=== PATIENT | female | born 1950 | race Caucasian/White ===

== ENCOUNTER → 2022-02-07 10:32 | Outpatient (BNVA) | payer MEDICARE, OTHER, SELFPAY | PROVIDERS: PCP Internal Medicine; Visit Provider Psychiatry & Neurology Neurology | DX: G47.33 Obstructive sleep apnea (adult) (pediatric) (principal); G24.3 Spasmodic torticollis; Z92.29 Personal history of other drug therapy | CPT/HCPCS: 64616; 99211; J0585 ==

== ENCOUNTER → 2022-05-16 10:05 | Outpatient (BNVA) | payer MEDICARE, OTHER, SELFPAY | PROVIDERS: PCP Internal Medicine; Visit Provider Psychiatry & Neurology Neurology | DX: G24.3 Spasmodic torticollis (principal); G47.33 Obstructive sleep apnea (adult) (pediatric); Z92.29 Personal history of other drug therapy | CPT/HCPCS: 64616; 99211; J0585 ==

== ENCOUNTER → 2022-08-19 09:27 | Outpatient (BNVA) | payer MEDICARE, OTHER, SELFPAY | PROVIDERS: PCP Internal Medicine; Visit Provider Psychiatry & Neurology Neurology | DX: G24.3 Spasmodic torticollis (principal); G47.33 Obstructive sleep apnea (adult) (pediatric); Z92.29 Personal history of other drug therapy | CPT/HCPCS: 64616; 99211; J0585 ==

== ENCOUNTER → 2022-11-22 07:46 | Outpatient (BNVA) | payer MEDICARE, OTHER, SELFPAY | PROVIDERS: PCP Internal Medicine; Visit Provider Psychiatry & Neurology Neurology | DX: G24.3 Spasmodic torticollis (principal); G47.33 Obstructive sleep apnea (adult) (pediatric); Z92.29 Personal history of other drug therapy | CPT/HCPCS: 64616; 99211; J0585 ==

== ENCOUNTER → 2023-02-26 08:04 | Outpatient (BNVA) | payer MEDICARE, OTHER, SELFPAY | PROVIDERS: PCP Internal Medicine; Visit Provider Psychiatry & Neurology Neurology | DX: G24.3 Spasmodic torticollis (principal); G47.33 Obstructive sleep apnea (adult) (pediatric); Z92.29 Personal history of other drug therapy | CPT/HCPCS: 64616; 99211; J0585 ==

== ENCOUNTER 2023-06-02 09:07 | Outpatient (AMB) | payer MEDICARE, OTHER, SELFPAY ==
[2023-06-02 09:09] VITALS: PULSE 68; O2SAT 90; BMI 23.4
--- NOTE | 2023-06-02 09:09 | A.OFFVIS_ITS ---
Intake Vital Signs 06/02/23 09:09 Height 5 ft 4 in Weight 136 lb 6 oz BMI 23.4 Pulse 68 Pulse Source Pulse Oximeter Pulse Oximetry (%) 90 L Oxygen Delivery Method Room Air Intake Visit Reasons: BOTOX(B&B) Intake Note: Patient presents for botox injection Allergies codeine Allergy (Intermediate, Verified 06/02/23 09:12) Vomiting Medication List - Last Reconciled 06/02/23 by Zakiya Lee MD atorvastatin 10 mg PO DAILY baclofen 2 qam and 1 qhs as directedPO; lisinopril-hydrochlorothiazide 20-25 mg 1 tab PO DAILY onabotulinumtoxinA (Botox) 100 units IM [id number] HPI HPI Comments History of Present Illness Details 72y/0 female comes for treatment of her cervical dystonia ? Side effects including spread of toxin effect, dysphagia, breathing difficulties , bronchitis etc was discussed in detail and the patient agreed to the procedure.An informed consent was obtained ??? Botulinum toxin type A 100units X 1 -was diluted with 2 cc of normal saline at a concentration of 25 units in 0.5cc saline. Lot number [id number] expiration 02/2025 ??? Muscles injected ??? christo Splenius - 25 units each Right levator- 25 units ???Right Trapezius 25 ??? Total used 100 units PFSH Medical History HTN (hypertension) Hyperlipidemia Surgical History Hx of tonsillectomy Hx of tubal ligation Family History Father Myocardial infarct Social History Alcohol intake: current Patient Tobacco Use Status: Current everyday Tobacco user Physical Exam Vital Signs: Last Vital Signs Pulse 68 06/02/23 09:09 Pulse Ox 90 L 06/02/23 09:09 Oxygen Delivery Method Room Air 06/02/23 09:09 BMI result Body Mass Index 23.4 Const Other: antecollis and right laterocollis General: cooperative and healthy appearing Orientation/consciousness: patient oriented x3 Neuro Other: mild head tremors , right laterocollis General: patient oriented x3, gait normal, tone normal and moves all extremities Cranial nerves: Yes CN's II-XII intact bilaterally Cognition (Neuro): normal cognition Gait exam (Neuro): Other gait observations present (antecollis) Office Procedures Botulinum toxin Injection 11592 - Dystonia Procedure code (CPT) selection complete Office Meds onabotulinumtoxinA Performing Provider: Zakiya Lee MD Administered by: Zakiya Lee MD on 06/02/23 09:33 Dose Route Admin Location Lot Number Expiration Date [employer] 100 unit IM [id number] 02/15/25 9008-0128-72 [employer]/BOTOX Comments: see hpi Assessment & Plan Assessment & Plan (1) Status post injection of onabotulinumtoxinA: Code(s): Z92.29 - Personal history of other drug therapy (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
== END 2023-06-02 09:29 | disposition home or self-care (01) ==
PROVIDERS: Visit Provider Psychiatry & Neurology Neurology
DX: G24.3 Spasmodic torticollis (principal)
CPT/HCPCS: 64616

== ENCOUNTER → 2023-06-02 09:07 | Outpatient (BNVA) | payer MEDICARE, OTHER, SELFPAY | PROVIDERS: Visit Provider Psychiatry & Neurology Neurology | DX: G24.3 Spasmodic torticollis (principal); G47.33 Obstructive sleep apnea (adult) (pediatric); Z92.29 Personal history of other drug therapy; Z99.89 Dependence on other enabling machines and devices | CPT/HCPCS: 64616; J0585 ==

== ENCOUNTER 2023-09-03 08:50 | Outpatient (AMB) | payer MEDICARE, OTHER, SELFPAY ==
[2023-09-03 08:58] VITALS: BP 132/62; PULSE 75; RESP 17; O2SAT 97; BMI 23.5
--- NOTE | 2023-09-03 08:58 | MHC.OFFVIS ---
Intake Vital Signs 09/03/23 08:58 Height 5 ft 4 in Weight 137 lb 2 oz BMI 23.5 BP 132/62 Blood Pressure Location Lt brachial Position Sitting Respiration 17 Pulse 75 Pulse Source Pulse Oximeter Pulse Oximetry (%) 97 Oxygen Delivery Method Room Air Intake Visit Reasons: BOTOX(B&B)-confirmed Intake Note: Pt presents to office for Botox injections. Allergies codeine Allergy (Intermediate, Verified 09/03/23 08:58) Vomiting Medication List - Last Reconciled 09/03/23 by Zakiya Lee MD atorvastatin 10 mg PO DAILY baclofen 2 qam and 1 qhs as directedPO; lisinopril-hydrochlorothiazide 20-25 mg 1 tab PO DAILY onabotulinumtoxinA (Botox) 100 units IM [id number] HPI HPI Comments History of Present Illness Details 72y/0 female comes for treatment of her cervical dystonia ? Side effects including spread of toxin effect, dysphagia, breathing difficulties , bronchitis etc was discussed in detail and the patient agreed to the procedure.An informed consent was obtained ??? Botulinum toxin type A 100units X 1 -was diluted with 2 cc of normal saline at a concentration of 25 units in 0.5cc saline. Lot number [id number] expiration 12/2025 ??? Muscles injected ??? christo Splenius - 25 units each Right levator- 25 units ???Right Trapezius 25 ??? Total used 100 units PFSH Medical History Hyperlipidemia HTN (hypertension) Surgical History Hx of tubal ligation Hx of tonsillectomy Family History Father Myocardial infarct Social History Alcohol intake: current Patient Tobacco Use Status: Current everyday Tobacco user Physical Exam Vital Signs: Last Vital Signs Pulse 75 09/03/23 08:58 Resp 17 09/03/23 08:58 BP 132/62 09/03/23 08:58 Pulse Ox 97 09/03/23 08:58 Oxygen Delivery Method Room Air 09/03/23 08:58 BMI result Body Mass Index 23.5 Const Other: antecollis and right laterocollis General: cooperative and healthy appearing Orientation/consciousness: patient oriented x3 Neuro Other: mild head tremors , right laterocollis General: patient oriented x3, gait normal, tone normal and moves all extremities Cranial nerves: Yes CN's II-XII intact bilaterally Cognition (Neuro): normal cognition Gait exam (Neuro): Other gait observations present (antecollis) Office Procedures Botulinum toxin Injection 19711 - Dystonia Procedure code (CPT) selection complete Office Meds onabotulinumtoxinA 100 unit solution for injection Performing Provider: Zakiya Lee MD Performing Location[place] [facility] [place] [facility] Administered by: Zakiya Lee MD on 09/03/23 09:38 Dose Route Admin Location Dispensed Lot Number Expiration Date [facility] User Experience Designer 100 unit IM 100 units [id number] 12/18/25 8421-6264-00 [employer]ER[employer]/BOTOX Comments: see hpi Assessment & Plan Assessment & Plan (1) Status post injection of onabotulinumtoxinA: Code(s): Z92.29 - Personal history of other drug therapy (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
== END 2023-09-03 09:32 | disposition home or self-care (01) ==
PROVIDERS: PCP Student in an Organized Health Care Education/Training Program; Visit Provider Psychiatry & Neurology Neurology
DX: G24.3 Spasmodic torticollis (principal)
CPT/HCPCS: 64616

== ENCOUNTER → 2023-09-03 08:50 | Outpatient (BNVA) | payer MEDICARE, OTHER, SELFPAY | PROVIDERS: PCP Student in an Organized Health Care Education/Training Program; Visit Provider Psychiatry & Neurology Neurology | DX: G24.3 Spasmodic torticollis (principal); G47.33 Obstructive sleep apnea (adult) (pediatric); Z92.29 Personal history of other drug therapy | CPT/HCPCS: 64616; 99211; J0585 ==

== ENCOUNTER 2023-12-09 08:48 | Outpatient (AMB) | payer MEDICARE, OTHER, SELFPAY ==
--- NOTE | 2023-12-09 08:52 | MHC.OFFVIS ---
Intake Vital Signs 12/09/23 08:53 Height 5 ft 4 in Weight 134 lb 8 oz BMI 23.1 BP 154/88 H Blood Pressure Location Lt brachial Position Sitting Respiration 17 Pulse 83 Pulse Source Pulse Oximeter Pulse Oximetry (%) 97 Oxygen Delivery Method Room Air Intake Visit Reasons: BOTOX(B&B) - Confirmed Intake Note: Pt presents to the office for Botox injections. Treasury Director Required: No Allergies alendronate sodium [From Fosamax] Allergy (Intermediate, Verified 12/09/23 08:57) Diarrhea codeine Allergy (Intermediate, Verified 12/09/23 08:57) Vomiting Medication List - Last Reconciled 12/09/23 by Zakiya Lee MD atorvastatin 10 mg PO DAILY baclofen 2 qam and 1 qhs as directedPO; calcium carbonate (Calcium 500) 500 mg PO DAILY lisinopril-hydrochlorothiazide 20-25 mg 1 tab PO DAILY onabotulinumtoxinA (Botox) 100 units IM [id number] HPI HPI Comments History of Present Illness Details 73y/0 female comes for treatment of her cervical dystonia ? Side effects including spread of toxin effect, dysphagia, breathing difficulties , bronchitis etc was discussed in detail and the patient agreed to the procedure.An informed consent was obtained ??? Botulinum toxin type A 100units X 1 -was diluted with 2 cc of normal saline at a concentration of 25 units in 0.5cc saline. Lot number [id number] expiration 02/2026 ??? Muscles injected ??? christo Splenius - 25 units each Right levator- 25 units ???Right Trapezius 25 ??? Total used 100 units PFSH Medical History Hyperlipidemia HTN (hypertension) Surgical History Hx of tubal ligation Hx of tonsillectomy Family History Father Myocardial infarct Social History Alcohol intake: current Patient Tobacco Use Status: Current everyday Tobacco user Physical Exam Vital Signs: Last Vital Signs Pulse 83 12/09/23 08:53 Resp 17 12/09/23 08:53 BP 154/88 H 12/09/23 08:53 Pulse Ox 97 12/09/23 08:53 Oxygen Delivery Method Room Air 12/09/23 08:53 BMI result Body Mass Index 23.1 Const Other: antecollis and right laterocollis General: cooperative and healthy appearing Orientation/consciousness: patient oriented x3 Neuro Other: mild head tremors , right laterocollis General: patient oriented x3, gait normal, tone normal and moves all extremities Cranial nerves: Yes CN's II-XII intact bilaterally Cognition (Neuro): normal cognition Gait exam (Neuro): Other gait observations present (antecollis) Office Procedures Botulinum toxin Injection 35788 - Dystonia Procedure code (CPT) selection complete Office Meds onabotulinumtoxinA 100 unit solution for injection Performing Provider: Zakiya Lee MD [place]forming [place] [facility] [place] [facility] Administered by: Zakiya Lee MD on 12/09/23 09:44 Dose Route Admin Location Dispensed Lot Number Expiration Date [facility] [employer] Buying 100 unit IM 100 units [id number] 04/17/26 8417-1473-05 [employer] 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
[2023-12-09 08:53] VITALS: BP 154/88; PULSE 83; RESP 17; O2SAT 97; BMI 23.1
== END 2023-12-09 09:15 | disposition home or self-care (01) ==
PROVIDERS: PCP Student in an Organized Health Care Education/Training Program; Visit Provider Psychiatry & Neurology Neurology
DX: G24.3 Spasmodic torticollis (principal)
CPT/HCPCS: 64616

== ENCOUNTER → 2023-12-09 08:48 | Outpatient (BNVA) | payer MEDICARE, OTHER, SELFPAY | PROVIDERS: PCP Student in an Organized Health Care Education/Training Program; Visit Provider Psychiatry & Neurology Neurology | DX: G24.3 Spasmodic torticollis (principal); G47.33 Obstructive sleep apnea (adult) (pediatric); Z92.29 Personal history of other drug therapy | CPT/HCPCS: 64616; 99211; J0585 ==

== ENCOUNTER 2024-03-10 08:56 | Outpatient (AMB) | payer MEDICARE, OTHER, SELFPAY ==
--- NOTE | 2024-03-10 09:03 | A.OFFVIS_ITS ---
Vital Signs 03/10/24 09:04 Height 5 ft 4 in Weight 134 lb BMI 23.0 BP 128/64 Blood Pressure Location Rt brachial Position Sitting Respiration 16 Pulse 76 Pulse Source Pulse Oximeter Pulse Oximetry (%) 97 Oxygen Delivery Method Room Air Intake Visit Reasons: Botox (B&B) appt-CONF Intake Note: Pt presents to office for Botox injections. Allergies alendronate sodium [From Fosamax] Allergy (Intermediate, Verified 03/10/24 09:03) Diarrhea codeine Allergy (Intermediate, Verified 03/10/24 09:03) Vomiting Medication List - Last Reconciled 03/10/24 by Zakiya Lee MD atorvastatin 10 mg PO DAILY baclofen 2 qam and 1 qhs as directedPO; calcium carbonate (Calcium 500) 500 mg PO DAILY lisinopril-hydrochlorothiazide 20-25 mg 1 tab PO DAILY onabotulinumtoxinA (Botox) 100 units IM [id number] HPI Comments Details: 73y/0 female comes for treatment of her cervical dystonia ? Side effects including spread of toxin effect, dysphagia, breathing difficulties , bronchitis etc was discussed in detail and the patient agreed to the procedure.An informed consent was obtained ??? Botulinum toxin type A 100units X 1 -was diluted with 2 cc of normal saline at a concentration of 25 units in 0.5cc saline. Lot number [id number] expiration 02/2026 ??? Muscles injected ??? christo Splenius - 25 units each Right levator- 25 units ???Right Trapezius 25 ??? Total used 100 units PFSH Medical History Hyperlipidemia HTN (hypertension) Surgical History Hx of tubal ligation Hx of tonsillectomy Family History Father Myocardial infarct Social History Alcohol intake: current Patient Tobacco Use Status: Current everyday Tobacco user Physical Exam Vital Signs: Last Vital Signs Pulse 76 03/10/24 09:04 Resp 16 03/10/24 09:04 BP 128/64 03/10/24 09:04 Pulse Ox 97 03/10/24 09:04 Oxygen Delivery Method Room Air 03/10/24 09:04 BMI result Body Mass Index 23.0 Const Other: antecollis and right laterocollis General: cooperative and healthy appearing Orientation/consciousness: patient oriented x3 Neuro Other: mild head tremors , right laterocollis General: patient oriented x3, gait normal, tone normal and moves all extremities Cranial nerves: Yes CN's II-XII intact bilaterally Cognition (Neuro): normal cognition Gait exam (Neuro): Other gait observations present (antecollis) Office Procedures Botulinum toxin Injection 53270 - Dystonia Procedure code (CPT) selection complete Office Meds onabotulinumtoxinA 100 unit solution for injection Performing Provider: Zakiya Lee MD Performing Location: [facility] [place] [facility] Administered by: Zakiya Lee MD on 03/10/24 09:30 Dose Route Admin Location Dispensed Lot Number Expiration Date [facility] Furniture Builder 100 unit IM 100 units [id number] 02/15/26 1909-4963-62 [employer]ER[employer]/BOTOX Comments: see HPI Assessment & Plan Assessment & Plan (1) Status post injection of onabotulinumtoxinA: Code(s): Z92.29 - Personal history of other drug therapy (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 Category: Medical (3) Obstructive sleep apnea: Code(s): G47.33 - Obstructive sleep apnea (adult) (pediatric) Category: Medical Plan Patient tolerated the procedure well she will call with any side effects continue CPAP compliance stressed Orders: Orders AMB Botulinum toxin Injection Today G24.3 - Spasmodic torticollis Medications: New onabotulinumtoxinA 100 units IM ONCE 1 ea 0RF spasmodic torticollis G24.3 - Spasmodic torticollis Coding Level of Care Code Est Pt Level 1 (73388) Diagnoses Status post injection of onabotulinumtoxinA Z92.29 Spasmodic torticollis G24.3 Obstructive sleep apnea G47.33 CPT Codes Botox Injection - Botox 4: 50952 - Dystonia ([id number])
[2024-03-10 09:04] VITALS: BP 128/64; PULSE 76; RESP 16; O2SAT 97; BMI 23.0
== END 2024-03-10 09:27 | disposition home or self-care (01) ==
PROVIDERS: PCP Student in an Organized Health Care Education/Training Program; Visit Provider Psychiatry & Neurology Neurology
DX: G24.3 Spasmodic torticollis (principal)
CPT/HCPCS: 64616

== ENCOUNTER → 2024-03-10 08:56 | Outpatient (BNVA) | payer MEDICARE, OTHER, SELFPAY | PROVIDERS: PCP Student in an Organized Health Care Education/Training Program; Visit Provider Psychiatry & Neurology Neurology | DX: G24.3 Spasmodic torticollis (principal); G47.33 Obstructive sleep apnea (adult) (pediatric); Z92.29 Personal history of other drug therapy | CPT/HCPCS: 64616; 99211; J0585 ==

== ENCOUNTER 2024-06-14 09:20 | Outpatient (AMB) | payer MEDICARE, OTHER, SELFPAY ==
--- NOTE | 2024-06-14 09:37 | MHC.OFFVIS ---
Vital Signs 06/14/24 09:40 Height 5 ft 4 in Weight 134 lb BMI 23.0 Intake Visit Reasons: Botox - Conf Intake Note: Patient presents for botox injection Allergies alendronate sodium [From Fosamax] Allergy (Intermediate, Verified 06/14/24 09:39) Diarrhea codeine Allergy (Intermediate, Verified 06/14/24 09:39) Vomiting Medication List - Last Reconciled 06/14/24 by Zakiya Lee MD atorvastatin 10 mg PO DAILY baclofen 2 qam and 1 qhs as directedPO; calcium carbonate (Calcium 500) 500 mg PO DAILY lisinopril-hydrochlorothiazide 20-25 mg 1 tab PO DAILY onabotulinumtoxinA (Botox) 100 units IM [id number] HPI Comments Details: 73y/0 female comes for treatment of her cervical dystonia ? Side effects including spread of toxin effect, dysphagia, breathing difficulties , bronchitis etc was discussed in detail and the patient agreed to the procedure.An informed consent was obtained ??? Botulinum toxin type A 100units X 1 -was diluted with 2 cc of normal saline at a concentration of 25 units in 0.5cc saline. Lot number [id number] expiration 04/2026 ??? Muscles injected ??? christo Splenius - 25 units each Right levator- 25 units ???Right Trapezius 25 ??? Total used 100 units PFSH Medical History Hyperlipidemia HTN (hypertension) Surgical History Hx of tubal ligation Hx of tonsillectomy Family History Father Myocardial infarct Social History Alcohol intake: current Patient Tobacco Use Status: Current everyday Tobacco user Physical Exam Vital Signs: BMI result Body Mass Index 23.0 Const Other: antecollis and right laterocollis General: cooperative and healthy appearing Orientation/consciousness: patient oriented x3 Neuro Other: mild head tremors , right laterocollis General: patient oriented x3, gait normal, tone normal and moves all extremities Cranial nerves: Yes CN's II-XII intact bilaterally Cognition (Neuro): normal cognition Gait exam (Neuro): Other gait observations present (antecollis) Office Procedures Botulinum toxin Injection 48519 - Dystonia Procedure code (CPT) selection complete Office Meds onabotulinumtoxinA 100 unit solution for injection Performing Provider: Zakiya Lee MD [place] [facility] [place] [facility] Administered by: Zakiya Lee MD on 06/14/24 15:41 Dose Route Admin Location Dispensed Lot Number Expiration Date [facility] Commercial Underwriter 100 unit IM 100 units [id number] 04/17/26 6632-3026-92 [employer]/BOTOX Assessment & Plan Assessment & Plan (1) Status post injection of onabotulinumtoxinA: Code(s): Z92.29 - Personal history of other drug therapy (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 Category: Medical (3) Obstructive sleep apnea: Code(s): G47.33 - Obstructive sleep apnea (adult) (pediatric) Category: Medical Plan Patient tolerated the procedure well she will call with any side effects continue CPAP compliance stressed Orders: Orders AMB Botulinum toxin Injection Today G24.3 - Spasmodic torticollis Medications: New onabotulinumtoxinA 100 units IM ONCE 1 ea 0RF torticollis G24.3 - Spasmodic torticollis Coding Level of Care Code Est Pt Level 1 (94343) Diagnoses Status post injection of onabotulinumtoxinA Z92.29 Spasmodic torticollis G24.3 Obstructive sleep apnea G47.33 CPT Codes Botox Injection - Botox 4: 32448 - Dystonia ([id number])
[2024-06-14 09:40] VITALS: BMI 23.0
== END 2024-06-14 09:55 | disposition home or self-care (01) ==
PROVIDERS: PCP Student in an Organized Health Care Education/Training Program; Visit Provider Psychiatry & Neurology Neurology
DX: G24.3 Spasmodic torticollis (principal)
CPT/HCPCS: 64616

== ENCOUNTER → 2024-06-14 09:20 | Outpatient (BNVA) | payer MEDICARE, OTHER, SELFPAY | PROVIDERS: PCP Student in an Organized Health Care Education/Training Program; Visit Provider Psychiatry & Neurology Neurology | DX: G24.3 Spasmodic torticollis (principal); G47.33 Obstructive sleep apnea (adult) (pediatric); Z92.29 Personal history of other drug therapy | CPT/HCPCS: 64616; 99211; J0585 ==

== ENCOUNTER 2024-09-14 09:20 | Outpatient (AMB) | payer MEDICARE, OTHER, SELFPAY ==
[2024-09-14 09:24] VITALS: BP 130/58; PULSE 76; O2SAT 97
--- NOTE | 2024-09-14 09:24 | A.OFFVIS_ITS ---
Vital Signs 09/14/24 09:24 Height 5 ft 4 in BP 130/58 L Blood Pressure Location Rt brachial Position Sitting Pulse 76 Pulse Source Pulse Oximeter Pulse Oximetry (%) 97 Oxygen Delivery Method Room Air Intake Visit Reasons: Botox (B&B) Intake Note: Patient presents for a follow up. ( Botox ) Retail Special Event Associate Required: No Accompanied by: Self / Same As Patient Allergies alendronate sodium [From Fosamax] Allergy (Intermediate, Verified 09/14/24 09:29) Diarrhea codeine Allergy (Intermediate, Verified 09/14/24 09:29) Vomiting Medication List - Last Reconciled 09/14/24 by Zakiya Lee MD alendronate (Fosamax) 70 mg PO QWEEK atorvastatin 10 mg PO DAILY baclofen 2 qam and 1 qhs as directedPO; calcium carbonate (Calcium 500) 500 mg PO DAILY lisinopril-hydrochlorothiazide 20-25 mg 1 tab PO DAILY onabotulinumtoxinA (Botox) 100 units IM [id number] HPI Comments Details: 73y/0 female comes for treatment of her cervical dystonia ? Side effects including spread of toxin effect, dysphagia, breathing difficulties , bronchitis etc was discussed in detail and the patient agreed to the procedure.An informed consent was obtained ??? Botulinum toxin type A 100units X 1 -was diluted with 2 cc of normal saline at a concentration of 25 units in 0.5cc saline. Lot number C [id number] expiration 09/2026 ??? Muscles injected ??? christo Splenius - 25 units each Right levator- 25 units ???Right Trapezius 25 ??? Total used 100 units PFSH Medical History Hyperlipidemia HTN (hypertension) Surgical History Hx of tubal ligation Hx of tonsillectomy Family History Father Myocardial infarct Social History Alcohol intake: current Patient Tobacco Use Status: Current everyday Tobacco user Physical Exam Vital Signs: Last Vital Signs Pulse 76 09/14/24 09:24 BP 130/58 L 09/14/24 09:24 Pulse Ox 97 09/14/24 09:24 Oxygen Delivery Method Room Air 09/14/24 09:24 Const Other: antecollis and right laterocollis General: cooperative and healthy appearing Orientation/consciousness: patient oriented x3 Neuro Other: mild head tremors , right laterocollis General: patient oriented x3, gait normal, tone normal and moves all extremities Cranial nerves: Yes CN's II-XII intact bilaterally Cognition (Neuro): normal cognition Gait exam (Neuro): Other gait observations present (antecollis) Office Procedures Botulinum toxin Injection 22070 - Dystonia Procedure code (CPT) selection complete Office Meds onabotulinumtoxinA 100 unit solution for injection Performing Provider: Zakiya Lee MD Performing Location: [facility] [place] [facility] Administered by: Zakiya Lee MD on 09/14/24 10:05 Dose Route Admin Location Dispensed Lot Number Expiration Date [place] [employer] 100 unit IM 100 units [id number] 09/17/26 0493-6119-37 [employer]ERGAN/BOTOX Comments: see hpi Assessment & Plan Assessment & Plan (1) Status post injection of onabotulinumtoxinA: Code(s): Z92.29 - Personal history of other drug therapy (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 Category: Medical (3) Obstructive sleep apnea: Code(s): G47.33 - Obstructive sleep apnea (adult) (pediatric) Category: Medical Plan Patient tolerated the procedure well she will call with any side effects continue CPAP compliance stressed Orders: Orders AMB Botulinum toxin Injection Today G24.3 - Spasmodic torticollis Medications: New onabotulinumtoxinA 100 units IM ONCE 1 ea 0RF torticollis G24.3 - Spasmodic torticollis Coding Level of Care Code Est Pt Level 1 (28984) Diagnoses Status post injection of onabotulinumtoxinA Z92.29 Spasmodic torticollis G24.3 Obstructive sleep apnea G47.33 CPT Codes Botox Injection - Botox 4: 04409 - Dystonia ([id number])
== END 2024-09-14 10:00 | disposition home or self-care (01) ==
LOC: HO.HSMS 09:21
PROVIDERS: PCP Student in an Organized Health Care Education/Training Program; Visit Provider Psychiatry & Neurology Neurology
DX: G24.3 Spasmodic torticollis (principal)
CPT/HCPCS: 64616

== ENCOUNTER → 2024-09-14 09:20 | Outpatient (BNVA) | payer MEDICARE, OTHER, SELFPAY | PROVIDERS: PCP Student in an Organized Health Care Education/Training Program; Visit Provider Psychiatry & Neurology Neurology | DX: G24.3 Spasmodic torticollis (principal); G47.33 Obstructive sleep apnea (adult) (pediatric); Z92.29 Personal history of other drug therapy | CPT/HCPCS: 64616; 99211; J0585 ==

== ENCOUNTER 2025-01-13 09:30 | Outpatient (AMB) | payer MEDICARE, OTHER, SELFPAY ==
[2025-01-13 09:35] VITALS: BP 122/68; PULSE 78; O2SAT 98
--- NOTE | 2025-01-13 09:35 | A.OFFVIS_ITS ---
Vital Signs 01/13/25 09:35 Height 5 ft 4 in BP 122/68 Blood Pressure Location Rt brachial Position Sitting Pulse 78 Pulse Source Pulse Oximeter Pulse Oximetry (%) 98 Oxygen Delivery Method Room Air Intake Visit Reasons: Botox Intake Note: patient presents for botox injection - practice supplied Allergies alendronate sodium [From Fosamax] Allergy (Intermediate, Verified 01/13/25 09:36) Diarrhea codeine Allergy (Intermediate, Verified 01/13/25 09:36) Vomiting Medication List - Last Reconciled 01/13/25 by Zakiya Lee MD alendronate (Fosamax) 70 mg PO QWEEK atorvastatin 10 mg PO DAILY baclofen 2 qam and 1 qhs as directedPO; calcium carbonate (Calcium 500) 500 mg PO DAILY lisinopril-hydrochlorothiazide 20-25 mg 1 tab PO DAILY onabotulinumtoxinA (Botox) 100 units IM [id number] HPI Comments Details: 74y/0 female comes for treatment of her cervical dystonia ? Side effects including spread of toxin effect, dysphagia, breathing difficulties , bronchitis etc was discussed in detail and the patient agreed to the procedure.An informed consent was obtained ??? Botulinum toxin type A 100units X 1 -was diluted with 2 cc of normal saline at a concentration of 25 units in 0.5cc saline. Lot number [id number] expiration 03/13 ??? Muscles injected ??? christo Splenius - 25 units each Right levator- 25 units ???Right Trapezius 25 ??? Total used 100 units PFSH Medical History Hyperlipidemia HTN (hypertension) Surgical History Hx of tubal ligation Hx of tonsillectomy Family History Father Myocardial infarct Social History Alcohol intake: current Patient Tobacco Use Status: Current everyday Tobacco user Physical Exam Vital Signs: Last Vital Signs Pulse 78 01/13/25 09:35 BP 122/68 01/13/25 09:35 Pulse Ox 98 01/13/25 09:35 Oxygen Delivery Method Room Air 01/13/25 09:35 Const Other: antecollis and right laterocollis General: cooperative and healthy appearing Orientation/consciousness: patient oriented x3 Neuro Other: mild head tremors , right laterocollis General: patient oriented x3, gait normal, tone normal and moves all extremities Cranial nerves: Yes CN's II-XII intact bilaterally Cognition (Neuro): normal cognition Gait exam (Neuro): Other gait observations present (antecollis) Office Procedures Botulinum toxin Injection 91356 - Dystonia Procedure code (CPT) selection complete Office Meds onabotulinumtoxinA 100 unit solution for injection Performing Provider: Zakiya Lee MD Performing Location: [facility] Administered by: Zakiya Lee MD on 01/13/25 13:12 Dose Route Admin Location Dispensed Lot Number Expiration Date [facility] [employer] 100 unit IM 100 units [id number] [employer]ER[employer]/BOTOX Comments: see hpi Assessment & Plan Assessment & Plan (1) Status post injection of onabotulinumtoxinA: Code(s): Z92.29 - Personal history of other drug therapy (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 Category: Medical (3) Obstructive sleep apnea: Code(s): G47.33 - Obstructive sleep apnea (adult) (pediatric) Category: Medical Plan Patient tolerated the procedure well she will call with any side effects continue CPAP compliance stressed Orders: Orders AMB Botulinum toxin Injection Today G24.3 - Spasmodic torticollis Medications: New onabotulinumtoxinA 100 units IM ONCE 1 ea 0RF torticollis G24.3 - Spasmodic torticollis Refilled baclofen 2 qam and 1 qhs as directedPO; 270 tabs 3RF Coding Level of Care Code Est Pt Level 1 (89147) Diagnoses Status post injection of onabotulinumtoxinA Z92.29 Spasmodic torticollis G24.3 Obstructive sleep apnea G47.33 CPT Codes Botox Injection - Botox 4: 15105 - Dystonia ([id number])
--- OUTSIDE RECORDS SUMMARY | 2025-01-13 10:44 | XMS_ITS | Data Portability ---
Author Organization [facility], Main Office Address [address] [facility] [address] [place] [address] Care Team Providers Care Rfid Developer Name Role Phone AUSTIN ARAIZA Referring Provider SEJAL BACH Referring Provider [phone] KEITH JACK Clinical Care Coordinator GELY ALVARADO Primary Care Provider Assessment No assessment recorded. Plan of Treatment Reminders Order Date Submit Date Provider Last Modified By Organization Details Last Modified Time Details Appointments None recorded. Lab CBC w/ auto diff 2023 024 OFE [facility], [address] [place], [address], 4 06:10:31 TSH, ultra-sensi tive, serum 2023 024 [facility], [address] [place], [address], 4 06:10:33 ALT (alanine aminotransf erase), serum or plasma 2023 024 OFE [facility] (Centralized Electronic Ordering - All Locations), Patient Can Go To The Location Of Their Choice, [address] 4 06:10:34 lipid panel, serum 2023 024 OFE [facility] (Centralized Electronic Ordering - All Locations), Patient Can Go To The Location Of Their Choice, [address] 4 06:10:32 lipid panel, serum 07/12/ 2023 07/13/2 023 OFE [facility], [address], [address], [place], [address], 3 16:48:45 BMP, serum or plasma 2022 023 OFE [facility], [address], [address], [place], [address], 3 16:48:44 CBC w/ auto diff 2022 023 OFE [facility], [address], [address], [place], [address], 3 16:31:38 TSH, serum or plasma 2022 023 OFE [facility], [address], [address], [place], [address], 3 16:48:46 Referral endocrinolo gy referral 2023 024 jeannie Vaughn MD, [address] , [facility], [place], [address], 4 11:04:27 physical therapist referral - At risk for falling 2021 022 [email or web address] 4 Not available 2 11:04:57 gynecologis t referral 2021 022 [email or web address] 3 Not available 3 10:58:34 Procedures None recorded. Surgeries None recorded. Imaging LDCT, chest, for lung cancer screening 2023 024 [facility], [address], [place], [address], 5 11:40:05 MAMMO, screening, bilateral 2023 024 [facility], [address], [address], [place], [address], 4 16:56:31 bone density 2022 023 OFE Not available 15:27:56 LDCT, chest, for lung cancer screening - The patient does not have lung cancer or signs of lung cancer at this time.Mikey estes has not had a chest CT in the last 12 months. *SHARED DECISION MAKING*I have discussed the benefits and risks of lung cancer screening in compliance with [facility] shared decision making guidelines including early detection, radiation exposure, false negative rates, false positive rates, over-diagno sis, incidental findings, impact of comorbiditi es and the ability or willingness to undergo diagnosis and treatment if something concerning is found.I have reviewed with the patient the importance of abstinence if a former smoker, and importance of smoking cessation if a current smoker. I have furnished the patient with information and resources available to quit smoking if appropriate . [email or web address] [address] [facility], [place], [address], 3 13:11:00 bone density 2021 022 [email or web address] 3 [facility], [address], [address], [place], [address], 2 14:21:41 Medication Orders Fosamax 70 mg tablet 2023 024 OFE [facility], [facility], [place], [address], 4 09:18:15 Patient TargetsNo targets recorded. Patient Instructions Encounter Date Encounter Id Patient Instructions Last Modified By Organization Details Last Modified Time 05/15/2022 [id number] Lung Cancer Screening [email or web address] Not available 05/15/2022 11:10:47 medicare preventive services guide (female 74yrs and under) [email or web address] Not available 05/15/2022 11:01:08 preventing falls: care instructions [email or web address] Not available 05/15/2022 11:01:08 05/29/2023 [id number] advance care planning: care instructions Not available 05/29/2023 10:49:38 advance directives: care instructions Not available 05/29/2023 10:49:37 complete PFT* [email or web address] Not available 11:20:02 well visit, over 65: care instructions Not available 05/29/2023 10:49:37 preventing falls: care instructions Not available 05/29/2023 10:49:37 11/18/2023 [id number] osteoporosis: care instructions Not available 11/18/2023 10:55:00 09/16/2024 [id number] advance care planning: care instructions Not available 09/16/2024 14:42:28 osteoporosis: care instructions Not available 09/16/2024 14:08:37 chronic obstructive pulmonary disease (COPD): care instructions Not available 09/16/2024 14:08:38 learning about copd and how to prevent lung infections Not available 09/16/2024 14:08:37 sleep apnea: care instructions Not available 09/16/2024 14:08:38 high blood pressure: care instructions Not available 09/16/2024 14:08:37 learning about high blood pressure Not available 09/16/2024 14:08:37 tinnitus: care instructions Not available 09/16/2024 14:08:38 Reason for Referral Physical Therapist Referral for Adult health examination At risk for falling Referring Physician: Farhana Blanco [facility], Encounter Date: 05/15/2022 Computer Language Coder Referral for Sc reening for malignant neoplasm of cervix Referring Physician: Farhana Blanco [facility], Encounter Date: 05/15/2022 Endocrinology Referral for O steoporosis Referring Physician: Gely Alvarado [facility], Encounter Date: 11/18/2023 Results Created Date Observation Date Name Description Value Unit Range Abnormal Flag Note LastModifiedBy Organization Detail LastModifiedTime 05/30/20 23 05/30/2023 COMPL ETE CBC WITH DIFF WBC 6.9 K/mm3 (4.0-1 1.0) Not Available [facility] (Centralized Electronic Ordering - All Locations) Patient Can Go To The Location Of Their Choice, 05/30/2023 16:31:37 05/30/2005/30/2023 COMPL ETE CBC WITH DIFF RBC 4.58 M/mm3 (4.20- 5.40) Not Available [facility] (Centralized Electronic Ordering - All Locations) Patient Can Go To The Location Of Their Choice, 05/30/2023 16:31:37 05/30/2005/30/2023 COMPL ETE CBC WITH DIFF HGB 14.2 gm/dL (11.7- 15.5) Not Available [facility] (Centralized Electronic Ordering - All Locations) Patient Can Go To The Location Of Their Choice, 05/30/2023 16:31:37 05/30/2005/30/2023 COMPL ETE CBC WITH DIFF HCT 44.4 % (35.7- 45.8) Not Available [facility] (Centralized Electronic Ordering - All Locations) Patient Can Go To The Location Of Their Choice, 05/30/2023 16:31:37 05/30/2005/30/2023 COMPL ETE CBC WITH DIFF MCV 96.9 fL (80.0- 100.0) Not Available [facility] (Centralized Electronic Ordering - All Locations) Patient Can Go To The Location Of Their Choice, 05/30/2023 16:31:37 05/30/2005/30/2023 COMPL ETE CBC WITH DIFF MCH 31.0 pg (27.0- 34.0) Not Available [facility] (Centralized Electronic Ordering - All Locations) Patient Can Go To The Location Of Their Choice, 05/30/2023 16:31:37 05/30/2005/30/2023 COMPL ETE CBC WITH DIFF MCHC 32.0 g/dL (33.0- 37.0) low Not Available [facility] (Centralized Electronic Ordering - All Locations) Patient Can Go To The Location Of Their Choice, 05/30/2023 16:31:37 05/30/2005/30/2023 COMPL ETE CBC WITH DIFF plt 353 K/mm3 (150-4 60) Not Available [facility] (Centralized Electronic Ordering - All Locations) Patient Can Go To The Location Of Their Choice, 05/30/2023 16:31:37 05/30/20 23 05/30/2023 COMPL ETE CBC WITH DIFF RDW-SD 44.3 fL (<47.0 ) Not Available [facility] (Centralized Electronic Ordering - All Locations) Patient Can Go To The Location Of Their Choice, 05/30/2023 16:31:37 05/30/2005/30/2023 COMPL ETE CBC WITH DIFF MPV 8.9 fL (9.4-1 2.4) low Not Available [facility] (Centralized Electronic Ordering - All Locations) Patient Can Go To The Location Of Their Choice, 05/30/2023 16:31:37 05/30/2005/30/2023 COMPL ETE CBC WITH DIFF automated NRBC 0.0 #/100 _WBC' s Not Available [facility] (Centralized Electronic Ordering - All Locations) Patient Can Go To The Location Of Their Choice, 05/30/2023 16:31:37 05/30/2005/30/2023 COMPL ETE CBC WITH DIFF abs. NRBC 0.0 K/mm3 Not Available [facility] (Centralized Electronic Ordering - All Locations) Patient Can Go To The Location Of Their Choice, 05/30/2023 16:31:37 05/30/2005/30/2023 COMPL ETE CBC WITH DIFF neut # 4.0 K/mm3 (1.3-7 .0) Not Available [facility] (Centralized Electronic Ordering - All Locations) Patient Can Go To The Location Of Their Choice, 05/30/2023 16:31:37 05/30/2005/30/2023 COMPL ETE CBC WITH DIFF lymph # 2.1 K/mm3 (0.8-3 .1) Not Available [facility] (Centralized Electronic Ordering - All Locations) Patient Can Go To The Location Of Their Choice, 05/30/2023 16:31:37 05/30/2005/30/2023 COMPL ETE CBC WITH DIFF mono# 0.6 K/mm3 (0.4-0 .9) Not Available [facility] (Centralized Electronic Ordering - All Locations) Patient Can Go To The Location Of Their Choice, 05/30/2023 16:31:37 05/30/20 23 05/30/2023 COMPL ETE CBC WITH DIFF eo # 0.1 K/mm3 (0.0-0 .4) Not Available [facility] ([facility]ized Electronic Ordering - All Locations) Patient Can Go To The Location Of Their Choice, 05/30/2023 16:31:37 05/30/2005/30/2023 COMPL ETE CBC WITH DIFF baso # 0.1 K/mm3 (0.0-0 .1) Not Available [facility] (Centralized [facility] Ordering - All Locations) Patient Can Go To The Location Of Their Choice, 05/30/2023 16:31:37 05/30/2005/30/2023 COMPL ETE CBC WITH DIFF abs. imm gran 0.0 K/mm3 Not Available [facility] ([facility] Order[facility] - All Locations) Patient Can Go To The Location Of Their Choice, 05/30/2023 16:31:37 05/30/2005/30/2023 COMPL ETE CBC WITH DIFF neut 58.3 % (44-76 ) Not Available [facility] (Centralized Electronic Ordering - All Locations) Patient Can Go To The Location Of Their Choice, 05/30/2023 16:31:37 05/30/2005/30/2023 COMPL ETE CBC WITH DIFF lymph 30.4 % (15-43 ) Not Available [facility] ([facility] Ordering - All Locations) Patient Can Go To The Location Of Their Choice, 05/30/2023 16:31:37 05/30/2005/30/2023 COMPL ETE CBC WITH DIFF monocyte 8.3 % (4.5-1 0.5) Not Available [facility] ([facility] Ordering - All Locations) Patient Can Go To The Location Of Their Choice, 05/30/2023 16:31:37 05/30/2005/30/2023 COMPL ETE CBC WITH DIFF eo 1.6 % (0-6) Not Available [facility] ([facility] Ordering - All Locations) Patient Can Go To The Location Of Their Choice, 05/30/2023 16:31:37 05/30/2005/30/2023 COMPL ETE CBC WITH DIFF baso 1.0 % (0-2) Not Available [facility] ([facility] Ordering - All Locations) Patient Can Go To The Location Of Their Choice, 05/30/2023 16:31:37 05/30/2005/30/2023 COMPL ETE CBC WITH DIFF imm gran 0.4 % Not Available [facility] ([facility]ized [facility] Ordering - All Locations) Patient Can Go To The Location Of Their Choice, 05/30/2023 16:31:37 05/30/2005/30/2023 BASIC METAB OLIC PANEL glucose 111 mg/dL (70-99 ) high Not Available [facility] ([facility]ized [facility] Ordering - All Locations) Patient Can Go To The Location Of Their Choice, 05/30/2023 16:48:44 05/30/2005/30/2023 BASIC METAB OLIC PANEL BUN 14 mg/dL (8-23) Not Available [facility] ([facility]ized [facility] Ordering - All Locations) Patient Can Go To The Location Of Their Choice, 05/30/2023 16:48:44 05/30/2005/30/2023 BASIC METAB OLIC PANEL creatinine 0.8 mg/dL (0.5-1 .0) Not Available [facility] (Centralized Electronic Ordering - All Locations) Patient Can Go To The Location Of Their Choice, 05/30/2023 16:48:44 05/30/2005/30/2023 BASIC METAB OLIC PANEL sodium 140 mmol/ L (133-1 45) Not Available [facility] ([facility]ized [facility] Ordering - All Locations) Patient Can Go To The Location Of Their Choice, 05/30/2023 16:48:44 05/30/2005/30/2023 BASIC METAB OLIC PANEL potassium 3.9 mmol/ L (3.6-5 .2) Not Available [facility] ([facility]ized Electronic Ordering - All Locations) Patient Can Go To The Location Of Their Choice, 05/30/2023 16:48:44 05/30/2005/30/2023 BASIC METAB OLIC PANEL chloride 100 mmol/ L (98-10 7) Not Available [facility] ([facility] Ordering - All Locations) Patient Can Go To The Location Of Their Choice, 05/30/2023 16:48:44 05/30/2005/30/2023 BASIC METAB OLIC PANEL bicarbonate 29 mmol/ L (22-29 ) Not Available [facility] ([facility] Ordering - All Locations) Patient Can Go To The Location Of Their Choice, 05/30/2023 16:48:44 05/30/2005/30/2023 BASIC METAB OLIC PANEL anion gap 11 (4-17) Not Available [facility] ([facility] Ordering - All Locations) Patient Can Go To The Location Of Their Choice, 05/30/2023 16:48:44 05/30/2005/30/2023 BASIC METAB OLIC PANEL calcium 9.2 mg/dL (8.6-1 0.5) Not Available [facility] ([facility]ized [facility] Ordering - All Locations) Patient Can Go To The Location Of Their Choice, 05/30/2023 16:48:44 05/30/2005/30/2023 BASIC METAB OLIC PANEL estimated GFR creatinine 78 mL/mi n/1.7 3_M2 Creat inine based estim ated glome rular filtr ation (eGFR ) in adult s is calcu lated using the Natio nal Kidne y Found ation recom genoveva d 2020 CKD-E PI equat ion. Estim ates GFR from serum creat inine , age and sex. Not Available [facility] (Centralized Electronic Ordering - All Locations) Patient Can Go To The Location Of Their Choice, 05/30/2023 16:48:44 05/30/2005/30/2023 LIPID PANEL cholesterol, total 185 mg/dL (<200) Not Available [facility] ([facility] Order[facility] - All Locations) Patient Can Go To The Location Of Their Choice, 05/30/2023 16:48:45 05/30/2005/30/2023 LIPID PANEL triglyceride 120 mg/dL (<150) Not Available [facility] ([facility] - [facility] Locations) Patient Can Go To The Location Of Their Choice, 05/30/2023 16:48:45 05/30/2005/30/2023 LIPID PANEL HDL chol 64 mg/dL (>39) Not Available [facility] ([facility] Ordering - All Locations) Patient Can Go To The Location Of Their Choice, 05/30/2023 16:48:45 05/30/2005/30/2023 LIPID PANEL LDL cholesterol, calculated 97 mg/dL (0-130 ) Not Available [facility] ([facility] Ordering - All Locations) Patient Can Go To The Location Of Their Choice, 05/30/2023 16:48:45 05/30/20 23 05/30/2023 LIPID PANEL non HDL cholesterol (calc) 121 mg/dL (<160) Not Available [facility] ([facility] Ordering - All Locations) Patient Can Go To The Location Of Their Choice, 05/30/2023 16:48:45 05/30/2005/30/2023 TSH WITH REFLE X TO FT4 TSH 1.13 uIU/m L (0.4-4 .2) Not Available [facility] ([facility] Ordering - All Locations) Patient Can Go To The Location Of Their Choice, 05/30/2023 16:48:46 08/24/2008/24/2024 CMP, serum or plasm a sodium 141 Not Available [address], [address], 08/24/2024 20:56:20 08/24/2008/24/2024 CMP, serum or plasm a potassium 3.8 Not Available [address], [address], 08/24/2024 20:56:20 08/24/20 24 08/24/2024 CMP, serum or plasm a glucose 123 Not Available [address], [address], 08/24/2024 20:56:20 08/24/20 24 08/24/2024 CMP, serum or plasm a BUN 10 Not Available [address], [address], 08/24/2024 20:56:20 08/24/20 24 08/24/2024 CMP, serum or plasm a creatinine 0.70 Not Available [address], [address], 08/24/2024 20:56:20 09/17/20 24 09/17/2024 CBC WITH DIFFE RENTI AL/PL ATELE T WBC 8.2 x10e3 /uL 3.4-10 .8 normal Not Available [facility] ([facility]) [address] [facility], [place], [address], 09/18/2024 06:10:31 09/17/20 24 09/17/2024 CBC WITH DIFFE RENTI AL/PL ATELE T RBC 4.30 x10e6 /uL 3.77-5 .28 normal Not Available [facility] ([facility]) [address] [place], [address], 09/18/2024 06:10:31 09/17/20 24 09/17/2024 CBC WITH DIFFE RENTI AL/PL ATELE T hemoglobin 13.5 g/dL 11.1-1 5.9 normal Not Available [facility] ([facility]) [address] [place], [address], 09/18/2024 06:10:31 09/17/20 24 09/17/2024 CBC WITH DIFFE RENTI AL/PL ATELE T hematocrit 41.7 % 34.0-4 6.6 normal Not Available [facility] ([facility]) [address] [place], [address], 09/18/2024 06:10:31 09/17/20 24 09/17/2024 CBC WITH DIFFE RENTI AL/PL ATELE T MCV 97 fL 79-97 normal Not Available [facility] ([facility]) [address] [place], [address], 09/18/2024 06:10:31 09/17/20 24 09/17/2024 CBC WITH DIFFE RENTI AL/PL ATELE T MCH 31.4 pg 26.6-3 3.0 normal Not Available [facility] ([facility]) [address] [place], [address], 09/18/2024 06:10:31 09/17/20 24 09/17/2024 CBC WITH DIFFE RENTI AL/PL ATELE T MCHC 32.4 g/dL 31.5-3 5.7 normal Not Available [facility] ([facility]) [address] [facility], [place], [address], 09/18/2024 06:10:31 09/17/20 24 09/17/2024 CBC WITH DIFFE RENTI AL/PL ATELE T RDW 12.1 % 11.7-1 5.4 Not Available [facility] ([facility]) [address] [facility], [place], [address], 09/18/2024 06:10:31 09/17/20 24 09/17/2024 CBC WITH DIFFE RENTI AL/PL ATELE T platelets 349 x10e3 /uL 150-45 0 normal Not Available [facility] ([facility]) [address] [facility], [place], [address], 09/18/2024 06:10:31 09/17/20 24 09/17/2024 CBC WITH DIFFE RENTI AL/PL ATELE T neutrophils 59 % not estab. normal Not Available [facility] ([facility]) [address] [facility], [place], [address], 09/18/2024 06:10:31 09/17/20 24 09/17/2024 CBC WITH DIFFE RENTI AL/PL ATELE T lymphs 29 % not estab. normal Not Available [facility] ([facility]) [address] [facility], [place], [address], 09/18/2024 06:10:31 09/17/20 24 09/17/2024 CBC WITH DIFFE RENTI AL/PL ATELE T monocytes 9 % not estab. normal Not Available [facility] ([facility]) [address] [facility], [place], [address], 09/18/2024 06:10:31 09/17/20 24 09/17/2024 CBC WITH DIFFE RENTI AL/PL ATELE T eos 2 % not estab. normal Not Available [facility] ([facility]) [address] [facility], [place], [address], 09/18/2024 06:10:31 09/17/20 24 09/17/2024 CBC WITH DIFFE RENTI AL/PL ATELE T basos 1 % not estab. normal Not Available [facility] ([facility]) [address] [facility], [place], [address], 09/18/2024 06:10:31 09/17/2009/17/2024 CBC WITH DIFFE RENTI AL/PL ATELE T immature cells YEAST TENDER Not Available [facility] ([facility]) [address] [facility], [place], [address], 09/18/2024 06:10:31 09/17/20 24 09/17/2024 CBC WITH DIFFE RENTI AL/PL ATELE T neutrophils (absolute) 4.9 x10e3 /uL 1.4-7. 0 normal Not Available [facility] ([facility]) [address] [place], [address], 09/18/2024 06:10:31 09/17/20 24 09/17/2024 CBC WITH DIFFE RENTI AL/PL ATELE T lymphs (absolute) 2.4 x10e3 /uL 0.7-3. 1 normal Not Available [facility] ([facility]) [address] [place], [address], 09/18/2024 06:10:31 09/17/20 24 09/17/2024 CBC WITH DIFFE RENTI AL/PL ATELE T monocytes(ab solute) 0.7 x10e3 /uL 0.1-0. 9 normal Not Available [facility] ([facility]) [address] [place], [address], 09/18/2024 06:10:31 09/17/20 24 09/17/2024 CBC WITH DIFFE RENTI AL/PL ATELE T eos (absolute) 0.2 x10e3 /uL 0.0-0. 4 normal Not Available [facility] ([facility]) [address] [facility], [place], [address], 09/18/2024 06:10:31 09/17/20 24 09/17/2024 CBC WITH DIFFE RENTI AL/PL ATELE T baso (absolute) 0.1 x10e3 /uL 0.0-0. 2 normal Not Available [facility] ([facility]) [address] [facility], [place], [address], 09/18/2024 06:10:31 09/17/20 24 09/17/2024 CBC WITH DIFFE RENTI AL/PL ATELE T immature granulocytes 0 % not estab. Not Available [facility] ([facility]) [address] [facility], [place], [address], 09/18/2024 06:10:31 09/17/20 24 09/17/2024 CBC WITH DIFFE RENTI AL/PL ATELE T immature grans (abs) 0.0 x10e3 /uL 0.0-0. 1 Not Available [facility] ([facility]) [address] [facility], [place], [address], 09/18/2024 06:10:31 09/17/20 24 09/17/2024 CBC WITH DIFFE RENTI AL/PL ATELE T NRBC YEAST TENDER Not Available [facility] ([facility]) [address] [facility], [place], [address], 09/18/2024 06:10:31 09/17/20 24 09/17/2024 CBC WITH DIFFE RENTI AL/PL ATELE T hematology comments: YEAST TENDER Not Available [facility] ([facility]) [address] [facility], [place], [address], 09/18/2024 06:10:31 09/17/20 24 09/18/2024 LIPID PANEL cholesterol, total 180 mg/dL 100-19 9 normal Not Available [facility] ([facility]) [address] [facility], [place], [address], 09/18/2024 06:10:32 09/17/20 24 09/18/2024 LIPID PANEL triglyceride s 100 mg/dL 0-149 normal Not Available [facility] ([facility]) [address] [facility], [place], [address], 09/18/2024 06:10:32 09/17/20 24 09/18/2024 LIPID PANEL HDL cholesterol 61 mg/dL >39 normal Not Available [facility] ([facility]) [address] [facility], [place], [address], 09/18/2024 06:10:32 09/17/20 24 09/18/2024 LIPID PANEL VLDL cholesterol roddy 18 mg/dL 5-40 Not Available [facility] ([facility]) [address] [facility], [place], [address], 09/18/2024 06:10:32 09/17/20 24 09/18/2024 LIPID PANEL LDL chol calc ([facility]) 101 mg/dL 0-99 above high normal Not Available [facility] ([facility]) [address] [facility], [place], [address], 09/18/2024 06:10:32 09/17/20 24 09/18/2024 LIPID PANEL LDL calc comment: YEAST TENDER Not Available [facility] ([facility]) [address] [facility], [place], [address], 09/18/2024 06:10:32 09/17/20 24 09/18/2024 TSH RFX ON ABNOR MAL TO FREE T4 TSH 1.300 uIU/m L 0.450- 4.500 normal Not Available [facility] ([facility]) [address] [place], [address], 09/18/2024 06:10:33 09/17/20 24 09/18/2024 ALT (SGPT ) ALT (SGPT) 20 IU/L 0-32 normal Not Available [facility] ([facility]) [address] [facility], [place], [address], 09/18/2024 06:10:34 08/21/20 22 08/21/2022 MAMMO , scree power, digit al, bilat eral PROCED URE: MM Digita l Mammo Screen ing INDICA TION: Screen ing. No known palpab le abnorm alitie s. Benign left breast biopsy in 2004. There is a family histor y of breast cancer in the mikey estes's sister at age 52. COMPAR PAU: Prior mammog renae, most recent ly 021. TECHNI QUE: Full-f ield digita l CC and MLO 3D tomosy nthesi s images of both breast s were acquir ed. Comput er-aid ed detect ion (CAD) was utiliz ed in the interp retati on of this study. DENSIT Y: The breast tissue is hetero geneou sly dense, which may obscur e masses . FINDIN GS: Marker clip is seen in the upper outer left breast . There is a 7 mm well-c ircums cribed ovoid mass in the left breast at about the 2:00-3 :00 axis, 3 cm from the nipple . Target ed ultras ound is recomm ended for furthe r assess ment. No suspic ious findin gs are seen in the right breast . IMPRES VASILE: Additi onal imagin g recomm ended. We will recall the mikey estes. RECOMM ENDATI ON: Left breast ultras ound BI-RAD S: 0 (Incom plete - Need Additi onal Imagin g Evalua tion. Lay letter mailed to mikey estes WSN: [id number] Orderi ng Physic elliot: Selvin amos MD, Shiloh Marcos Dictat ed By: Zaria Aaron MD Dictat ed Date/T shelby: 9:50 am Review ed By: Zaria Aaron MD Signed By: Zaria Aaron MD Signed Date/T shelby: 9:50 am Transc ribed By: LEEROY Transc riptio n Date/T shelby: 9:45 am Birads : Patien t Class: Outpat ient [id number] [facility] ([facility]) [address], [place], [address], 08/21/2022 10:07:04 08/29/2008/29/2022 US, breas t, limit ed PROCED URE: US Breast Left Limite d INDICA TION: Left breast mass COMPAR PAU: Screen ing mammog gila 020 TECHNI QUE: Target ed high-r esolut ion ultras ound of the 3:00 left breast 3 cm from the nipple was perfor med. FINDIN GS: There is oval circum scribe d hypoec hoic probab ly cystic lesion measur ing 4 x 6 mm. In the left breast at 3:00 positi on, 2 cm from the nipple , likely correl ating to the mammog raphic abnorm ality No abnorm al vascul arity on color Dopple r. The mammog raphic findin g demons trates a well-c ircums cribed partia lly lucent mass. This probab ly repres ents an oil cyst or a compli cated cyst, howeve r as a precau tion, 6 months follow -up with mammog gila and ultras ound is recomm ended. IMPRES VASILE: Probab ly benign probab ly oil cyst or a compli cated cyst in the left breast . 6 months follow -up with mammog gila and ultras ound is recomm ended to confir m benign ity. RECOMM ENDATI ON: Follow -up diagno stic 3D left breast tomosy nthesi s and ultras ound in 6 months BI-RAD S: 3 (Proba lorena Benign ) I have person ally review ed the images and I agree with this report . WSN: [id number] Orderi ng Physic elliot: Selvin amos MD, Shiloh Marcos Dictat ed By: Karla delgado MD, Tyrel Isaacs Dictat ed Date/T shelby: 2:18 pm Review ed By: Isabel Christian MD Signed By: Isabel Christian MD Signed Date/T shelby: 2:23 pm Transc ribed By: LEEROY Transc ribed Date/T shelby: 1:52 pm Patien t Class: Outpat ient lgladingdiloren z [facility] (Outpt Imaging) [address], [place], [address], 08/29/2022 14:41:59 11/20/19 23 11/20/2022 LDCT, chest , for lung cance r scree power CHEST CT LOW DOSE SCREEN ING INDICA TION: Screen ing for lung cancer . Histor y of antonietta iverson Visit type: Annual Screen ing COMPAR PAU: 2020 TECHNI QUE: Low-do se helica l CT of the chest withou t IV contra st (Adult Lung Cancer Screen ing) protoc ol was perfor med. Sagitt al and wang l reform ats were obtain ed. Weight -based protoc ol using automa tic tube modula tion was used to optimi ze exposu re parame ters. RADIAT ION DOSE PARAME TERS: CTDIvo l Body: 1.98 mGy, DLP Body: 69 mGy*cm . FINDIN GS: LUNG NODULE S: RIGHT LUN mm nodule upper lobe image 25 series 3 unchan ged. No new lung nodule . LEFT LUN mm nodule [employer] iorly in the upper lobe image 17 series 3 unchan ged. Calcif ied granul keila. 4 mm nodule lingul ar tip. Unchan ged. No new lung nodule . OTHER FINDIN GS: Trache a and Mainst em Bronch i: Normal . Lungs and Pleura : The lungs are clear. No pneumo thorax or pleura l effusi on. Medias tinum and Lymph nodes: No large lymph nodes. Normal cardia c size. No perica rdial effusi on. Wang ry artery calcif icatio n: Mild Chest wall and Soft tissue s: Normal . Bones: No focal abnorm ality. Visual ized Upper Abdome n: No worris ome incide ntal abnorm ality. IMPRES VASILE: PULMON CITLALI NODULE S: 1. There are a few small stable lung nodule s with the larger measur ing 4 mm. 2. There is no new lung nodule . LUNG-R ADS CATEGO RY 2. Contin ue low-do se screen ing CT 12 months OTHER FINDIN GS: 1. No worris ome incide ntal abnorm ality. WSN: [id number] Orderi ng Physic elliot: Gita pineda YEAST TENDER, Farhana Ruffin Dictat ed By: Patrice Valle MD Dictat ed Date/T shelby: 9:44 am Review ed By: Patrice Valle MD Signed By: Patrice Valle MD Signed Date/T shelby: 9:44 am Transc ribed By: LEEROY Transc ribed Date/T shelby: 9:30 am Patien t Class[facility] ([facility]) [address] [facility], [place], [address], 11/27/2022 13:11:00 03/28/20 23 03/28/2023 US, caroiln t, limit ed PROCED URE: MM Digita l Mammo Unilat Left, US Breast Left Limite d INDICA TION: Six-mo nth follow -up for probab ly benign cortic ated cyst seen in the left breast on prior study. COMPAR PAU: 022 and ultras ound left breast dated 2021 TECHNI QUE: Digita l diagno stic mammog gila consis ting of full field digita l mammog raphic views of the left breast in CC and MLO projec tions were obtain ed. In additi on, target ed high-r esolut ion ultras ound of left breast 3:00, 2 cm from the nipple was obtain ed. FINDIN GS: There is margin al interv al increa se in size of an oval well-c ircums cribed mass in the latera l mid to anteri or left breast , approx imatel y 2 cm from the nipple , now measur ing up to 7 mm, previo usly measur ing up to 6 mm. Sonogr aphic evalua tion of the left breast 3:00, 2 cm from the nipple demons trates a minima lly compli cated cyst measur ing 7 x 4 x 5 mm, versus previo usly measur ing 6 x 4 x 4 mm. This is probab ly benign . As a precau tion, an additi onal 6 month follow -up with left breast tomogr aphic images and target ed ultras ound recomm ended when the mikey t return s for her annual screen ing mammog gila. IMPRES VASILE: Probab ly benign compli cated cyst in the left breast at 3:00, 2 cm from the nipple , corres pondin g to the mammog raphic findin g of an oval mass RECOMM ENDATI ON: Follow -up diagno stic 3D left breast tomosy nthesi s and ultras ound in 6 months BI-RAD S: 3 (Proba lorena Benign ) Lay letter mailed to mikey estes WSN: [id number] Orderi ng Physic elliot: Shiloh Genao Dictat ed By: Sarah Ledezma MD Dictat ed Date/T shelby: 11:05 a Review ed By: Sarah Ledezma MD Signed By: Sarah Ledezma MD Signed Date/T shelby: 11:05 am Transc ribed By: LEEROY Transc ribed Date/T shelby: 11:03 am Mikey estes Class: Outpat ient [facility]adingdil[facility] (Outpt Imaging) [address] [place], [address], 03/28/2023 11:15:01 03/28/20 23 03/28/2023 mm digit al mammo unila t left PROCED URE: MM Digita l Mammo Unilat Left, US Breast Left Limite d INDICA TION: Six-mo nth follow -up for probab ly benign cortic ated cyst seen in the left breast on prior study. COMPAR PAU: 022 and ultras ound left breast dated 2021 TECHNI QUE: Digita l diagno stic mammog gila consis ting of full field digita l mammog raphic views of the left breast in CC and MLO projec tions were obtain ed. In additi on, target ed high-r esolut ion ultras ound of left breast 3:00, 2 cm from the nipple was obtain ed. FINDIN GS: There is margin al interv al increa se in size of an oval well-c ircums cribed mass in the latera l mid to anteri or left breast , approx imatel y 2 cm from the nipple , now measur ing up to 7 mm, previo usly measur ing up to 6 mm. Sonogr aphic evalua tion of the left breast 3:00, 2 cm from the nipple demons trates a minima lly compli cated cyst measur ing 7 x 4 x 5 mm, versus previo usly measur ing 6 x 4 x 4 mm. This is probab ly benign . As a precau tion, an additi onal 6 month follow -up with left breast tomogr aphic images and target ed ultras ound recomm ended when the mikey t return s for her annual screen ing mammog gila. IMPRES VASILE: Probab ly benign compli cated cyst in the left breast at 3:00, 2 cm from the nipple , corres pondin g to the mammog raphic findin g of an oval mass RECOMM ENDATI ON: Follow -up diagno stic 3D left breast tomosy nthesi s and ultras ound in 6 months BI-RAD S: 3 (Proba lorena Benign ) Lay letter mailed to mikey estes WSN: [id number] Orderi ng Physic elliot: Shiloh Genao Dictat ed By: Sarah Ledezma MD Dictat ed Date/T shelby: 11:05 am Review ed By: Sarah Ledezma MD Signed By: Sarah Ledezma MD Signed Date/T shelby: 11:05 am Transc ribed By: LEEROY Transc riptio n Date/T shelby: 11:03 am Birads : Mikey estes Class: Outpat ient lgladingdilorfarhat gu [facility] (Outpt Imaging) [address] , [place], [address], 03/28/2023 11:15:01 10/15/20 10/15/2023 US, breas t, limit ed PROCED URE: MM Digita l Mammo Bilate ral, US Breast Left Limite d INDICA TION: Six-mo nth follow -up diagno stic left mammog gila and ultras ound for a probab le compli cated cyst and screen ing of the right breast . No known palpab le abnorm alitie s. Mammog dashawn: COMPAR PAU: Multip le priors , most recent ly 023 on the left and 022 on the right. TECHNI QUE: Full-f ield digita l CC and MLO 3D tomosy nthesi s images of both breast s were acquir ed. Comput er-aid ed detect ion (CAD) was utiliz ed in the interp retati on of this study. DENSIT Y: The breast tissue is hetero geneou sly dense, which may obscur e masses . FINDIN GS: No suspic ious masses , suspic ious microc alcifi cation s, or areas of jamison ectura l distor tion are seen in either breast to sugges t malign kadi. No apprec iable change in the ovoid well-c ircums cribed mass near the 3:00 positi on of the left breast on the mammog gila. Biopsy marker is presen t more [employer] iorly in the upper outer left breast . ULTRAS OUND: Target ed ultras ound to the 3:00 positi on of the breast , 2 cm from nipple is perfor med and compar ed with previo us examin ations and 2021. This again demons trates an ovoid well-c ircums cribed wider than taller minima lly lobula bassam hypoec hoic mass with very low level echoes within it, no internal grinder al vascul arity and which enhanc es sound. Its measur ements are simila r, 0.7 x 0.5 x 0.5 cm. This is felt compat ible with a mildly compli cated cyst. IMPRES VASILE: No mammog raphic or ultras ound eviden ce for malign kadi. Stable benign breast lesion . Recomm end annual screen ing mammog dashawn. BI-RAD S: 2 (Benig n) Lay letter mailed to mikey GREGORION: [id number] Orderi ng Physic elliot: Vick Case ie Dictat ed By: Faby Hi MD Dictat ed Date/T shelby: 9:11 am Review ed By: Faby Hi MD Signed By: Faby Hi MD Signed Date/T shelby: 9:11 am Transc ribed By: LEEROY Transc ribed Date/T shelby: 8:52 am Patifarhat estes Class: Outpat ient [facility] (Outpt Imaging) [address] , [place], [address], 10/15/2023 09:30:24 10/15/2010/15/2023 mm digit al mammo bilat eral PROCED URE: MM Digita l Mammo Bilate ral, US Breast Left Limite d INDICA TION: Six-mo nth follow -up diagno stic left mammog gila and ultras ound for a probab le compli cated cyst and screen ing of the right breast . No known palpab le abnorm alitie s. Mammog dashawn: COMPAR PAU: Multip le priors , most recent ly 023 on the left and 022 on the right. TECHNI QUE: Full-f ield digita l CC and MLO 3D tomosy nthesi s images of both breast s were acquir ed. Comput er-aid ed detect ion (CAD) was utiliz ed in the interp retati on of this study. DENSIT Y: The breast tissue is hetero geneou sly dense, which may obscur e masses . FINDIN GS: No suspic ious masses , suspic ious microc alcifi cation s, or areas of jamison ectura l distor tion are seen in either breast to sugges t malign kadi. No apprec iable change in the ovoid well-c ircums cribed mass near the 3:00 positi on of the left breast on the mammog gila. Biopsy marker is presen t more [employer] iorly in the upper outer left breast . ULTRAS OUND: Target ed ultras ound to the 3:00 positi on of the breast , 2 cm from nipple is perfor med and compar ed with previo us examin ations 023 and 2021. This again demons trates an ovoid well-c ircums cribed wider than taller minima lly lobula bassam hypoec hoic mass with very low level echoes within it, no internal grinder al vascul arity and which enhanc es sound. Its measur ements are simila r, 0.7 x 0.5 x 0.5 cm. This is felt compat ible with a mildly compli cated cyst. IMPRES VASILE: No mammog raphic or ultras ound eviden ce for malign kadi. Stable benign breast lesion . Recomm end annual screen ing mammog dashawn. BI-RAD S: 2 (Abraham peralta) Lay letter mailed to mikey estes WSN: [id number] Orderi ng Physic elliot: Vick Case Dictat ed By: Jerilyn peralta MD, Faby correia H Dictat ed Date/T shelby: 9:11 am Review ed By: Jerilyn peralta MD, Faby correia H Signed By: Faby Hi MD H Signed Date/T shelby: 9:11 am Transc ribed By: LEEROY Transc riptio n Date/T shelby: 8:52 am Birads : Mikey estes Class: Outpat ient [facility] (Outpt Imaging) [address], [place], [address], 10/15/2023 09:29:42 10/15/2010/15/2023 MAMMO , scree power, digit al, bilat eral No observ ation record ed. [email or web address] [facility] [address], [place], [address], 10/15/2023 09:30:38 10/15/2010/15/2023 DEXA, axial skele ton Name:Priti estes ID: [id number] Age:72 years Sex:Fe male Ethnic ity:Wh ite Date of : 1949 Reason : Postme nopaus al Referr ing Provid er:Bon castro Study: Dexa Bone Densit y (Axial ) Bone Densit y: Region BMD T-Scor e Z-Scor e Classi ficati on AP Spine 0.847 -1.8 0.3 Osteop enia TOTAL HIP 0.650 -2.4 -0.8 Osteop enia FEM NECK 0.553 -2.7 -0.8 Osteop orosis 10-yea r Fractu re Risk: Fractu re Risk Not Report ed: FRAX not report ed becaus e: Some T-scor e for Spine Total or Hip Total or Femora l Neck at or below -2.5 Impres vasile: The patien t has osteop orosis as determ ined by WHO criter ia. WSN: [id number] Orderi ng Physic elliot: Vick Case Dictat ed By: Akin Hurley rd, Jr, MD Dictat ed Date/T shelby: 3:22 pm Review ed By: Akin Hurley rd, Jr, MD Signed By: Akin Hurley rd, Jr, MD Signed Date/T shelby: 3:22 pm Transc ribed By: LEEROY Transc ribed Date/T shelby: 3:21 pm Patien t Class: Outpat ient [facility] (Outpt Imaging) [address] [place], [address], 10/15/2023 20:24:25 10/15/20 23 10/15/2023 bone densi ty No observ ation record ed. [facility] [address], [place], [address], 10/15/2023 16:49:10 11/26/19 24 11/26/2023 CT chest ldct lung progr am CT Chest LDCT Lung Progra m Reason : Other: ; LDCT LUNG CANCER SCREEN ING PROGRA M, J CARLOS T SMOKER , 44 PACK YEAR HX; Clinic al Questi on(s): Other: ; Specia l Instru ctions : BOOK AT [address] [facility], [place], [place] BOOK AFTER [address] IN THE LAST 12 MONTHS NO LUNG CA OR SIGNS AND SYMPTO MS OF LUNG CA Visit type: Annual Screen ing TECHNI QUE: Low-do se helica l CT of the chest withou t IV contra st (Adult Lung Cancer Screen ing) protoc ol was perfor med. Wang l reform ats were obtain ed. Weight -based protoc ol using automa tic tube modula tion was used to optimi ze exposu re parame ters. COMPAR PAU: 11/20/19 23 FINDIN GS: LUNG NODULE S (measu red on thin axial series 4): RIGHT lung: No new pulmon citlali nodule s. Multip le pulmon citlali nodule s, which are unchan ged, and includ e areas of nodula rity which are associ ated with bronch ial wall thicke power and are cluste red, for exampl e in the right middle lobe at series 4 image 201 and image 220. Unchan ged 2 mm nodule in the right upper lung series 4 image 169. LEFT lung: No new pulmon citlali nodule s. Unchan ged nodule s in the lingul a, measur ing up to 4 mm. There are calcif ied granul omas includ ing in the left upper lobe series 4 image 50 and superi or segmen t of the left lower lobe and image 91, and also at image 136 and 235. OTHER FINDIN GS: Associate Professor Of Violin view findin gs, lines and tubes: None. Trache a and airway s: Patent withou t eviden ce of trache al or endobr onchia l lesion . Lungs and pleura : Clear lungs. Minima l subple ural scarri ng at the apices and upper lungs, unchan ged. Mild linear atelec tasis in the left lung base. No effusi on or pneumo thorax . Medias tinum and pedro: No mass or hemato ma. No medias tinal or hilar lympha denopa thy. No esopha geal abnorm ality. Partia lly imaged thyroi d is unrema rkable . Heart: Heart is normal in size. No perica rdial effusi on. Mild wang ry artery calcif icatio n. Aorta: Mild vascul ar calcif icatio n but no aneury sm. Pulmon citlali arteri es: Normal calibe r. Chest wall soft tissue s: No axilla ry adenop athy. No acute abnorm ality. Diaphr agm: Intact . Upper abdome n: No signif icant abnorm ality. Bones: No acute abnorm ality. IMPRES VASILE: 1. LungRa d Catego ry: 2 Benign Appear ance or Behavi or. Nodule s with a very low likeli mosley of becomi ng a clinic ally active cancer due to size or lack of growth . Contin ue annual screen ing with LDCT in 12 months . 2. No signif icant additi onal findin gs requir ing furthe r evalua tion. Lung-R AD Catego ry Modifi er: None. Catego rizati on based on Lung-R ADS 2021 criter ia. https: //[email or web address] /Lung- RADS/L toña-RA - 2.pdf WSN: [id number] Orderi ng Physic elliot: Vick Case ie Dictat ed By: Michelle Sunshine MD Dictat ed Date/T shelby: 12:00 p Review ed By: Michelle Sunshine MD Signed By: Michelle Sunshine MD Signed Date/T shelby: 12:00 pm Transc ribed By: LEEROY Transc ribed Date/T shelby: 11:47 am Patien t Class: Outpat ient [facility] (Outpt Imaging) [address] [place], [address], 12/01/2023 10:54:53 11/26/19 24 11/26/2023 LDCT, chest , for lung cance r scree power No observ ation record ed. [facility] [address] [place] [address], [address], 11/30/2023 15:29:32 03/05/20 24 06/12/2023 compl ete PFT* No observ ation record ed. [facility] [address] [place], [address], 03/05/2024 15:42:58 10/26/20 24 10/26/2024 MAMMO , jiee power, bilat eral No observ ation record ed. [email or web address] [facility] [address], [place], [address], 10/27/2024 09:03:04 10/26/20 24 10/26/2024 MAMMO , scree power, digit al, bilat eral PROCED URE: MM Digita l Mammo Screen ing INDICA TION: Screen ing for breast cancer . No known palpab le abnorm alitie s. COMPAR PAU: Multip le prior studie s dating back to 022. TECHNI QUE: Full-f ield digita l CC and MLO 3D tomosy nthesi s images of both breast s were acquir ed. Comput er-aid ed detect ion (CAD) was utiliz ed in the interp retati on of this study. DENSIT Y: The breast tissue is hetero geneou sly dense, which may obscur e small masses . FINDIN GS: No suspic ious masses , suspic ious microc alcifi cation s, or areas of jamison ectura l distor tion are seen in either breast to sugges t malign kadi. Severa l small circum scribe d masses in the left breast , unchan ged. Biopsy clip in the left breast . IMPRES VASILE: No mammog raphic eviden ce of malign kadi. RECOMM ENDATI ON: Annual mammog raphic screen ing BI-RAD S: 2 (Benig n) Lay letter mailed to mikey t WSN: [id number] Orderi ng Physic elliot: Vick Case Dictat ed By: Alin Rider MD Dictjudith ed Date/T shelby: 4:51 pm Review ed By: Alin Rider MD Signed By: Alin Rider MD Signed Date/T shelby: 4:51 pm Transc ribed By: CSB Transc riptio n Date/T shelby: 4:48 pm Birads : Patien t Class: Outpat ient [email or web address] [facility] (Outpt Imaging) [address], [place], [address], 10/27/2024 09:02:05 12/01/19 25 12/01/2024 CT chest ldct lung progr am CT Chest LDCT Lung Progra m Reason : Other: ; LDCT LUNG CANCER SCREEN ING PROGRA M, CURREN T SMOKER , 45 PACK YEAR HX; Clinic al Questi on(s): Other: ; Specia l Instru ctions : BOOK AT [address] [facility], [facility], [place] BOOK AFTER [address] IN THE LAST 12 MONTHS NO LUNG CA OR SIGNS AND SYMPTO MS OF LUNG CA Visit type: Annual Screen ing TECHNI QUE: Low-do se helica l CT of the chest withou t IV contra st (Adult Lung Cancer Screen ing) protoc ol was perfor med. Wang l reform ats were obtain ed. Weight -based protoc ol using automa tic tube modula tion was used to optimi ze exposu re parame ters. CTDIvo l Body: 1.98 mGy, DLP Body: 69 mGy*cm . COMPAR PAU: 024 FINDIN GS: LUNG NODULE S (measu red on thin axial series 4): RIGHT lung: No signif icant change in mucous pluggi ng and nodula rity surrou nding the bronch ial gutierrez, simila r to prior, for exampl e in the right middle lobe image 203. LEFT lung: No signif icant change in consol idatio n and nodula rity surrou nding the bronch ial gutierrez, simila r to prior, for exampl e in the lingul a image 214. Scatte red calcif ied granul omas. OTHER FINDIN GS: Associate Professor Of Violin view findin gs, lines and tubes: None. Trache a and airway s: Patent withou t eviden ce of trache al or endobr onchia l lesion . Lungs and pleura : Mild bibasi lar atelec tasis. No effusi on or pneumo thorax . Medias tinum and pedro: No mass or hemato ma. No medias tinal or hilar lympha denopa thy. No esopha geal abnorm ality. Heart: Heart is normal in size. No perica rdial effusi on. Mild wang ry artery calcif icatio n. Aorta: Mild vascul ar calcif icatio n but no aneury sm. Pulmon citlali arteri es: Normal calibe r. Chest wall soft tissue s: No acute abnorm ality. Diaphr agm: Intact . Upper abdome n: No signif icant abnorm ality. Bones: No acute abnorm ality. Multil evel degene rative change s of the visual ized spine. IMPRES VASILE: 1. LungRa d Catego ry: 2 Benign Appear ance or Behavi or. Nodule s with a very low likeli mosley of becomi ng a clinic ally active cancer due to size or lack of growth . Contin ue annual screen ing with LDCT in 12 months . 2. No signif icant additi onal findin gs requir ing furthe r evalua tion. Lung-R AD Catego ry Modifi er: None. Catego rizati on based on Lung-R ADS 2021 criter ia. https: //[email or web address]. [email or web address] /Lung- RADS/L toña-RA DS-202 2.pdf WSN: [id number] Orderi ng Physic elliot: Vick Case ie Dictat ed By: Eleni Russell MD Dictat ed Date/T shelby: 4:53 pm Review ed By: Eleni Russell MD Signed By: Eleni Russell MD Signed Date/T shelby: 4:53 pm Transc ribed By: LEEROY Transc ribed Date/T shelby: 3:13 pm Patien t Class: Outpat ient [facility] (Outpt Imaging) [address] [facility], [place], [address], 12/02/2024 18:50:22 12/08/19 25 12/01/2024 LDCT, chest , for lung cance r scree power No observ ation record ed. [facility] [address] [facility], [place], [address], 12/08/2024 16:10:48 Result Notes None recorded. Problems Name Problem SNOMED Code Status Onset Date Resolution Date Notes Provider Name and Address Organization Details Recorded Time Breast lump 62324039 Completed 02/22/2016 Shiloh majano [facility] 6 10:23:48 Mammogra phy abnormal [id number] Completed 201302/22/2016 RECORDED 04/18/20 14 8:34AM BY CARRIE SANTOS, OFFICE VISIT Shiloh majano [facility] 6 10:23:48 Screenin g for malignan t neoplasm of breast Completed 200706/07/2014 RECORDED 08/24/20 08 1:56PM BY MADELEINE REEVES MA, ANNOTATI ON/ADDEN DUM SONI Novak [facility] 7 15:31:46 Tobacco dependen ce syndrome [id number] Completed 201006/07/2014 IMPRESSI ON: TRIEDN TO QUIT BUT ALOT OF NAUSEA ON CHANTIX. ; RECORDED 03/27/20 11 3:59PM BY MADELEINE REEVES MA, ANNOTATI ON/ADDEN DUM SONI Nov[facility] 7 15:31:54 Essentia l hyperten vasile [id number] Completed 201206/07/2014 RECORDED 12/15/19 13 1:52AM BY MADELEINE REEVES MA, ANNOTATI ON/ADDEN DUM Shiloh majano [facility] 6 10:23:48 Influenz a vaccine needed [id number] 06 Completed 200906/07/2014 RECORDED 03/26/20 10 11:11AM BY SONI MARMOLEJO, HISTORIC AL SUMMARY Shiloh majano [facility] 6 10:23:48 Influenz a vaccine needed [id number] 06 Completed 201302/22/2016 RECORDED 12/01/19 14 3:54PM BY CARRIE SANTOS, OFFICE VISIT Shiloh majano [facility] 6 10:23:48 Adult health examinat ion Completed 201302/22/2016 IMPRESSI ON: PAP, MAMMO AND COLONOSC OPY ARE UTD, PT KNOWS SHE NEEDS TO QUIT SMOKING. ; RECORDED 12/02/19 14 1:11PM BY SHILOH López MD, OFFICE VISIT Shiloh majano [facility] 6 10:23:48 General examinat ion of patient Completed 200706/07/2014 IMPRESSI ON: PAP DONE TODAY,PT WILL SET UP COLONSOC OOPY, HAS BEEN HESITANT TO DO; RECORDED 08/24/20 08 1:56PM BY MADELEINE REEVES MA, ANNOTATI ON/ADDEN DUM Shiloh majano [facility] 6 10:23:48 Well child [id number] Completed 201106/07/2014 RECORDED 10/15/20 12 3:35PM BY ERINN NOVAK ON/ADDEN DUM Shiloh majano [facility] 6 10:23:48 Blood in urine [id number] Completed 201302/22/2016 RECORDED 04/18/20 14 8:34AM BY CARRIE SANTOS, OFFICE VISIT Shiloh majano [facility] 6 10:23:48 Blood in urine [id number] Completed 200706/07/2014 IMPRESSI ON: LONG HX WORKUP, LAST SAW DR RAMIREZ 2003, HAD WANTED A RENAL ULTRASOU ND AND POSSIBLE VISIT WITH NEPHROLO GIST, WILL CHECK URINE AND US AND GO FROM THERE; RECORDED 08/24/20 08 1:56PM BY MADELEINE REEVES MA, ANNOTATI ON/ADDEN DUM Shiloh majano [facility] 6 10:23:48 Pure hypercho lesterol emia [id number] Completed 201309/30/2016 IMPRESSI ON: ON MEDS, CHECK FASTING AND PT TO CHECK LIVER TESTS Q 4 MONTHS WITH A STANDING ORDER; RECORDED 04/18/20 14 9:18AM BY SHILOH López MD, OFFICE VISIT Shiloh majano [facility] 6 15:38:38 [facility] hyperten vasile 30979066 Active 2013 IMPRESSI ON: WELL CONTROLL ED CONTINUE MEDS, CHECK K DUE TO HCTZ; RECORDED 04/18/20 14 9:17AM BY SHILOH López MD, OFFICE VISIT SONI Pickett [facility] 4 13:54:45 Malaise and fatigue [id number] Completed 200706/07/2014 RECORDED 08/24/20 08 1:56PM BY MADELEINE REEVES MA, ANNOTATI ON/ADDEN DUM Shiloh majano [facility] 6 10:23:48 Screenin g for malignan t neoplasm of breast Completed 201303/24/2017 RECORDED 04/18/20 14 8:34AM BY CARRIE SANTOS, OFFICE VISIT SONI Novak [facility] 7 15:31:46 Administ ration of bacteria l and viral vaccine Completed 200706/07/2014 RECORDED 02/17/20 08 3:31PM BY SHILOH López MD, OFFICE VISIT Shiloh majano [facility] 6 10:23:48 Adult health examinat ion Completed 201106/07/2014 IMPRESSI ON: PAP TODAY, SET UP MAMMO, INCREASE EXERCISE , COLONSOC PY UTD 2008, REPEAT IN 10 YEARS.; RECORDED 10/15/20 12 3:35PM BY ERINN NOVAK ON/ADDEN DUM Shilohpriti orellana null, [facility] 6 10:23:48 Screenin g for malignan t neoplasm of colon Completed 200806/07/2014 RECORDED 09/18/20 09 8:11AM BY MADELEINE REEVES MA, CHIOMAATI ON/ADDEN DUM Shiloh GladingKaroline orellana null, [facility] 6 10:23:48 Tinnitus 33317436 Active 2013 IMPRESSI ON: NEW PROBLEM TO EXAMINER , PT TO SET UP APPT, UNDERSTA NDS IT IS IMPORTAN T; RECORDED 04/18/20 14 8:34AM BY CARRIE SANTOS, OFFICE VISIT Sybil Howe null, [facility] 0 16:02:27 Tobacco dependen ce syndrome [id number] Completed 201303/24/2017 IMPRESSI ON: URGED PT TO QUIT; RECORDED 04/18/20 14 8:45AM BY ERINN NOVAK ON/ADDEN DUM Carrie Santos MA null, [facility] 7 15:31:54 Abnormal weight loss 496930028 Completed 201206/07/2014 RECORDED 02/09/20 13 3:40PM BY ERINN FRANCO ON/ADDEN DUM Shiloh orellana null, [facility] 6 10:23:48 Screenin g for malignan t neoplasm of breast Completed 200706/27/2014 RECORDED 08/24/20 08 1:56PM BY MADELEINE REEVES MA, CHIOMAATI ON/ADDEN DUM Carrie Santos MA null, [facility] 7 15:31:46 Tobacco dependen ce syndrome [id number] Completed 201006/27/2014 IMPRESSI ON: TRIEDN TO QUIT BUT ALOT OF NAUSEA ON CHANTIX. ; RECORDED 03/27/20 11 3:59PM BY MADELEINEMANSOOR REEVES MA, ANNOTATI ON/ADDEN DUM Carrie Santos MA null, [facility] 7 15:31:54 Paola loyd vasile 57189161 Completed 201206/27/2014 RECORDED 12/15/19 13 1:52AM BY MADELEINE REEVES MA, ANNOTATI ON/ADDEN DUM Shiloh Shanks reyna null, [facility] 6 10:23:48 Influenz a vaccine needed [id number] 06 Completed 200906/27/2014 RECORDED 03/26/20 10 11:11AM BY SONI MARMOLEJO, HISTORIC AL SUMMARY Shiloh Dimitris reyna gretel [facility] 6 10:23:48 Tobacco user [id number] Completed 201302/22/2016 IMPRESSI ON: STILL ON NICOTINE BUT WILL WEAN DOWN.; RECORDED 04/18/20 14 9:18AM BY SHILOH López MD, OFFICE VISIT Shiloh majano [facility] 6 10:23:48 History of clinical finding in subject [id number] Completed 201302/22/2016 IMPRESSI ON: STILL ON NICOTINE BUT WILL WEAN DOWN.; RECORDED 04/18/20 14 9:18AM BY SHILOH López MD, OFFICE VISIT Shiloh majano [facility] 6 10:23:48 Adult health examinat ion Completed 201306/27/2014 IMPRESSI ON: PAP, MAMMO AND COLONOSC OPY ARE UTD, PT KNOWS SHE NEEDS TO QUIT SMOKING. ; RECORDED 04/18/20 14 8:33AM BY ERINN NOVAK ON/ADDEN DUM Shiloh majano [facility] 6 10:23:48 General examinat ion of patient Completed 200706/27/2014 IMPRESSI ON: PAP DONE TODAY,PT WILL SET UP COLONSOC OOPY, HAS BEEN HESITANT TO DO; RECORDED 08/24/20 08 1:56PM BY MADELEINE REEVES MA, ANNOTATI ON/ADDEN DUM Shiloh Glading-Dalila gambinoo gretel, [facility] 6 10:23:48 Well child [id number] Completed 201106/27/2014 RECORDED 10/15/20 12 3:35PM BY CARRIE SANTOS, CHIOMAATI ON/ADDEN DUM Shiloh GladingKaroline galvanenzo gretel, [facility] 6 10:23:48 Malaise and fatigue 136735303 Completed 200706/27/2014 RECORDED 08/24/20 08 1:56PM BY MADELEINE REEVES MA, ANNOTATI ON/ADDEN DUM Shiloh Glading-Dalila gambinoo gretel, [facility] 6 10:23:48 Administ ration of bacteria l and viral vaccine Completed 200706/27/2014 RECORDED 02/17/20 08 3:31PM BY SHILOH López MD, OFFICE VISIT Shiloh majano [facility] 6 10:23:48 Screenin g for malignan t neoplasm of colon Completed 200806/27/2014 RECORDED 09/18/20 09 8:11AM BY MADELEINE REEVES MA, ANNOTATI ON/ADDEN DUM Shiloh GladingKaroline galvanenzo gretel [facility] 6 10:23:48 Abnormal weight loss 529001693 Completed 201206/27/2014 RECORDED 02/09/20 13 3:40PM BY CHIOMA FRANCOATI ON/ADDEN DUM Shiloh TajdingKaroline gambinoo gretel [facility] 6 10:23:48 Disorder of breast 35585616 Completed 02/22/2016 Shiloh majano [facility] 6 10:23:48 Skin irritati on 832550094 Completed 02/22/2016 Shiloh Shanks reyna gretel [facility] 6 10:23:48 Abdomina l pain 47601374 Completed 02/22/2016 Shiloh gambinoo gretel [facility] 6 10:23:48 Lesion of liver 322775260 Completed 03/25/2018 Shiloh Shanks reyna gretel [facility] 8 15:58:08 Hypercho lesterol emia 64119474 Active 2015 Sybil majano [facility] 0 16:02:27 Smoker 29176913 Active 2016 Sybil majano [facility] 0 16:02:27 Sleep apnea 15871700 Active 2017 Sybil majano [facility] 0 16:02:27 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 sees neurolog y at [facility] Dr Bach, gets botox GELY ALVARADO MD [address] [address], [place], [address] , [facility] 3 10:45:42 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 Please review these documents and add these problems to the patient's chart manually as needed. Problem Notes None recorded. Procedures Surgical History Date Name Laterality Status Provider Name and Address Organization Details Recorded Time 10/26/20 24 Most Recent Mammogram completed Tawanna Capellan [facility] 10/27/2024 09:02:01 09/16/20 24 Advanced Care Planning completed GELY ALVARADO MD [address] [address], [place], [address], [facility] 09/16/2024 14:30:08 10/15/20 23 Most Recent Bone Density completed Little Alvarez [facility] 09/16/2024 13:50:40 05/29/20 23 Advanced Care Planning completed GELY ALVARADO MD [address] [address], [place], [address], [facility] 05/28/2023 13:55:45 05/15/20 22 Advanced Care Planning completed Gracia Salgado [facility] 05/15/2022 14:27:13 08/13/20 20 Mammogram both breasts completed Esha Stoddard [facility] 08/14/2020 08:41:53 05/03/20 20 Six-Item Cognitive Test completed Carrie Santos MA [facility] 05/03/2020 10:29:09 08/17/20 19 Date of Last Colonoscopy completed Eshamary Stoddard [facility] 08/14/2020 08:42:24 08/17/20 19 Endoscopic us exam esoph completed Eshamary Stoddard [facility] 08/18/2019 11:17:20 08/17/20 19 Colonoscopy completed Eshamary Stoddard [facility] 08/18/2019 11:18:26 03/29/20 19 Mini-Cog Test completed Carrie Santos MA [facility] 03/29/2019 10:02:31 03/25/20 18 Mini-Cog Test completed Carrie Santos MA [facility] 03/25/2018 15:44:49 11/17/19 14 Date of Last Pap Smear completed Carrie Santos MA [facility] 03/25/2018 15:44:45 12/18/19 05 Breast Biopsy completed Danyelle Monae MA [facility] 05/15/2022 10:13:51 12/04/18 79 Tubal Ligation completed Carrie Santos MA [facility] 03/25/2018 15:50:05 11/17/18 58 Tonsillectomy completed Carrie Santos MA [facility] 02/22/2016 10:07:59 Imaging Results Imaging Date Name Status LastModified by Organiz ation Details LastModified Time 08/21/2022 MAMMO, screening, digital, bilateral completed [address] (Outpt Imaging) [address] [place], [address], 08/21/2022 10:07:04 08/29/2022 US, breast, limited completed [facility] (Outpt Imaging) [address] [place], [address], 08/29/2022 14:41:59 11/20/2022 LDCT, chest, for lung cancer screening completed [facility] (Outpt Imaging) [address] [place], [address], 11/27/2022 13:11:00 03/28/2023 US, breast, limited completed [facility] (Outpt Imaging) [address] [place], [address], 03/28/2023 11:15:01 03/28/2023 mm digital mammo unilat left completed [facility] (Outpt Imaging) [address] [place], [address], 03/28/2023 11:15:01 10/15/2023 US, breast, limited completed [address] (Outpt Imaging) [address] [place], [address], 10/15/2023 09:30:24 10/15/2023 mm digital mammo bilateral completed [address] (Outpt Imaging) [address] [place], [address], 10/15/2023 09:29:42 10/15/2023 MAMMO, screening, digital, bilateral completed [address] [place], [address], 10/15/2023 09:30:38 10/15/2023 DEXA, axial skeleton completed [facility] (Outpt Imaging) [address] [place], [address], 10/15/2023 20:24:25 10/15/2023 bone density completed [address] [place], [address], 10/15/2023 16:49:10 11/26/2023 CT chest ldct lung program completed [facility] (Outpt Imaging) [address] [place], [address], 12/01/2023 10:54:53 11/26/2023 LDCT, chest, for lung cancer screening completed [address] [place], [address], 11/30/2023 15:29:32 06/12/2023 complete PFT* completed [facility] [address] [place], [address], 03/05/2024 15:42:58 10/26/2024 MAMMO, screening, bilateral completed [email or web address] [facility] [address], [place], [address], 10/27/2024 09:03:04 10/26/2024 MAMMO, screening, digital, bilateral completed [email or web address] [place] [address] (Outpt Imaging) [address] [place], [address], 10/27/2024 09:02:05 12/01/2024 CT chest ldct lung program completed [facility] (Outpt Imaging) [address] [place], [address], 12/02/2024 18:50:22 12/01/2024 LDCT, chest, for lung cancer screening completed [facility] [address] [place], [address], 12/08/2024 16:10:48 Procedure Notes None recorded. Medical Equipment None Reported. Allergies Allergen ID Allergen Name Allergen Category Reaction Reaction Severity Criticality Documentation Date Start Date Code Code System Note Provider Name and Address Organization Details Recorded Time 8638 codeine medicatio n vomiting severe Not available 05/31/20142013 2670 RxNorm [facility] [place] - [facility] 4 13:54:43 Medications Name Sig Start Date Stop Date Status Note LastModified by Organization Details LastModified Time lisinopri l/hydroch lorothiaz garcia 20-25 mg tabs active Not Available Not Available Not Available atorvasta tin calcium 10 mg tabs active Not Available Not Available Not Available Proctosol HC 2.5 % rectal cream with applicato r Insert 1 applicat orful twice a day by rectal route for 15 days. active Not Available Not Available No t Available ketoconaz ole 2 % shampoo 05/15 completed Not Available Not Available Not Available atorvasta tin 10 mg tablet TAKE 1 TABLET DAILY DIRECTED 2024 active Not Available Not Available Not Avai lable alendrona te 70 mg tablet Take 1 tablet every week by oral route for 90 days. active Not Available Not Available No t Available clobetaso l 0.05 % topical cream 09/28 completed Not Available Not Available Not Available baclofen 20 mg tablet Take 1 tablet every day by oral route. 05/03 completed Not Available Not Available Not Available ciproflox acin 0.3 % eye drops 09/28 completed Not Available Not Available Not Available baclofen 10 mg tablet Take 3 tablets every day by oral route. active Not Available Not Available No t Available lisinopri l 20 mg-hydroc hlorothia zide 25 mg tablet TAKE 1 TABLET DAILY DIRECTED 2023 active Not Available Not Available Not Avai lable fluocinon garcia 0.05 % topical solution active Not Available Not Available Not Available Co Q-10 10 mg capsule Take 1 capsule every day by oral route. 09/30 completed Not Available Not Available Not Available calcium carbonate 09/16 completed with D3 25mcg takes 1 capsule daily Not Available Not Available Not Available fluocinol one 0.5 prn 09/16 completed Not Available Not Available Not Available calcium DAILY 09/30 completed RECORDED 12/01/19 14 3:40PM BY CARRIE SANTOS, OFFICE VISIT; Not Available Not Available Not Available Fish Oil DAILY 09/30 completed RECORDED 12/01/19 14 3:40PM BY CARRIE SANTOS, OFFICE VISIT; Not Available Not Available Not Available calcium citrate 630mg with vitamin D 10mcg daily 03/05 completed Not Available Not Available Not Available multivita min DAILY 09/30 completed RECORDED 12/01/19 14 3:40PM BY CARRIE SANTOS, OFFICE VISIT; Not Available Not Available Not Available varenicli ne tartrate 1 mg tablet BID 03/27 completed RECORDED 03/27/20 11 3:51PM BY MADELEINE REEVES MA, OFFICE VISIT; Not Available Not Available Not Available Zostavax (PF) 19,400 unit/0.65 mL subcutane ous suspensio n WOODY X 1 active Not Available Not Available Not Available Chantix Starting Month Osman 0.5 mg (11)-1 mg (42) tablets in dose pack BID 07/25 completed RECORDED 12/28/19 11 3:26PM BY SHILOH López MD, MEDICATI ON AUTO-MAGGIE CTIVATIO N; Not Available Not Available Not Available Probiotic 09/30 completed Not Available Not Available Not Available Clenpiq 10 mg-3.5 gram-12 gram/160 mL oral solution 09/29 completed Not Available Not Available Not Available Fluzone High-Dose Quad 2020-21 (PF) 240 mcg/0.7 mL IM syringe 10/27 completed Not Available Not Available Not Available Centrum Adult 50 Plus 1 capsule daily active Not Available Not Available No t Available Vitals Date Recorded Body height Body mass index (BMI) Body weight Heart rate Oxygen saturation Oxygen saturation in Arterial blood by Pulse oximetry Body temperature Systolic blood pressure Diastolic blood pressure Provider Name and Address Organization Details Last Updated DateTime 161.29 cm 23.7 kg/m2 85983.5 6 g 97 /min 99 % 99 % 98.42 [degF] 123 mm[Hg] 68 mm[Hg] Danyelle Monae MA [facility] 2 10:21:36 Date Recorded Heart rate Systolic blood pressure Diastolic blood pressure Provider Name and Address Organization Details Last Updated DateTime 05/15/2022 75 /min 110 mm[Hg] 57 mm[Hg] Not Available [facility] 05/15/2022 16:01:02 Date Recorded Heart rate Systolic blood pressure Diastolic blood pressure Provider Name and Address Organization Details Last Updated DateTime 05/16/2022 83 /min 105 mm[Hg] 53 mm[Hg] Not Available [facility] 05/16/2022 13:18:03 Date Recorded Heart rate Systolic blood pressure Diastolic blood pressure Provider Name and Address Organization Details Last Updated DateTime 05/17/2022 74 /min 118 mm[Hg] 63 mm[Hg] Not Available [facility] 05/17/2022 14:48:02 Date Recorded Heart rate Systolic blood pressure Diastolic blood pressure Provider Name and Address Organization Details Last Updated DateTime 05/18/2022 68 /min 122 mm[Hg] 63 mm[Hg] Not Available [facility] 05/18/2022 11:37:05 Date Recorded Heart rate Systolic blood pressure Diastolic blood pressure Provider Name and Address Organization Details Last Updated DateTime 05/19/2022 78 /min 109 mm[Hg] 56 mm[Hg] Not Available [facility] 13:42:03 Date Recorded Heart rate Systolic blood pressure Diastolic blood pressure Provider Name and Address Organization Details Last Updated DateTime 05/20/2022 72 /min 127 mm[Hg] 69 mm[Hg] Not Available [facility] 05/20/2022 20:32:02 Date Recorded Heart rate Systolic blood pressure Diastolic blood pressure Provider Name and Address Organization Details Last Updated DateTime 05/21/2022 68 /min 122 mm[Hg] 65 mm[Hg] Not Available [facility] 05/21/2022 13:23:05 Date Recorded Heart rate Systolic blood pressure Diastolic blood pressure Provider Name and Address Organization Details Last Updated DateTime 05/22/2022 74 /min 128 mm[Hg] 65 mm[Hg] Not Available [facility] 05/22/2022 15:52:05 Date Recorded Heart rate Systolic blood pressure Diastolic blood pressure Provider Name and Address Organization Details Last Updated DateTime 05/23/2022 85 /min 122 mm[Hg] 65 mm[Hg] Not Available [facility] 05/23/2022 16:46:05 Date Recorded Heart rate Systolic blood pressure Diastolic blood pressure Provider Name and Address Organization Details Last Updated DateTime 05/25/2022 76 /min 122 mm[Hg] 62 mm[Hg] Not Available [facility] 05/25/2022 13:27:08 Date Recorded Heart rate Systolic blood pressure Diastolic blood pressure Provider Name and Address Organization Details Last Updated DateTime 05/26/2022 69 /min 122 mm[Hg] 61 mm[Hg] Not Available [facility] 05/26/2022 12:14:07 Date Recorded Heart rate Systolic blood pressure Diastolic blood pressure Provider Name and Address Organization Details Last Updated DateTime 05/27/2022 77 /min 122 mm[Hg] 61 mm[Hg] Not Available [facility] 05/27/2022 15:49:05 Date Recorded Heart rate Systolic blood pressure Diastolic blood pressure Provider Name and Address Organization Details Last Updated DateTime 05/28/2022 76 /min 122 mm[Hg] 61 mm[Hg] Not Available [facility] 05/28/2022 12:11:03 Date Recorded Heart rate Systolic blood pressure Diastolic blood pressure Provider Name and Address Organization Details Last Updated DateTime 05/29/2022 83 /min 115 mm[Hg] 61 mm[Hg] Not Available [facility] 12:18:02 Date Recorded Heart rate Systolic blood pressure Diastolic blood pressure Provider Name and Address Organization Details Last Updated DateTime 05/30/2022 65 /min 129 mm[Hg] 63 mm[Hg] Not Available [facility] 05/30/2022 16:07:02 Date Recorded Heart rate Systolic blood pressure Diastolic blood pressure Provider Name and Address Organization Details Last Updated DateTime 05/31/2022 73 /min 104 mm[Hg] 53 mm[Hg] Not Available [facility] 13:46:07 Date Recorded Heart rate Systolic blood pressure Diastolic blood pressure Provider Name and Address Organization Details Last Updated DateTime 06/01/2022 68 /min 114 mm[Hg] 53 mm[Hg] Not Available [facility]/01/[facility]22 15:14:03 Date Recorded Heart rate Systolic blood pressure Diastolic blood pressure Provider Name and Address Organization Details Last Updated DateTime 06/02/2022 71 /min 117 mm[Hg] 55 mm[Hg] Not Available [facility] 06/02/2022 16:25:05 Date Recorded Heart rate Systolic blood pressure Diastolic blood pressure Provider Name and Address Organization Details Last Updated DateTime 06/03/2022 62 /min 107 mm[Hg] 55 mm[Hg] Not Available [facility] 14:21:06 Date Recorded Heart rate Systolic blood pressure Diastolic blood pressure Provider Name and Address Organization Details Last Updated DateTime 06/04/2022 82 /min 109 mm[Hg] 55 mm[Hg] Not Available [facility]/04/[facility]22 13:32:05 Date Recorded Heart rate Systolic blood pressure Diastolic blood pressure Provider Name and Address Organization Details Last Updated DateTime 06/05/2022 77 /min 111 mm[Hg] 55 mm[Hg] Not Available [facility] 06/05/2022 14:51:02 Date Recorded Heart rate Systolic blood pressure Diastolic blood pressure Provider Name and Address Organization Details Last Updated DateTime 06/06/2022 74 /min 117 mm[Hg] 56 mm[Hg] Not Available [facility] 15:40:04 Date Recorded Heart rate Systolic blood pressure Diastolic blood pressure Provider Name and Address Organization Details Last Updated DateTime 06/07/2022 85 /min 115 mm[Hg] 56 mm[Hg] Not Available [facility] 14:03:02 Date Recorded Heart rate Systolic blood pressure Diastolic blood pressure Provider Name and Address Organization Details Last Updated DateTime 06/08/2022 62 /min 130 mm[Hg] 54 mm[Hg] Not Available [facility] 06/08/2022 11:51:04 Date Recorded Heart rate Systolic blood pressure Diastolic blood pressure Provider Name and Address Organization Details Last Updated DateTime 06/09/2022 60 /min 123 mm[Hg] 55 mm[Hg] Not Available [facility] 06/09/2022 11:43:04 Date Recorded Heart rate Systolic blood pressure Diastolic blood pressure Provider Name and Address Organization Details Last Updated DateTime 06/11/2022 71 /min 121 mm[Hg] 57 mm[Hg] Not Available [facility] 06/11/2022 16:56:04 Date Recorded Heart rate Systolic blood pressure Diastolic blood pressure Provider Name and Address Organization Details Last Updated DateTime 06/12/2022 75 /min 119 mm[Hg] 57 mm[Hg] Not Available [facility] 06/12/2022 13:56:03 Date Recorded Heart rate Systolic blood pressure Diastolic blood pressure Provider Name and Address Organization Details Last Updated DateTime 06/13/2022 79 /min 98 mm[Hg] 47 mm[Hg] Not Available [facility] 06/13/2022 14:06:02 Date Recorded Heart rate Systolic blood pressure Diastolic blood pressure Provider Name and Address Organization Details Last Updated DateTime 06/14/2022 63 /min 112 mm[Hg] 51 mm[Hg] Not Available [facility] 06/14/2022 14:34:05 Date Recorded Heart rate Systolic blood pressure Diastolic blood pressure Provider Name and Address Organization Details Last Updated DateTime 06/16/2022 77 /min 96 mm[Hg] 61 mm[Hg] Not Available [facility] 06/16/2022 16:02:04 Date Recorded Heart rate Systolic blood pressure Diastolic blood pressure Provider Name and Address Organization Details Last Updated DateTime 06/18/2022 78 /min 119 mm[Hg] 61 mm[Hg] Not Available [facility] 06/18/2022 14:21:04 Date Recorded Heart rate Systolic blood pressure Diastolic blood pressure Provider Name and Address Organization Details Last Updated DateTime 06/19/2022 71 /min 115 mm[Hg] 61 mm[Hg] Not Available [facility] 06/19/2022 12:56:02 Date Recorded Heart rate Systolic blood pressure Diastolic blood pressure Provider Name and Address Organization Details Last Updated DateTime 06/20/2022 67 /min 110 mm[Hg] 48 mm[Hg] Not Available [facility] 06/[facility]/2022 14:18:02 Date Recorded Heart rate Systolic blood pressure Diastolic blood pressure Provider Name and Address Organization Details Last Updated DateTime 06/22/2022 72 /min 110 mm[Hg] 52 mm[Hg] Not Available [facility] 06/22/2022 11:00:04 Date Recorded Heart rate Systolic blood pressure Diastolic blood pressure Provider Name and Address Organization Details Last Updated DateTime 06/23/2022 71 /min 114 mm[Hg] 58 mm[Hg] Not Available [facility] 06/23/2022 14:40:03 Date Recorded Heart rate Systolic blood pressure Diastolic blood pressure Provider Name and Address Organization Details Last Updated DateTime 06/24/2022 85 /min 107 mm[Hg] 48 mm[Hg] Not Available [facility] 06/24/2022 13:43:03 Date Recorded Heart rate Systolic blood pressure Diastolic blood pressure Provider Name and Address Organization Details Last Updated DateTime 06/25/2022 77 /min 117 mm[Hg] 53 mm[Hg] Not Available [facility] 06/25/2022 13:35:09 Date Recorded Body height Body mass index (BMI) Body weight Oxygen saturation Oxygen saturation in Arterial blood by Pulse oximetry Heart rate Body temperature Systolic blood pressure Diastolic blood pressure Provider Name and Address Organization Details Last Updated DateTime 3 161.29 cm 23.7 kg/m2 65124.5 6 g 98 % 98 % 83 /min 98.1 [degF] 126 mm[Hg] 79 mm[Hg] Carrie Santos MA [facility] 3 10:26:24 Date Recorded Body height Body mass index (BMI) Body weight Heart rate Oxygen saturation Oxygen saturation in Arterial blood by Pulse oximetry Body temperature Systolic blood pressure Diastolic blood pressure Provider Name and Address Organization Details Last Updated DateTime 4 161.29 cm 23.7 kg/m2 26579.5 6 g 87 /min 97 % 97 % 98.4 [degF] 137 mm[Hg] 78 mm[Hg] Lsely Christian MA [facility] 4 10:42:38 Date Recorded Systolic blood pressure Diastolic blood pressure Provider Name and Address Organization Details Last Updated DateTime 11/18/2023 118 mm[Hg] 70 mm[Hg] GELY ALVARADO MD [address], [address], [facility] 11/18/2023 11:00:21 Date Recorded Body height Body mass index (BMI) Body weight Heart rate Oxygen saturation Oxygen saturation in Arterial blood by Pulse oximetry Body temperature Systolic blood pressure Diastolic blood pressure Provider Name and Address Organization Details Last Updated DateTime 4 161.29 cm 23.9 kg/m2 92676.1 5 g 77 /min 100 % 100 % 98.2 [degF] 138 mm[Hg] 75 mm[Hg] Lesly Christian MA [facility] 4 11:27:13 Date Recorded Systolic blood pressure Diastolic blood pressure Provider Name and Address Organization Details Last Updated DateTime 03/05/2024 130 mm[Hg] 70 mm[Hg] GELY ALVARADO MD [address] [place] [address], [address], [facility] 03/05/2024 11:41:54 Date Recorded Body height Body mass index (BMI) Body weight Heart rate Oxygen saturation Oxygen saturation in Arterial blood by Pulse oximetry Body temperature Systolic blood pressure Diastolic blood pressure Provider Name and Address Organization Details Last Updated DateTime 4 161.29 cm 23.5 kg/m2 70903.9 7 g 77 /min 98 % 98 % 98.3 [degF] 137 mm[Hg] 71 mm[Hg] Little Jaquez [facility] 4 13:49:09 Date Recorded Systolic blood pressure Diastolic blood pressure Provider Name and Address Organization Details Last Updated DateTime 09/16/2024 132 mm[Hg] 78 mm[Hg] GELY ALVARADO MD [address] [place] [address], [address], [facility] 09/16/2024 14:14:17 Social History Question Answer Notes LastModified by Organizat ion Details LastModified Time Tobacco Smoking Status Current Every Day Smoker Carrie Santos MA [facility] 09/30/2016 15:14:33 What Is Your Level Of Alcohol Consumption? Occasional [email or web address] Information not available 12/07/2014 Is Blood Transfusion Acceptable In An Emergency? Yes [email or web address] Information not available 02/22/2016 What Is Your Level Of Caffeine Consumption? Moderate Information not available 09/16/2024 How Much Tobacco Do You Chew? None [email or web address] Information not available 05/02/2021 Are You Currently Employed? No Information not available 05/02/2021 What Type Of Diet Are You Following? REGULAR [email or web address] Information not available 12/07/2014 Which Illicit Or Recreational Drugs Have You Used? None [email or web address] Information not available 02/22/2016 Do You Or Have You Ever Used E-cigarettes Or Vape? Never Used Electronic Cigarettes [email or web address] Information not available 11/18/2023 What Is Your Occupation? Retired [email or web address] Information not available 11/14/2021 Live Alone Or With Others? With Others Clint [email or web address] Information not available 11/18/2023 Do You Take Precautions To Prevent Distracted Driving? Yes [email or web address] Information not available 02/22/2016 How Often Do You Need To Have Someone Help You When You Read Instructions, Pamphlets, Or Other Written Material From Your Doctor Or Pharmacy? Never [email or web address] Information not available 02/22/2016 Have You Served In The ? No [email or web address] Information not available 03/24/2017 Have You Or Anyone In Your Household Had Any Of The Following Symptoms In The Last 14 Days: Sore Throat, Cough, Chills, Body Aches For Unknown Reasons, Shortness Of Breath For Unknown Reasons, Loss Of Smell, Loss Of Taste, Fever At Or Greater Than 100 Degrees Fahrenheit? No [email or web address] Information not available 10/27/2020 Are You Or Anyone In Your Household A Health Care Provider Or Emergency Responder? No [email or web address] Information not available 10/27/2020 To The Best Of Your Knowledge Have You Been In Close Proximity To Any Individual Who Tested Positive For COVID-19? No [email or web address] Information not available 10/27/2020 *AWV ONLY* Are You Presently Prescribed Opioid Medication By PCP Or Specialist? If YES -Provider Assess The Benefit For Other, Non-opioid Pain Therapies Instead, Even If The Patient Does Not Have OUD But Is Possibly At Risk. No [email or web address] Information not available 05/02/2021 Have You Recently Traveled To A [facility]- High Risk Area Or Gathering In The Last 10 Days? No Information not available 05/02/2021 What Was The Date Of Your Most Recent Tobacco Screening? 09/16/2024 Information not available 09/16/2024 How Many Children Do You Have? 3 [email or web address] Information not available 12/07/2014 What Is Your Current Pack Years? 20-29packyears [email or web address] Information not available 11/18/2023 Do You Use Your Seat Belt Or Car Seat Routinely? Yes Information not available 11/14/2021 Seat Belts Used Routinely Yes [email or web address] Information not available 11/18/2023 Are You Sexually Active? No [email or web address] Information not available 05/02/2021 Smoke Alarm In Home Yes [email or web address] Information not available 11/18/2023 Do You Have Smoke And Carbon Monoxide Detectors In Your Home? Yes Information not available 11/14/2021 At What Age Did You Start Smoking Tobacco? 18 [email or web address] Information not available 05/02/2021 Are You Passively Exposed To Smoke? No [email or web address] Information not available 02/22/2016 Do You Or Have You Ever Used Smokeless Tobacco? Never Used Smokeless Tobacco [email or web address] Information not available 05/03/2020 How Much Tobacco Do You Smoke? 0.5 PPD [email or web address] Information not available 09/30/2016 General Stress Level Low [email or web address] Information not available 11/18/2023 Do You Use Any Illicit Or Recreational Drugs? No [email or web address] Information not available 11/18/2023 Do You Use Sunscreen Routinely? Yes [email or web address] Information not available 12/07/2014 How Many Years Have You Smoked Tobacco? 50 [email or web address] Information not available 05/02/2021 Do You Or Have You Ever Used Any Other Forms Of Tobacco Or Nicotine? No [email or web address] Information not available 11/18/2023 Sex: Unknown Functional Status Question Answer Note LastModified by Organization D etails LastModified Time Are you able to walk? [email or web address] Information not available 11/18/2023 Are you able to care for yourself? Yes [email or web address] Information not available 12/07/2014 What is your exercise level? None [email or web address] Information not available 12/07/2014 Mental Status None recorded. Family History Relationship Description Onset Age of this Age Resolved Age Notes LastModified by Organization Details LastModified Time Paternal Grandmother Carcinoma in situ of breast [email or web address] Not available 2023 11:20:04 Mother Hypertensive disorder [email or web address] Not available 02/21 10:12:41 Mother Hypercholest erolemia [email or web address] Not available 02/21 10:12:41 Father Coronary arterioscler osis [email or web address] Not available 2023 11:20:04 Sister Carcinoma in situ of breast [email or web address] Not available 2023 11:20:04 Notes:No FH of colon cancer Medical History Condition Response Gout N Other Y Kidney Stones N Blood Diseases N Hyperthyroidism N Breast Cancer N Hypothyroidism N Lung Disease N Depression N COPD N Defects or Inherited Disease N Anesthesia Complications N Headaches/Migraines N Anxiety Disorder N Varicose Veins N Obesity N Vision or Eye Problems N Arthritis N Head Injury/Concussion N Infertility N Polyps N Congenital Anomalies N Acid Reflux (GERD) N Cancer N Stroke N ADHD N Endometriosis N High Cholesterol Y Liver Disease N Fibromyalgia N Kidney Disease N Heart Problems N Ear or Hearing Problems N Hospitalizations N Thyroid Problems N GI Problems Y Acne N Eating Disorder N Skin Problems N Anemia N Constipation N Bladder Problems N Mental Illness N Diabetes N Ovarian Cancer N Blood Transfusions N Seizures/Epilepsy N Tuberculosis N AIDS/HIV N Congestive Heart Failure (CHF) N Eczema N Abuse/Domestic Violence N Diverticulitis N Asthma N Allergies N Reflux/GERD N Hepatitis N Pulmonary Embolism N Hypertension Y Chicken Pox Y Autism Spectrum Disorder (ASD) N Osteoporosis N Gynecological History Statement/Question Response Date of Last Pap Smear 11/17/2013 Date of Last Colonoscopy 08/17/2019 Most Recent Mammogram 10/26/2024 Most Recent Bone Density 10/15/2023 Obstetrics History GPAL:G 0 P 0 0 0 0 Immunizations Vaccine Type Date Status Note Provider Nam e and Address Organization Details Recorded Time Td (adult), 5 Lf tetanus toxoid, preservative free, adsorbed 4 completed Sybil Howe null, [facility] 05/03/2020 16:02:24 zoster live 4 completed Sybil Howe null, [facility] 05/03/2020 16:02:24 Influenza, split virus, trivalent, preservative 4 completed Sybil Howe null, [facility] 05/03/2020 16:02:24 Influenza, high-dose, trivalent, PF 5 completed Sybil Howe null, [facility] 05/03/2020 16:02:24 Influenza, split virus, quadrivalent, preservative 6 completed Sybil Howe null, [facility] 05/03/2020 16:02:24 Influenza, split virus, quadrivalent, preservative 7 completed Sybil Howe null, [facility] 05/03/2020 16:02:24 Tdap 4 completed Sybil Howe null, [facility] 05/03/2020 16:02:24 Influenza, split virus, quadrivalent, preservative 8 completed Sybil Howe null, [facility] 05/03/2020 16:02:24 Influenza, high-dose, quadrivalent, PF 0 completed Carrie Santos MA null, [facility] 10/27/2020 12:53:33 COVID-19, mRNA, LNP-S, PF, 30 mcg/0.3 mL dose 1 completed Carrie Santos MA null, [facility] 07/19/2021 11:17:14 COVID-19, mRNA, LNP-S, PF, 30 mcg/0.3 mL dose 1 completed Carrie Santos MA null, [facility] 07/19/2021 11:16:49 Influenza, split virus, quadrivalent, preservative 1 completed Danyelle Monae MA null, [facility] 11/14/2021 10:40:21 zoster recombinant 2 completed Farhana Blanco null, [facility] 05/15/2022 10:42:54 zoster recombinant 2 completed GELY ALVARADO MD [address] [facility] [address], [place], [address], [facility] 05/29/2023 19:04:44 Tdap 4 completed Sybil Howe null, [facility] 10/07/2024 10:44:29 Pneumococcal conjugate PCV20, polysaccharide [id number] conjugate, adjuvant, PF 4 completed Sybil Howe null, [facility] 10/07/2024 10:45:05 pneumococcal polysaccharide PPV23 6 completed Not Available Count includes the [facility] 12/04/2019 02:21:26 Pneumococcal conjugate PCV 13 8 completed Not Available Count includes the [facility] 12/04/2019 02:21:38 Influenza, high-dose, trivalent, PF 9 completed Not Available Count includes the [facility] 12/04/2019 02:22:09 Td (adult), 2 Lf tetanus toxoid, preservative free, adsorbed 7 completed Sybli Howe null, [facility] 05/03/2020 16:02:24 Tdap 8 completed Sybil Howe null, [facility] 05/03/2020 16:02:24 Influenza, split virus, trivalent, preservative 9 completed Sybil Howe null, [facility] 05/03/2020 16:02:24 Novel [id number], all formulations 0 completed Sybil Howe null, [facility] 05/03/2020 16:02:23 Influenza, split virus, trivalent, preservative 0 completed Sybil Howe null, [facility] 05/03/2020 16:02:24 Influenza, split virus, trivalent, preservative 1 completed Sybil Howe null, [facility] 05/03/2020 16:02:23 Influenza, split virus, trivalent, preservative 2 completed Sybilguy Howe null, [facility] 05/03/2020 16:02:24 Influenza, split virus, trivalent, preservative 3 completed Sybil majano, [facility] 05/03/2020 16:02:24 Past Encounters Encounter ID Performer Location Encounter Start Date Encounter Closed Date Diagnosis/Indication Diagnosis SNOMED-CT Code Diagnosis ICD10 Code Diagnosis Note [id number] [facility] [address] [facility] [place] [address] 07/24/2006 00:00:00 [id number] [employer] [facility] [address] [facility] [place] [address] 03/20/2006 00:00:00 [id number] [employer] [address] [facility] [place] [address] 02/06/2006 00:00:00 [id number] [employer] [facility] [address] [facility] [place] [address] 12/27/2005 00:00:00 [id number] [employer] [facility] [address] [facility] [place] [address] 02/11/2007 00:00:00 [id number] [employer] [facility] [address] [facility] [place] [address] 02/17/2008 00:00:00 [id number] [employer] [address] [facility] [place] [address] 08/24/2008 00:00:00 [id number] [employer] [address] [facility] [place] [address] 03/15/2009 00:00:00 [id number] [employer] [address] [facility] [place] [address] 09/18/2009 00:00:00 [id number] [employer] erce [address] [place] [address] 03/26/2010 00:00:00 [id number] auto[employer] erce [address] [place] [address] 06/27/2010 00:00:00 [id number] [employer] erce [address] [facility] [place] [address] 12/31/2010 00:00:00 [id number] [employer] [address] [place] [address] 03/27/2011 00:00:00 [id number] [employer] erce [address] [facility] [place] [address] 09/27/2011 00:00:00 [id number] [employer] [address] [facility] [place] [address] 04/15/2012 00:00:00 [id number] [employer] erce [address] [facility] [place] [address] 10/15/2012 00:00:00 [id number] [facility] erce [address] [facility] [place] [address] 02/08/2013 00:00:00 [id number] [employer] [address] [facility] [place] [address] 12/01/2013 00:00:00 [id number] auto[employer] erce [address] [facility] [place] [address] 04/18/2014 00:00:00 [id number] Galileo Castillo Main Office [address] [facility] [address] [place] [address] 12/07/2014 15:20:59 12/07/2014 16:23:51 Adult health examination [id number] pap done today,. is getting repeat mammogram views soon. Sampling o f vagina for Papanicolaou smear 816176724 no symptoms Essential hypertension 73209019 well controlled continue meds Pure hypercholesterolemia 963872733 continue meds Skin irritation 913767979 perianal after diarrheal illness, use med below Ex-smoker 9902133 I discussed with pt her option of seeing a pulmonolog ist and asking about a low dose CT scan of chest for screening for lung malignancy in light of her long smoking hx, she will think about this and she will also discuss this option with her who was a smoker too [id number] Main Office [address] [address] [place] [address] 05/18/2015 10:36:16 05/18/2015 11:29:33 Essential hypertension 37249450 well controlled continue meds Abdominal pain 99042341 RUQ pain with nausea, loose stools, on and off for a month, will get labs below, check Us, ? gallstones , see pt back in a few weeks but come up with next step over phone after labs and US done. [id number] Lorin Fragoso Main Office [address] [address] [place] [address] 06/07/2015 16:16:04 06/07/2015 16:46:16 Abdominal pain 35705313 better, US shows ? of hemangioma of liver, will ask Dr Araiza if imaging needs ot followup on this. [id number] Shiloh Dimitris orellana Main Office [address] [address] [place] [address] 10/05/2015 15:58:46 10/05/2015 16:35:55 Essential hypertension 76770813 I10 well controlled continue meds, a bit high here but very well controlled at home. Pure hypercholesterolemia 757716518 E78.0 continue meds, check fasting [id number] Shiloh orellana Main Office [address] [address] [place] [address] 02/22/2016 09:47:19 02/22/2016 10:50:27 Adult health examination 855905075 Z00.00 all screening is utd, refuses PCV 23 Pure hypercholesterolemia 636700757 E78.0 continue meds, check labs Essential hypertension 71367552 I10 well controlled continue meds Lesion of liver 24703033 0 K76.9 needs repeat US 06/01 to determine stability, ? hemangioma Ex-smoker 7412532 Z87.89 1 pt not interested in lung cancer screening, she understand s it is recommende d. 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 F17.290 pt refused lung cancer screenign program, aware if is there is she changes her mind MRI scan abnormal 856068 003 R93.8 needs repeat MRI/ MRCP of abdomen in a year to followup very small pancreatic lesions, is followed by DR Araiza he will order scan [id number] Shiloh galvanenzo Main Office [address] [facility] [address] [place] [address] 03/24/2017 15:29:56 03/24/2017 16:36:42 Adult health examination 391265644 Z00.00 all screening is utd, due for prevnar next visit Hypercholesterolemia 136 33163 E78.2 check fasting and liver tests, continue med Essential hypertension 13986893 I10 well controlled continue meds Cigarette smoker 7855844 7 F17.210 not interested in lung cancer screening program though she qualifies and she knows she should get Pain in right knee 81761 97054 90342 M25.561 had MRI, saw ortho, needs time, had MCL sprain from twisting injury [id number] Shiloh HortaDalila canmer Main Office [address] [facility] [address] [place] [address] 09/24/2017 15:49:35 09/24/2017 16:29:41 Essential hypertension 03215843 I10 well controlled continue meds Tobacco de pendence syndrome 42696667 F17.290 long talk, suggested chantix, not ready but urged her to do soon Hypercholesterolemia 136 30725 E78.2 check fasting and liver tests, continue med Screening for malignant neoplasm of lung 632728148 Z12.2 sign pt up for this so she can get called, pt is reluctant but I want her to be aware of how the service works MRI scan abnormal 252340 003 R93.8 needs repeat MRI/ MRCP of abdomen to followup very small pancreatic lesions, is followed by DR Araiza he will order scan, pt got a call from his office to se tu scan,s he will call them arrange scanad n followup visit [id number] [facility] Main Office [address] [facility] [address] [place] [address] 03/25/2018 15:32:44 03/25/2018 16:20:58 Adult health examination 934318724 Z00.00 all screening is utd, due for prevnar next visit Hypercholesterolemia 136 68732 E78.2 check fasting continue med Essential hypertension 61187047 I10 well controlled continue meds Smoker 77479636 F17.200 encouraged her to stop Tremor 21069223 R25.1 head and tremor with finger to nose testing, refer to neurology and check thyroid labs Administra tion of pneumococcal vaccine 43295385 Z23 [id number] [facility] Main Office [address] [facility] [address] [place] [address] 09/28/2018 15:54:21 09/28/2018 16:30:59 Essential hypertension 91142350 I10 well controlled continue meds 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 this is thought causing pts head tremor as per neurology, continue meds, considerin g botox Sleep apnea 17586567 G47 .30 well treated on cpap [id number] [facility] Main Office [address] [facility] [address] [place] [address] 03/29/2019 09:55:23 03/29/2019 10:44:35 Adult health examination 937858478 Z00.00 all shots utd, mammogram is due will arrange is more active due to alf , stopped smoking a month ago Screening for malignant neoplasm of breast 438221885 Z12.39 pt to arrange Sleep apnea 37913195 G47 .30 well treated on cpap Hypercholesterolemia 136 86275 E78.2 check fasting continue med Essential hypertension 71642459 I10 well controlled continue meds Ex-cigarette smoker 2810 12961 Z87.891 just quit smoking 1 month ago, definately smoked more than 30 pack year Screening for malignant neoplasm of lung 244217131 Z87.891 Eligible patients must have >=30 pack years Lesion of skin of face 3412383262 06 L98.9 dermatolog y in [place] just examined, will remove this, itches and pt scrathces it, it is irritated MRI scan abnormal 232546 003 R93.89 in 2016 MRI of abdomen with areas of pancreas that needed f/u pt has been contacted by GI and they are arranging a repeat MRI of abdomen for f/u I urged pt to go through with this despite possiblili ty of a large copay [id number] Farhana Daniela Main Office [address] [facility] [address] [place] [address] 06/23/2019 13:53:33 06/23/2019 14:56:04 Diarrhea 00089101 R19.7 ORIANA diet, hydrate with pedialyte or gatorade, sparing use of otc anti diarrheals until stool studies are back. Colon needed Unintentio nal weight loss 151921533 R63.4 labs today, likely from not eating enough. Dr Segal may want to do EGD also if labs ok. 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 no symptoms now, not on tx, dx by colonoscop y Isolated c ervical dystonia 934990519 G24.8 this is thought causing pts head tremor as per neurology, continue meds, botox helps followed by neurology Smoker 93816751 F17.200 encouraged her to stop again Screening for malignant neoplasm of lung 542319836 Z87.891 pt has smokes more than 30 pack year Eligible patients must have >=30 pack years [id number] Shiloh HortaDalila canmer Main Office [address] [facility] [address] [place] [address] 05/03/2020 09:48:07 05/03/2020 10:48:53 Adult health examination 567841323 Z00.00 all shots utd, mammogram is due in May, she will arrange is more active due to alf , still smoking Essential hypertension 21524379 I10 well controlled continue meds check lytes Smoker 41839741 F17.200 encouraged her to stop again, she had success with patches Hypercholesterolemia 136 19726 E78.2 continue med Multiple n odules of lung 280140834 R91.8 needs LDCT of chest annually, which is 11/05 [id number] [facility] Main Office [address] [facility] [address] [place] [address] 10/27/2020 12:40:51 10/27/2020 13:21:41 Essential hypertension 96634418 I10 well controlled continue meds check lytes since on hctz Hypercholesterolemia 136 06515 E78.2 continue med good level Sleep apnea 22808978 G47 .30 well treated on cpap, not getting sleepy in afternoon Smoker 01200033 F17.200 encouraged her to stop again, she had success with patches encouraged her to stop now [id number] [facility] Main Office [address] [facility] [address] [place] [address] 05/02/2021 08:40:36 05/02/2021 09:37:39 Adult health examination 696001668 Z00.00 pt to get shingles vaccine, mammogram is due in jul, she will arrange is more active due to alf , still smoking Essential hypertension [id number] I10 well controlled continue meds check lytes since on hctz Hypercholesterolemia 136 66896 E78.2 continue med check fasting Lymphocyti c-plasmacyt ic colitis 37106196 K52.832 no symptoms now, not on tx, dx by colonoscop y prn pepto bismol Smoker 07125275 F17.200 encouraged her to stop again, she had success with patches encouraged her to stop now Chronic ob structive pulmonary disease 80684270 J44.9 denies dyspnea, lungs with some reduction in air mvt, discussed with pt to let me know about symptoms and we will start inhaler [id number] Shiloh Dimitris orellana Main Office [address] [facility] [address] C[place]riti [place], SON[place] [address] 11/14/2021 10:21:25 11/14/2021 10:59:08 Essential hypertension [id number] I10 well controlled continue meds check lytes since on hctz and will sign up for [employer] monitoring , she is interested Chronic ob structive pulmonary disease 26188006 J44.9 denies dyspnea, lungs with some reduction in air mvt, discussed with pt to let me know about symptoms and we will start inhaler still smoking Hypercholesterolemia 136 70871 E78.2 continue med last fasting well controlled Tobacco de pendence syndrome 84633939 F17.290 pt restarted smoking 3 months ago, strongly encouraged her to quit again. is utd on LDCT [id number] Gracia Porraso Main Office [address] [facility] [address] [facility] ERPriti [place], [place] [address] 05/15/2022 10:00:03 05/15/2022 11:04:57 Adult health examination 511411361 Z00.00 Pt is in good general health. Social and family history reviewed. Immunizati ons reviewed, advised annual flu shot. She is upt to date on dental and eye providers, mammogram up to date, colon up to date, Reviewed diet and exercise. Advance di rective discussed with patient [id number] Z71.89 pt has this, given molst form Essential hypertension 36181265 I10 BP is controlled on present regimen, continue all meds at current dosages. Continue with low salt diet, exercise Chronic ob structive pulmonary disease 41834164 J44.9 pt get LDCT yearly Varicella vaccination 68 803621 Z23 pt had first , will get second Screening for malignant neoplasm of breast 734207082 Z12.39 up to date Screening for malignant neoplasm of cervix 237955238 Z12.4 Menopause present 077371 006 Z78.0 Tobacco de pendence syndrome 87076960 F17.200 enc pt to stop, does do LDCT Screening for malignant neoplasm of lung 178465287 Z87.891 Eligible patients must have >=20 pack years [id number] GELY ALVARADO MD Main Office [address] [facility] [address] [facility] [place] [address] 05/29/2023 10:07:22 05/29/2023 10:52:35 Adult health examination 545464066 Z00.00 Health Maintenanc e FemaleA) Patient was counseled on healthy diet, exercise and nutrition. BMI of 23.7. B) ScreeningL ast Mammogram: start at age 50 stop at 76Date: 03/28/2023R esult: BIRADS-3Ne xt: needs a repeat on the right in 6 months, Last Pap smear: aged out Last Colonoscop y: start at age 45-75Date: 08/17/2019 Result: diverticul osis and internal hemorrhoid sNext: 10 years Last DEXA scan:Date: orderedRes ult: ??? Lung cancer screening: Date: 11/20/2022Re sult:Next: 10/2024 C) Vaccines:I nfluenza: 08/04/2022 TdAP: 11/17/2013 Zoster: 12/10/2013 , 05/13/2022 , 2PC V13: 03/25/2018 PPSV23: 09/30/2016 , needs a repeatCOVI , 02/18/2021 D) Routine blood work orderedE) Updated patient's history RTC in one year for annual exam or sooner if any acute complaints Advance di rective discussed with patient 061286121 Z71.89 - counselled on MOLTS and HCP forms Bone density finding 385 226839 M85.89 Sleep apnea 88660538 G47 .30 - using cpap Chronic ob structive pulmonary disease 33929778 J44.9 - was previously following with pulmonolog y- not currently on any inhalers- ordered PFT testing to confirm the diagnosis Essential hypertension 00396976 I10 - at goal- BP today 126/79- c/w lisinopril 20mg-HCTZ 25mg QD Pt counselled on:-Dietar y Approaches to Stop Hypertensi on (DASH) is an eating plan rich in fruits, vegetables , whole grains, fish, poultry, nuts, legumes, and low-fat dairy. These foods are high in meza nutrients such as potassium, magnesium, calcium, fiber, and protein.-A dvised continued adherence to medication s and low salt diet - extensive counsellin g done regarding dietary habits.-En couraged regular aerobic exercise 30 min for 4-5 x week.-BP monitoring at home advised to bring log at every visit-Side -effects of high BP can cause Stroke, Heart attack and even d/w pt-D/w pt when to call 911 or reach out to Health care provider:> Think you are having a reaction to a medicine you are taking.>Phillip ve headaches that keep coming back (recurring ).>Feel dizzy.>Hav e swelling in your ankles.>Phillip ve trouble with your vision. Hypercholesterolemia 136 67560 E78.2 - previous lipid panel 04/2021: cholestero l-170, triglyceri de 109, HDL-61, LDL-87- c/w atorvastat in 10mg- will check levels, ordered Pt counselled on:- Eat a heart-heal thy diet - Choose healthy fats. Avoid saturated fats that are found primarily in red meat, tidwell, sausage, and full-fat dairy products. Advised to choose lean proteins like chicken, turkey, and fish when possible. Switch to low-fat or fat-free dairy. And use monounsatu rated fats like olive and canola oil for cooking. - Cut out the trans fats. Trans fats are found in fried food and processed foods, like cookies, crackers, and other snacks. - Eat more omega-3s. Counseled on eating more fish, including salmon, mackerel, singer ,nuts and seeds, like walnuts and flax seeds. - Increase your fiber intake. By eating more oats, brain, fruits, beans, and vegetables , can lower your LDL cholestero l levels. - Eat more fruits and veggies. Smoker 09213184 F17.200 - getting annual low dose CT scans- currently does not want to quit- pt has a 25 pack year surgery Tinnitus 80333506 H93.11 - right sided- followed ENT in the past Fatigue 99950496 R53.83 Z00.00 [id number] GELY ALVARADO MD Main Office [address] [place] [address] 11/18/2023 10:29:14 11/18/2023 11:04:42 Osteoporosis 99731192 M81.0 - newly diagnosed, noted on dexa scan of 10/15/23> femoral neck T-score of 2.7> AP spine and total hip have osteopenia - had a long discussion with patient on different types of therapy and patient would like to start with fosamax> no hx of gum/jaw problems> follows with dentist on a regular basis- will refer to endocrinol ogy- pt advised to c/w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
== END 2025-01-13 09:51 | disposition home or self-care (01) ==
PROVIDERS: PCP Student in an Organized Health Care Education/Training Program; Visit Provider Psychiatry & Neurology Neurology
DX: G24.3 Spasmodic torticollis (principal)
CPT/HCPCS: 64616

== ENCOUNTER → 2025-01-13 09:30 | Outpatient (BNVA) | payer MEDICARE, OTHER, SELFPAY | PROVIDERS: PCP Student in an Organized Health Care Education/Training Program; Visit Provider Psychiatry & Neurology Neurology | DX: G24.3 Spasmodic torticollis (principal); G47.33 Obstructive sleep apnea (adult) (pediatric); Z92.29 Personal history of other drug therapy | CPT/HCPCS: 64616; 99211; J0585 ==

== ENCOUNTER 2025-04-26 09:28 | Outpatient (AMB) | payer MEDICARE, OTHER, SELFPAY ==
--- NOTE | 2025-04-26 09:32 | MHC.OFFVIS ---
Vital Signs 04/26/25 09:34 Height 5 ft 4 in Weight 139 lb BMI 23.9 Intake Visit Reasons: Botox Intake Note: Patient presents for botox injection. practice supplied Allergies alendronate sodium [From Fosamax] Allergy (Intermediate, Verified 04/26/25 09:35) Diarrhea codeine Allergy (Intermediate, Verified 04/26/25 09:35) Vomiting Medication List - Last Reconciled 04/26/25 by Zakiya Lee MD alendronate (Fosamax) 70 mg PO QWEEK atorvastatin 10 mg PO DAILY baclofen 2 qam and 1 qhs as directedPO; calcium carbonate (Calcium 500) 500 mg PO DAILY lisinopril-hydrochlorothiazide 20-25 mg 1 tab PO DAILY onabotulinumtoxinA (Botox) 100 units IM [id number] HPI Comments Details: 74y/0 female comes for treatment of her cervical dystonia ? Side effects including spread of toxin effect, dysphagia, breathing difficulties , bronchitis etc was discussed in detail and the patient agreed to the procedure.An informed consent was obtained ??? Botulinum toxin type A 100units X 1 -was diluted with 2 cc of normal saline at a concentration of 25 units in 0.5cc saline. Lot number [id number] expiration 09/12 ??? Muscles injected ??? christo Splenius - 25 units each Right levator- 25 units ???Right Trapezius 25 ??? Total used 100 units PFSH Medical History Hyperlipidemia HTN (hypertension) Surgical History Hx of tubal ligation Hx of tonsillectomy Family History Father Myocardial infarct Social History Alcohol intake: current Patient Tobacco Use Status: Current everyday Tobacco user Physical Exam Vital Signs: BMI result Body Mass Index 23.9 Const Other: antecollis and right laterocollis General: cooperative and healthy appearing Orientation/consciousness: patient oriented x3 Neuro Other: mild head tremors , right laterocollis General: patient oriented x3, gait normal, tone normal and moves all extremities Cranial nerves: Yes CN's II-XII intact bilaterally Cognition (Neuro): normal cognition Gait exam (Neuro): Other gait observations present (antecollis) Office Procedures Botulinum toxin Injection 76581 - Dystonia Procedure code (CPT) selection complete Office Meds onabotulinumtoxinA 100 unit solution for injection Performing Provider: Zakiya Lee MD [place] [facility] [place] [facility] Administered by: Zakiya Lee MD on 04/26/25 09:58 Dose Route Admin Location Dispensed Lot Number Expiration Date [facility] Supervisor [employer] [facility] 100 unit IM 100 units [id number] ALLERGAN/BOTOX Comments: see HPI Assessment & Plan Assessment & Plan (1) Status post injection of onabotulinumtoxinA: Code(s): Z92.29 - Personal history of other drug therapy (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 Category: Medical (3) Obstructive sleep apnea: Code(s): G47.33 - Obstructive sleep apnea (adult) (pediatric) Category: Medical Plan Patient tolerated the procedure well she will call with any side effects continue CPAP compliance stressed Orders: Orders AMB Botulinum toxin Injection Today G24.3 - Spasmodic torticollis Medications: New onabotulinumtoxinA 100 units IM ONCE 1 ea 0RF dystonia G24.3 - Spasmodic torticollis Coding Level of Care Code Est Pt Level 1 (74516) Diagnoses Status post injection of onabotulinumtoxinA Z92.29 Spasmodic torticollis G24.3 Obstructive sleep apnea G47.33 CPT Codes Botox Injection - Botox 4: 13681 - Dystonia ([id number])
[2025-04-26 09:34] VITALS: BMI 23.9
--- OUTSIDE RECORDS SUMMARY | 2025-04-26 10:24 | XMS_ITS | Data Portability ---
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 Plan of Treatment Reminders Order Date Submit Date Provider Last Modified By Organization Details Last Modified Time Details Appointments [id number] 2024 10:15A M GELY ALVARADO MD Not available Not available Not available Lab CBC w/ auto diff 2023 [facility]E [facility], [address] [place], [address], 09/18/2024 06:10:31 TSH, ultra-sen sitive, serum 2023 024 [facility], [address] [place], [address], 09/18/2024 06:10:33 ALT (alanine aminotran sferase), serum or plasma 2023 OFE [facility] (Centralized Electronic Ordering - All Locations), Patient Can Go To The Location Of Their Choice, [address] 09/18/2024 06:10:34 lipid panel, serum 2023 OFE [facility] (Centralized Electronic Ordering - All Locations), Patient Can Go To The Location Of Their Choice, [address] 09/18/2024 06:10:32 lipid panel, serum 2022 023 OFE [facility], [address], [address], [place], [address], 05/30/2023 16:48:45 BMP, serum or plasma 2022 023 OFE [facility], [address], [address], [place], [address], 05/30/2023 16:48:44 CBC w/ auto diff 2022 023 OFE [facility], [address], [address], [place], [address], 05/30/2023 16:31:38 TSH, serum or plasma 2022 023 OFE [facility], [address], [address], [place], [address], 05/30/2023 16:48:46 Referral endocrino logy referral 2023 024 [email or web address] Ninfa Vaughn MD, [address] , [facility], [place], [address], 12/15/2023 11:04:27 Procedures None recorded. Surgeries None recorded. Imaging LDCT, chest, for lung cancer screening 2023 024 [facility], [address] [place], [address], 12/08/2024 11:40:05 MAMMO, screening , bilateral 2023 024 [facility], [address], [address], [place], [address], 10/26/2024 16:56:31 bone density 2022 023 OFE Not available 10/15/2023 15:27:56 Medication Orders Fosamax 70 mg tablet 2023 024 OFE [facility], [address] [place] [address], [place], [address], 11/26/2023 09:18:15 Patient TargetsNo targets recorded. Patient Instructions Encounter Date Encounter Id Patient Instructions Last Modified By Organization Details Last Modified Time 05/29/2023 [id number] advance care planning: care instructions Not available 05/29/2023 10:49:38 advance directives: care instructions Not available 05/29/2023 10:49:37 complete PFT* [email or web address] Not available 11:20:02 well visit, over 65: care instructions Not available 05/29/2023 10:49:37 preventing falls : care instructions Not available 05/29/2023 10:49:37 11/18/2023 [id number] osteoporosis: care instructions Not available 11/18/2023 10:55:00 09/16/2024 [id number] advance care planning: care instructions Not available 09/16/2024 14:42:28 osteoporosis: care instructions Not available 09/16/2024 14:08:37 chronic obstructive pulmonary disease (COPD): care instructions Not available 09/16/2024 14:08:38 learning about copd and how to prevent lung infections Not available 09/16/2024 14:08:37 sleep apnea: car e instructions Not available 09/16/2024 14:08:38 high blood pressure: care instructions Not available 09/16/2024 14:08:37 learning about high blood pressure Not available 09/16/2024 14:08:37 tinnitus: care instructions Not available 09/16/2024 14:08:38 Reason for Referral Endocrinology Referral for O steoporosis Referring Physician: Gely Alvarado, Family Medicine, Encounter Date: 11/18/2023 Results Created Date [...] 16:31:37 05/30/2005/30/2023 COMPL ETE CBC WITH DIFF RDW-SD 44.3 [...] 05/30/2005/30/2023 COMPL ETE CBC WITH DIFF eo # [...] Go To The Location Of Their Choice, [id number] 05/30/2023 16:48:45 05/30/20 23 05/30/2023 LIPID PANEL LDL cholesterol, calculated 97 mg/dL (0-130 ) Not Available [facility] (Centralized Electronic Ordering - All Locations) Patient Can Go To The Location Of Their Choice, [address] 05/30/2023 16:48:45 05/30/20 23 05/30/2023 LIPID PANEL non HDL cholesterol (calc) 121 mg/dL (<160) Not Available [facility] (Centralized Electronic Ordering - All Locations) Patient Can Go To The Location Of Their Choice, 05/30/2023 16:48:45 05/30/20 23 05/30/2023 TSH WITH REFLE X TO FT4 TSH 1.13 uIU/m L (0.4-4 .2) Not Available [facility] (Centralized Electronic Ordering - All Locations) Patient Can Go To The Location Of Their Choice, 05/30/2023 16:48:46 08/24/20 24 08/24/2024 CMP, serum or plasm a sodium 141 Not Available [address], [address], 08/24/2024 20:56:20 08/24/20 24 08/24/2024 CMP, serum or plasm a potassium 3.8 Not Available [address], [address], 08/24/2024 20:56:20 08/24/20 24 08/24/2024 CMP, serum or plasm a glucose 123 Not Available [address], [address], 08/24/2024 20:56:20 08/24/20 24 08/24/2024 CMP, serum or plasm a BUN 10 Not Available [address], [address], 08/24/2024 20:56:20 08/24/20 24 08/24/2024 CMP, serum or plasm a creatinine 0.70 Not Available [address], [address], 08/24/2024 20:56:20 09/17/20 24 09/17/2024 CBC WITH DIFFE RENTI AL/PL ATELE T WBC 8.2 x10e3 /uL 3.4-10 .8 normal Not Available [facility] ([facility]) [address] [place], [address], 09/18/2024 06:10:31 09/17/20 24 09/17/2024 CBC WITH DIFFE RENTI AL/PL ATELE T RBC 4.30 x10e6 /uL 3.77-5 .28 normal Not Available [facility] ([facility]) [address] [place], [address], 09/18/2024 06:10:31 09/17/20 24 09/17/2024 CBC WITH DIFFE RENTI AL/PL ATELE T hemoglobin 13.5 g/dL 11.1-1 5.9 normal Not Available [facility] ([facility]) [address] [place], [address], 09/18/2024 06:10:31 09/17/20 24 09/17/2024 CBC WITH DIFFE RENTI AL/PL ATELE T hematocrit 41.7 % 34.0-4 6.6 normal Not Available [facility] ([facility]) [address] [place], [address], 09/18/2024 06:10:31 09/17/20 24 09/17/2024 CBC WITH DIFFE RENTI AL/PL ATELE T MCV 97 fL 79-97 normal Not Available [facility] ([facility]) [address] [place], [address], 09/18/2024 06:10:31 09/17/20 24 09/17/2024 CBC WITH DIFFE RENTI AL/PL ATELE T MCH 31.4 pg 26.6-3 3.0 normal Not Available [facility] ([facility]) [address] [place], [address], 09/18/2024 06:10:31 09/17/20 24 09/17/2024 CBC WITH DIFFE RENTI AL/PL ATELE T MCHC 32.4 g/dL 31.5-3 5.7 normal Not Available [facility] ([facility]) [address] [facility], [place], [address], 09/18/2024 06:10:31 09/17/20 24 09/17/2024 CBC WITH DIFFE RENTI AL/PL ATELE T RDW 12.1 % 11.7-1 5.4 Not Available [facility] ([facility]) [address] [facility], [place], [address], 09/18/2024 06:10:31 09/17/20 24 09/17/2024 CBC WITH DIFFE RENTI AL/PL ATELE T platelets 349 x10e3 /uL 150-45 0 normal Not Available [facility] ([facility]) [address] [facility], [place], [address], 09/18/2024 06:10:31 09/17/20 24 09/17/2024 CBC WITH DIFFE RENTI AL/PL ATELE T neutrophils 59 % not estab. normal Not Available [facility] ([facility]) [address] [place], [address], 09/18/2024 06:10:31 09/17/20 24 09/17/2024 CBC WITH DIFFE RENTI AL/PL ATELE T lymphs 29 % not estab. normal Not Available [facility] ([facility]) [address] [place], [address], 09/18/2024 06:10:31 09/17/20 24 09/17/2024 CBC WITH DIFFE RENTI AL/PL ATELE T monocytes 9 % not estab. normal Not Available [facility] ([facility]) [address] [place], [address], 09/18/2024 06:10:31 09/17/20 24 09/17/2024 CBC WITH DIFFE RENTI AL/PL ATELE T eos 2 % not estab. normal Not Available [facility] ([facility]) [address] [facility], [place], [address], 09/18/2024 06:10:31 09/17/20 24 09/17/2024 CBC WITH DIFFE RENTI AL/PL ATELE T basos 1 % not estab. normal Not Available [facility] ([facility]) [address] [facility], [place], [address], 09/18/2024 06:10:31 09/17/20 24 09/17/2024 CBC WITH DIFFE RENTI AL/PL ATELE T immature cells FRESCO ARTIST Not Available [facility] ([facility]) [address] [place], [address], 09/18/2024 06:10:31 09/17/20 24 09/17/2024 CBC WITH DIFFE RENTI AL/PL ATELE T neutrophils (absolute) 4.9 x10e3 /uL 1.4-7. 0 normal Not Available [facility] ([facility]) [address] [place], [address], 09/18/2024 06:10:31 09/17/20 24 09/17/2024 CBC WITH DIFFE RENTI AL/PL ATELE T lymphs (absolute) 2.4 x10e3 /uL 0.7-3. 1 normal Not Available [facility] ([facility]) [address] [place], [address], 09/18/2024 06:10:31 09/17/20 24 09/17/2024 CBC WITH DIFFE RENTI AL/PL ATELE T monocytes(ab solute) 0.7 x10e3 /uL 0.1-0. 9 normal Not Available [facility] ([facility]) [address] [place], [address], 09/18/2024 06:10:31 09/17/20 24 09/17/2024 CBC WITH DIFFE RENTI AL/PL ATELE T eos (absolute) 0.2 x10e3 /uL 0.0-0. 4 normal Not Available [facility] ([facility]) [address] [facility], [place], [address], 09/18/2024 06:10:31 09/17/20 24 09/17/2024 CBC WITH DIFFE RENTI AL/PL ATELE T baso (absolute) 0.1 x10e3 /uL 0.0-0. 2 normal Not Available [facility] ([facility]) [address] [facility], [place], [address], 09/18/2024 06:10:31 09/17/20 24 09/17/2024 CBC WITH DIFFE RENTI AL/PL ATELE T immature granulocytes 0 % not estab. Not Available [facility] ([facility]) [address] [facility], [place], [address], 09/18/2024 06:10:31 09/17/20 24 09/17/2024 CBC WITH DIFFE RENTI AL/PL ATELE T immature grans (abs) 0.0 x10e3 /uL 0.0-0. 1 Not Available [facility] ([facility]) [address] [facility], [place], [address], 09/18/2024 06:10:31 09/17/20 24 09/17/2024 CBC WITH DIFFE RENTI AL/PL ATELE T NRBC FRESCO ARTIST Not Available [facility] ([facility]) [address] [facility], [place], [address], 09/18/2024 06:10:31 09/17/20 24 09/17/2024 CBC WITH DIFFE RENTI AL/PL ATELE T hematology comments: FRESCO ARTIST Not Available [facility] ([facility]) [address] [facility], [place], [address], 09/18/2024 06:10:31 09/17/20 24 09/18/2024 LIPID PANEL cholesterol, total 180 mg/dL 100-19 9 normal Not Available [facility] ([facility]) [address] [facility] [place], [address], 09/18/2024 06:10:32 09/17/20 24 09/18/2024 LIPID PANEL triglyceride s 100 mg/dL 0-149 normal Not Available [facility] ([facility]) [address] [facility] [place], [address], 09/18/2024 06:10:32 09/17/20 24 09/18/2024 LIPID PANEL HDL cholesterol 61 mg/dL >39 normal Not Available [facility] ([facility]) [address] [facility] [place], [address], 09/18/2024 06:10:32 09/17/20 24 09/18/2024 LIPID PANEL VLDL cholesterol roddy 18 mg/dL 5-40 Not Available [facility] ([facility]) [address] [facility] [place], [address], 09/18/2024 06:10:32 09/17/20 24 09/18/2024 LIPID PANEL LDL chol calc ([facility]) 101 mg/dL 0-99 above high normal Not Available [facility] ([facility]) [address] [facility] [place], [address], 09/18/2024 06:10:32 09/17/20 24 09/18/2024 LIPID PANEL LDL calc comment: FRESCO ARTIST Not Available [facility] ([facility]) [address] [facility] [place], [address], 09/18/2024 06:10:32 09/17/20 24 09/18/2024 TSH RFX ON ABNOR MAL TO FREE T4 TSH 1.300 uIU/m L 0.450- 4.500 normal Not Available [facility] ([facility]) [address] [facility] [place], [address], 09/18/2024 06:10:33 09/17/20 24 09/18/2024 ALT (SGPT ) ALT (SGPT) 20 IU/L 0-32 normal Not Available [facility] ([facility]) [address] [facility], [place], [address], 09/18/2024 06:10:34 10/15/20 23 10/15/2023 US, breas t, limit ed PROCED URE: MM Digita l Mammo Bilate ral, US Breast Left Limite d INDICA TION: Six-mo nth follow -up diagno stic left mammog gila and ultras ound for a probab le compli cated cyst and screen ing of the right breast . No known palpab le abnorm alitie s. Mammog dashawn: COMPAR PUA: Multip le priors , most recent ly [...] gila. Biopsy marker is presen t more scrap sorter iorly in the upper outer left breast [...] very low level echoes within it, no event planning intern al vascul arity and which enhanc es [...] 2 (Benig n) Lay letter mailed to willfarhat franklyn WSN: [id number] Orderi ng Physic elliot: Vick Case ie Dictat ed By: Faby Hi MD Dictat ed Date/T shelby: 9:11 am Review ed By: Faby Hi MD Signed By: Faby Hi MD Signed Date/T shelby: 9:11 am Transc ribed By: LORENZAB Transc ribed Date/T shelby: 8:52 am Mikey estes Class: Outpat ient [facility] (Outpt Imaging) [address] [facility], [place], [address], 10/15/2023 09:30:24 10/15/20 23 10/15/2023 mm digit al mammo bilat eral PROCED [...] gila. Biopsy marker is presen t more scrap sorter iorly in the upper outer left breast [...] very low level echoes within it, no event planning intern al vascul arity and which enhanc es [...] (Benig n) Lay letter mailed to mikey estes WSN: [id number] Orderi ng Physic elliot: Vick Case ie Dictat ed By: Faby Hi MD Dictat ed Date/T shelby: 9:11 am Review ed By: Faby Hi MD Signed By: Faby Hi MD Signed Date/T shelby: 9:11 am Transc ribed By: LEEROY Transc riptio n Date/T shelby: 8:52 am Birads : Mikey estes Class: Outpat ient [email or web address] [place] [address] (Outpt Imaging) [address] [facility], [place], [address], 10/15/2023 09:29:42 10/15/20 23 10/15/2023 MAMMO , scree power, digit al, bilat eral No observ ation record ed. [email or web address] [place] [address] [facility] [address] [place], [address], 10/15/2023 09:30:38 10/15/20 23 10/15/2023 DEXA, axial skele ton Name:Priti Jensen t ID: [id number] Age:72 years Sex:Fe male Ethnic ity:Wh [...] determ ined by WHO criter ia. WSN: [id number] Orderi Physic elliot: Vick Case Dictat ed By: Akin Hurley rd, Jr, MD Dictat ed Date/T shelby: 3:22 pm Review ed By: Akin Hurley rd, Jr, MD Signed By: Akin Hurley rd, Jr, MD Signed Date/T shelby: 3:22 pm Transc ribed By: LEEROY Transc ribed Date/T shelby: 3:21 pm Patien t Class: Outpat ient [facility] (Outpt Imaging) [address] [place], [address], 10/15/2023 20:24:25 10/15/20 23 10/15/2023 bone densi ty No observ ation record ed. [facility] [address] [place], [address], 10/15/2023 16:49:10 11/26/19 24 11/26/2023 CT chest ldct lung progr am CT Chest LDCT Lung Progra m Reason : Other: ; LDCT LUNG CANCER SCREEN ING JOHN Granados, J CARLOS Estes SMOKER , 46 PACK YEAR HX; Clinic al Questi on(s): Other: ; Specia l Instru ctions : BOOK AT [address] [facility], [place], [place] BOOK AFTER 11 20 2023 NO [...] image 136 and 235. OTHER FINDIN GS: Business Objects Architect view findin gs, lines and tubes: None. [...] Catego rizati on based on Lung-R ADS 2 criter ia. https: //[email or web address]. [email or web address] [email or web address] R/File s/RADS /Lung- RADS/L toña-RA DS-202 2.pdf WSN: [id number] Orderi ng Physic elliot: Vick Case ie Dictat ed By: Michelle Sunshine MD Dictat ed Date/T shelby: 12:00 p Review ed By: Michelle Sunshine MD Signed By: Michelle Sunshine MD Signed Date/T shelby: 12:00 pm Transc ribed By: LEEROY Transc ribed Date/T shelby: 11:47 am Patien t Class: Outpat ient [facility] (Outpt Imaging) [address] [place], [address], 12/01/2023 10:54:53 11/26/19 24 11/26/2023 LDCT, chest , for lung cance r scree power No observ ation record ed. [facility] [address] [place], [address], 11/30/2023 15:29:32 03/05/20 24 06/12/2023 compl ete PFT* No observ ation record ed. OFE [facility] [address] [place], [address], 03/05/2024 15:42:58 10/26/20 24 10/26/2024 MAMMO , scree power, bilat eral No observ ation record ed. [email or web address] [facility] [address], [place], [address], 10/27/2024 09:03:04 10/26/20 24 10/26/2024 MAMMO , [...] (Benig n) Lay letter mailed to mikey estes WSN: [id number] Orderi ng Physic elliot: Vick Case ie Dictat ed By: Alin Rider MD Dictat ed Date/T shelby: 4:51 pm Review ed By: Alin Rider MD Signed By: Alin Rider MD Signed Date/T shelby: 4:51 pm Transc ribed By: LEEROY Transc riptio n Date/T shelby: 4:48 pm Birads : Patien t Class: Outpat ient [email or web address] [facility] (Outpt Imaging) [address] [facility], [place], [address], 10/27/2024 09:02:05 12/01/19 25 12/01/2024 CT chest ldct lung progr am CT Chest LDCT Lung Progra m Reason : Other: ; LDCT LUNG CANCER SCREEN ING PROGRA M, J CARLOS T SMOKER , 45 PACK YEAR HX; Clinic al Questi on(s): Other: ; Specia l Instru ctions : BOOK AT [address] [place] [address], [place], [place] BOOK AFTER 11 26 2024 NO CHEST [...] calcif ied granul omas. OTHER FINDIN GS: Business Objects Architect view findin gs, lines and tubes: None. [...] Catego rizati on based on Lung-R ADS 2 criter ia. https: //[email or web address]. [email or web address] [email or web address] [email or web address]/AC R/File s/RADS /Lung- RADS/L toña-RA DS-202 2.pdf WSN: [id number] Orderi ng Physic elliot: Vick Case ie Dictat ed By: Eleni Russell MD Dictat ed Date/T shelby: 4:53 pm Review ed By: Eleni Russell MD Signed By: Eleni Russell MD Signed Date/T shelby: 4:53 pm Transc ribed By: LEEROY Transc ribed Date/T shelby: 3:13 pm Patien t Class: Outpat ient [facility] (Outpt Imaging) [address], [place], [address], 12/02/2024 18:50:22 12/08/19 25 12/01/2024 LDCT, chest , for lung donna steve No observ ation record ed. [facility] [address] [facility], [place], [address], 12/08/2024 16:10:48 Result Notes None recorded. Problems Name Problem SNOMED Code Status Onset Date Resolution Date Notes Provider Name and Address Organization Details Recorded Time Breast lump 82347504 Completed 02/22/2016 Shiloh majano [facility] 6 10:23:48 Mammogra phy abnormal 631655216 Completed 201302/22/2016 RECORDED 04/18/20 14 8:34AM BY CARRIE SANTOS, OFFICE VISIT Shiloh majano [facility] 6 10:23:48 Screenin g for malignan t neoplasm of breast Completed 200706/07/2014 RECORDED 08/24/20 08 1:56PM BY MADELEINE REEVES MA, ANNOTATI ON/ADDEN DUM SONI Novak [facility] 7 15:31:46 Tobacco dependen ce syndrome 33228151 Completed 201006/07/2014 IMPRESSI ON: TRIEDN TO QUIT BUT ALOT OF NAUSEA ON CHANTIX. ; RECORDED 03/27/20 11 3:59PM BY MADELEINE REEVES MA, ANNOTATI ON/ADDEN DUM SONI Novak [facility] 7 15:31:54 [facility] hyperten vasile 19446858 Completed 201206/07/2014 RECORDED 12/15/19 13 1:52AM BY MADELEINE REEVES MA, ANNOTATI ON/ADDEN DUM Shiloh majano [facility] 6 10:23:48 Influenz a vaccine needed 08385554942 06 Completed 200906/07/2014 RECORDED 03/26/20 10 11:11AM BY SONI MARMOLEJO, HISTORIC AL SUMMARY Shiloh VangSabas reyna majano [facility] 6 10:23:48 Influenz a vaccine needed 83369683253 06 Completed 201302/22/2016 RECORDED 12/01/19 14 3:54PM BY CARRIE SANTOS, OFFICE VISIT Shiloh Shanks reyna majano [facility] 6 10:23:48 Adult health examinat ion Completed 201302/22/2016 IMPRESSI ON: PAP, MAMMO AND COLONOSC OPY ARE UTD, PT KNOWS SHE NEEDS TO QUIT SMOKING. ; RECORDED 12/02/19 14 1:11PM BY SHILOH López MD, OFFICE VISIT Shiloh Shanks reyna gretel [facility] 6 10:23:48 General examinat ion of patient Completed 200706/07/2014 IMPRESSI ON: PAP DONE TODAY,PT WILL SET UP COLONSOC OOPY, HAS BEEN HESITANT TO DO; RECORDED 08/24/20 08 1:56PM BY MADELEINE REEVES MA, ANNOTATI ON/ADDEN DUM [facility]iloh Shanks reyna majano [facility] 6 10:23:48 Well child 485140376 Completed 201106/07/2014 RECORDED 10/15/20 12 3:35PM BY CARRIE SANTOS, CHIOMAATI ON/ADDEN DUM Shiloh Shanks reyna majano [facility] 6 10:23:48 Blood in urine 21374069 Completed 201302/22/2016 RECORDED 04/18/20 14 8:34AM BY CARRIE SANTOS, OFFICE VISIT Shiloh Shanks reyna gretel [facility] 6 10:23:48 Blood in urine 23095434 Completed 200706/07/2014 IMPRESSI ON: LONG HX WORKUP, LAST SAW DR RAMIREZ 2003, HAD WANTED A RENAL ULTRASOU ND AND POSSIBLE VISIT WITH NEPHROLO GIST, WILL CHECK URINE AND US AND GO FROM THERE; RECORDED 08/24/20 08 1:56PM BY MADELEINE REEVES MA, ANNOTATI ON/ADDEN DUM [facility] maj[facility] 6 10:23:48 Pure hypercho lesterol emia 670566854 Completed 201309/30/2016 IMPRESSI ON: ON MEDS, CHECK FASTING AND PT TO CHECK LIVER TESTS Q 4 MONTHS WITH A STANDING ORDER; RECORDED 04/18/20 14 9:18AM BY SHILOH López MD, OFFICE VISIT [facility]iloh majano [facility] 6 15:38:38 [facility] hyperten vasile 23499377 Active 2013 IMPRESSI ON: WELL CONTROLL ED CONTINUE MEDS, CHECK K DUE TO HCTZ; RECORDED 04/18/20 14 9:17AM BY SHILOH López MD, OFFICE VISIT SONI Pickett [facility] 4 13:54:45 Malaise and fatigue 754236107 Completed 200706/07/2014 RECORDED 08/24/20 08 1:56PM BY MADELEINE REEVES MA, CHIOMAATI ON/ADDEN DUM [facility]iloh majano [facility] 6 10:23:48 Screenin g for malignan t neoplasm of breast Completed 201303/24/2017 RECORDED 04/18/20 14 8:34AM BY CARRIE SANTOS, OFFICE VISIT SONI Novak [facility] 7 15:31:46 Administ ration of bacteria l and viral vaccine Completed 200706/07/2014 RECORDED 02/17/20 08 3:31PM BY SHILOH López MD, OFFICE VISIT Shiloh majano, [facility] 6 10:23:48 Adult health examinat ion Completed 201106/07/2014 IMPRESSI ON: PAP TODAY, SET UP MAMMO, INCREASE EXERCISE , COLONSOC PY UTD 2008, REPEAT IN 10 YEARS.; RECORDED 10/15/20 12 3:35PM BY ERINN NOVAK ON/ADDEN DUM Shiloh majano, [facility] 6 10:23:48 Screenin g for malignan t neoplasm of colon Completed 200806/07/2014 RECORDED 09/18/20 09 8:11AM BY MADELEINE REEVES MA, ANNOTATI ON/ADDEN DUM Shiloh majano, [facility] 6 10:23:48 Tinnitus 49124914 Active 2013 IMPRESSI ON: NEW PROBLEM TO EXAMINER , PT TO SET UP APPT, UNDERSTA NDS IT IS IMPORTAN T; RECORDED 04/18/20 14 8:34AM BY CARRIE SANTOS, OFFICE VISIT Sybil majano [facility] 0 16:02:27 Tobacco dependen ce syndrome 15675119 Completed 201303/24/2017 IMPRESSI ON: URGED PT TO QUIT; RECORDED 04/18/20 14 8:45AM BY ERINN NOVAK ON/ADDEN DUM SONI Novak, [facility] 7 15:31:54 Abnormal weight loss 789829451 Completed 201206/07/2014 RECORDED 02/09/20 13 3:40PM BY ERINN FRANCO ON/ADDEN DUM Shiloh majano, [facility] 6 10:23:48 Screenin g for malignan t neoplasm of breast Completed 200706/27/2014 RECORDED 08/24/20 08 1:56PM BY MADELEINE REEVES MA, ANNOTATI ON/ADDEN DUM Carrie Santos MA null, [facility] 7 15:31:46 Tobacco dependen ce syndrome 98346657 Completed 201006/27/2014 IMPRESSI ON: TRIEDN TO QUIT BUT ALOT OF NAUSEA ON CHANTIX. ; RECORDED 03/27/20 11 3:59PM BY MADELEINE REEVES MA, ANNOTATI ON/ADDEN DUM Carrie Santos MA null, [facility] 7 15:31:54 [facility] l hyperten vasile [id number] Completed 201206/27/2014 RECORDED 12/15/19 13 1:52AM BY MADELEINE REEVES MA, ANNOTATI ON/ADDEN DUM Shiloh majano, [facility] 6 10:23:48 Influenz a vaccine needed [id number] 06 Completed 200906/27/2014 RECORDED 03/26/20 10 11:11AM BY SONI MARMOLEJO, HISTORIC AL SUMMARY Shiloh majano [facility] 6 10:23:48 Tobacco user [id number] Completed 201302/22/2016 IMPRESSI ON: STILL ON NICOTINE BUT WILL WEAN DOWN.; RECORDED 04/18/20 14 9:18AM BY SHILOH López MD, OFFICE VISIT Shiloh majano [facility] 6 10:23:48 History of clinical finding in subject [id number] Completed 201302/22/2016 IMPRESSI ON: STILL ON NICOTINE BUT WILL WEAN DOWN.; RECORDED 04/18/20 14 9:18AM BY SHILOH López MD, OFFICE VISIT Shiloh majano [facility] 6 10:23:48 Adult health examinat ion Completed 201306/27/2014 IMPRESSI ON: PAP, MAMMO AND COLONOSC OPY ARE UTD, PT KNOWS SHE NEEDS TO QUIT SMOKING. ; RECORDED 04/18/20 14 8:33AM BY ERINN NOVAK ON/ADDEN DUM Shiloh majano [facility] 6 10:23:48 General examinat ion of patient Completed 200706/27/2014 IMPRESSI ON: PAP DONE TODAY,PT WILL SET UP COLONSOC OOPY, HAS BEEN HESITANT TO DO; RECORDED 08/24/20 08 1:56PM BY MADELEINE REEVES MA, ERINN ON/ADDEN DUM Shiloh gambinoo gretel, [facility] 6 10:23:48 Well child 677021163 Completed 201106/27/2014 RECORDED 10/15/20 12 3:35PM BY ERINN NOVAK ON/ADDEN DUM Shiloh gambinoo gretel [facility] 6 10:23:48 Malaise and fatigue 417416391 Completed 200706/27/2014 RECORDED 08/24/20 08 1:56PM BY MADELEINE REEVES MA, CHIOMAATI ON/ADDEN DUM Shilohpriti gambinoo gretel, [facility] 6 10:23:48 Administ ration of bacteria l and viral vaccine Completed 200706/27/2014 RECORDED 02/17/20 08 3:31PM BY SHILOH López MD, OFFICE VISIT Shiloh majano, [facility] 6 10:23:48 Screenin g for malignan t neoplasm of colon Completed 200806/27/2014 RECORDED 09/18/20 09 8:11AM BY MADELEINE REEVES MA, CHIOMAATI ON/ADDEN DUM Shiloh majano, [facility] 6 10:23:48 Abnormal weight loss 268637268 Completed 201206/27/2014 RECORDED 02/09/20 13 3:40PM BY ERINN FRANCO ON/ADDEN DUM Shiloh Glabarber-Dalila galvanreyna gretel [facility] 6 10:23:48 Disorder of breast 46981873 Completed 02/22/2016 Shiloh Glading-Dalila galvanreyna null, [facility] 6 10:23:48 Skin irritati on 229412464 Completed 02/22/2016 Shiloh Glading-Dalila reyna null, [facility] 6 10:23:48 Abdomina l pain 68068050 Completed 02/22/2016 Shiloh Rula-Dalila gambinoo null, [facility] 6 10:23:48 Lesion of liver 348317116 Completed 03/25/2018 Shiloh Rula-Dalila galvanreyna gretel [facility] 8 15:58:08 Hypercho lesterol emia 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 Sybil majano, [facility] 0 16:02:27 Chronic obstruct deborah pulmonar y disease 69034815 Active 2020 Shiloh Horta-Dalila majano, [facility] 1 09:31:24 Hyperten vasile monitori ng status 210402621 Active 2021 Accuheal th - active CHELSEA Nelson, [facility] 2 14:36:30 Osteopor osis 87577126 Active 2022 GELY ALVARADO MD [address] [address], [place], [address] , [facility] 3 16:52:43 Notes:Some problems listed i n Documents: #[id number], #[id number] could not be added to this patient's chart. Please review these documents and add these problems to the patient's chart manually as needed. Problem Notes None recorded. Procedures Surgical History Date Name Laterality Status Provider Name and Address Organization Details Recorded Time 10/26/20 24 Most Recent Mammogram completed Tawanna Capellan [facility] 10/27/2024 09:02:01 09/16/20 24 Advanced Care Planning completed GELY ALVARADO MD [address] [facility] [address] [place] [address], [address], [facility] 09/16/2024 14:30:08 10/15/20 23 Most Recent Bone Density completed Little Jaquez [facility] 09/16/2024 13:50:40 05/29/20 23 Advanced Care Planning completed GELY ALVARADO MD [address], [address], [facility] 05/28/2023 13:55:45 05/15/20 22 Advanced Care Planning completed [email or web address] Salgado [facility] 05/15/2022 14:27:13 08/13/20 20 Mammogram both breasts completed Esha Stoddard [facility] 08/14/2020 08:41:53 05/03/20 20 Six-Item Cognitive Test completed Carrie Santos MA [facility] 05/03/2020 10:29:09 08/17/20 19 Date of Last Colonoscopy completed Esha Stoddard [facility] 08/14/2020 08:42:24 08/17/20 19 Endoscopic us exam esoph completed Esha Money [facility] 08/18/2019 11:17:20 08/17/20 19 Colonoscopy completed Esha Stoddard [facility] 08/18/2019 11:18:26 03/29/20 19 Mini-Cog Test completed Carrie Santos MA [facility] 03/29/2019 10:02:31 03/25/20 18 Mini-Cog Test completed Carrie Santos MA [facility] 03/25/2018 15:44:49 11/17/19 14 Date of Last Pap Smear completed Carrie Santos MA [facility] 03/25/2018 15:44:45 12/18/19 05 Breast Biopsy completed Danyelle Monae MA [facility] 05/15/2022 10:13:51 12/04/18 79 Tubal Ligation completed Carrie Santos MA [facility] 03/25/2018 15:50:05 11/17/18 58 Tonsillectomy completed Carrie Santos MA [facility] 02/22/2016 10:07:59 Imaging Results None recorded. Procedure Notes None recorded. Medical Equipment None Reported. Allergies Allergen ID Allergen Name Allergen Category Reaction Reaction Severity Criticality Documentation Date Start Date Code Code System Note Provider Name and Address Organization Details Recorded Time 8638 codeine medicatio n vomiting severe Not available 05/31/20142013 2670 RxNorm SONI Pickett [facility] 4 13:54:43 Medications Name Sig Start Date [...] Not Available Not Available Fluzone High-Dose Quad 2019- (PF) 240 mcg/0.7 mL IM syringe 10/27 completed Not Available Not Available Not Available Centrum Adult 50 Plus 1 capsule daily active Not Available Not Available No t Available Vitals Date Recorded Systolic blood pressure Diastolic blood pressure Provider Name and Address Organization Details Last Updated DateTime 11/18/2023 118 mm[Hg] 70 mm[Hg] GELY ALVARADO MD [address] [facility], [place], [address], [facility] 11/18/2023 11:00:21 Date Recorded Body height Body mass index (BMI) Body weight Heart rate Oxygen saturation Oxygen saturation in Arterial blood by Pulse oximetry Body temperature Systolic blood pressure Diastolic blood pressure Provider Name and Address Organization Details Last Updated DateTime 4 161.29 cm 23.7 kg/m2 43807.5 6 g 87 /min 97 % 97 % 98.4 [degF] 137 mm[Hg] 78 mm[Hg] Lesly [facility] 4 10:42:38 Date Recorded Systolic blood pressure Diastolic blood pressure Provider Name and Address Organization Details Last Updated DateTime 03/05/2024 130 mm[Hg] 70 mm[Hg] GELY ALVARADO MD [address] [place] [address], [address], [facility] 03/05/2024 11:41:54 Date Recorded Body height Body mass index (BMI) Body weight Heart rate Oxygen saturation Oxygen saturation in Arterial blood by Pulse oximetry Body temperature Systolic blood pressure Diastolic blood pressure Provider Name and Address Organization Details Last Updated DateTime 4 161.29 cm 23.9 kg/m2 08117.1 5 g 77 /min 100 % 100 % 98.2 [degF] 138 mm[Hg] 75 mm[Hg] Lesly Christian MA [facility] 4 11:27:13 Date Recorded Body height Body mass index (BMI) Body weight Oxygen saturation Oxygen saturation in Arterial blood by Pulse oximetry Heart rate Body temperature Systolic blood pressure Diastolic blood pressure Provider Name and Address Organization Details Last Updated DateTime 5 161.29 cm 24 kg/m2 22584.2 5 g 99 % 99 % 69 /min 97.8 [degF] 124 mm[Hg] 73 mm[Hg] Carrie Santos MA [facility] 5 10:40:36 Date Recorded Body height Body mass index (BMI) Body weight Oxygen saturation Oxygen saturation in Arterial blood by Pulse oximetry Heart rate Body temperature Systolic blood pressure Diastolic blood pressure Provider Name and Address Organization Details Last Updated DateTime 3 161.29 cm 23.7 kg/m2 67752.5 6 g 98 % 98 % 83 /min 98.1 [degF] 126 mm[Hg] 79 mm[Hg] Carrie Santos MA [facility] 3 10:26:24 Date Recorded Systolic blood pressure Diastolic blood pressure Provider Name and Address Organization Details Last Updated DateTime 09/16/2024 132 mm[Hg] 78 mm[Hg] GELY ALVARADO MD [address], [address] 09/16/2024 14:14:17 Date Recorded Body height Body mass index (BMI) Body weight Heart rate Oxygen saturation Oxygen saturation in Arterial blood by Pulse oximetry Body temperature Systolic blood pressure Diastolic blood pressure Provider Name and Address Organization Details Last Updated DateTime 4 161.29 cm 23.5 kg/m2 96368.9 7 g 77 /min 98 % 98 % 98.3 [degF] 137 mm[Hg] 71 mm[Hg] Little Alvarez MA [facility] 4 13:49:09 Social History Question Answer Notes LastModified by Organizat ion Details LastModified Time Tobacco Smoking Status Current Every Day Smoker Carrie Santos MA [facility] 09/30/2016 15:14:33 Is Blood Transfusion Acceptable In An Emergency? Yes [email or web address] Information not available 02/22/2016 What Is Your Level Of Caffeine Consumption? Moderate Information not available 09/16/2024 How Much Tobacco Do You Chew? None [email or web address] Information not available 05/02/2021 What Type Of Diet Are You Following? REGULAR [email or web address] Information not available 12/07/2014 Which Illicit Or Recreational Drugs Have You Used? None [email or web address] Information not available 02/22/2016 Live Alone Or With Others? With Others Clint [email or web address] Information not available 11/18/2023 Do You Take Precautions To Prevent Distracted Driving? Yes [email or web address] Information not available 02/22/2016 How Often Do You Need To Have Someone Help You When You Read Instructions, Pamphlets, Or Other Written Material From Your Doctor Or Pharmacy? Never [email or web address] Information not available 02/22/2016 Have You Served In The ? No [email or web address] Information not available 03/24/2017 Have You Or Anyone In Your Household Had Any Of The Following Symptoms In The Last 14 Days: Sore Throat, Cough, Chills, Body Aches For Unknown Reasons, Shortness Of Breath For Unknown Reasons, Loss Of Smell, Loss Of Taste, Fever At Or Greater Than 100 Degrees Fahrenheit? No [email or web address] Information not available 10/27/2020 Are You Or Anyone In Your Household A Health Care Provider Or Emergency Responder? No [email or web address] Information not available 10/27/2020 To The Best Of Your Knowledge Have You Been In Close Proximity To Any Individual Who Tested Positive For COVID-19? No [email or web address] Information not available 10/27/2020 *AWV ONLY* Are You Presently Prescribed Opioid Medication By PCP Or Specialist? If YES -Provider Assess The Benefit For Other, Non-opioid Pain Therapies Instead, Even If The Patient Does Not Have OUD But Is Possibly At Risk. No [email or web address] Information not available 05/02/2021 Have You Recently Traveled To A COVID-19 High Risk Area Or Gathering In The Last 10 Days? No [email or web address] Information not available 05/02/2021 What Was The Date Of Your Most Recent Tobacco Screening? 09/16/2024 Information not available 09/16/2024 How Many Children Do You Have? 3 [email or web address] Information not available 12/07/2014 What Is Your Current Pack Years? 20-29packyear s [email or web address] Information not available 11/18/2023 Do You Use Your Seat Belt Or Car Seat Routinely? Yes Information not available 11/14/2021 Seat Belts Used Routinely Yes [email or web address] Information not available 11/18/2023 Are You Sexually Active? No [email or web address] Information not available 05/02/2021 Smoke Alarm In Home Yes [email or web address] Information not available 11/18/2023 Do You Have Smoke And Carbon Monoxide Detectors In Your Home? Yes Information not available 11/14/2021 At What Age Did You Start Smoking Tobacco? 18 [email or web address] Information not available 05/02/2021 Are You Passively Exposed To Smoke? No [email or web address] Information no t available 02/22/2016 How Much Tobacco Do You Smoke? 0.5 PPD [email or web address] Information not available 09/30/2016 General Stress Level Low [email or web address] Information not available 11/18/2023 Do You Use Sunscreen Routinely? Yes [email or web address] Information not available 12/07/2014 How Many Years Have You Smoked Tobacco? 50 Information not available 05/02/2021 Sex: Unknown Functional Status Question Answer Note LastModified by Organizat ion Details LastModified Time Do you use any illicit or recreational drugs? No [email or web address] Information not available 11/18/2023 Do you or have you ever used any other forms of tobacco or nicotine? No [email or web address] Information not available 11/18/2023 What is your level of alcohol consumption? Occasional [email or web address] Information not available 12/07/2014 Do you or have you ever used smokeless tobacco? Never used smokeless tobacco [email or web address] Information not available 05/03/2020 Are you currently employed? No [email or web address] Information not available 05/02/2021 Are you able to walk? YESWOREST [email or web address] Information not available 11/18/2023 Are you able to care for yourself? Yes [email or web address] Information not available 12/07/2014 What is your occupation? Retired Information not available 11/14/2021 Do you or have you ever used e-cigarettes or vape? Never used electronic cigarettes [email or web address] Information not available 11/18/2023 What is your exercise level? None [email or web address] Information not available 12/07/2014 Mental Status None recorded. Family History Relationship Description Onset Age of this Age Resolved Age Notes LastModified by Organization Details LastModified Time Paternal Grandmother Carcinoma in situ of breast [email or web address] Not available 2024 10:32:03 Mother Hypertensive disorder [email or web address] Not available 02/21 10:12:41 Mother Hypercholest erolemia [email or web address] Not available 02/21 10:12:41 Father Coronary arterioscler osis [email or web address] Not available 2024 10:32:03 Sister Carcinoma in situ of breast [email or web address] Not available 2024 10:32:03 Notes:No FH of colon cancer Medical History Condition Response Other Y Gout N Blood Diseases N Kidney Stones N Hyperthyroidism N Breast Cancer N Lung Disease N COPD N Depression N Hypothyroidism N Defects or Inherited Disease N Anesthesia Complications N Headaches/Migraines N Varicose Veins N Anxiety Disorder N Obesity N Vision or Eye Problems N Arthritis N Head Injury/Concussion N Polyps N Infertility N Congenital Anomalies N Acid Reflux (GERD) N Cancer N Stroke N ADHD N Endometriosis N High Cholesterol Y Liver Disease N Fibromyalgia N Kidney Disease N Heart Problems N Ear or Hearing Problems N Hospitalizations N Thyroid Problems N GI Problems Y Acne N Skin Problems N Eating Disorder N Anemia N Constipation N Bladder Problems N Mental Illness N Ovarian Cancer N Diabetes N Blood Transfusions N Seizures/Epilepsy N Tuberculosis N AIDS/HIV N Congestive Heart Failure (CHF) N Eczema N Diverticulitis N Abuse/Domestic Violence N Allergies N Asthma N Reflux/GERD N Hepatitis N Pulmonary Embolism N Hypertension Y Osteoporosis N Chicken Pox Y Autism Spectrum Disorder (ASD) N Gynecological History Statement/Question Response Date of Last Pap Smear 11/17/2013 Date of Last Colonoscopy 08/17/2019 Most Recent Mammogram 10/26/2024 Most Recent Bone Density 10/15/2023 Obstetrics History GPAL:G 0 P 0 0 0 0 Immunizations Vaccine Type Date Status Note Provider Nam e and Address Organization Details Recorded Time Td (adult), 5 Lf tetanus toxoid, preservative free, adsorbed 4 completed Sybil Howe null, [facility] 05/03/2020 16:02:24 zoster live 4 completed Sybil Howe null, [facility] 05/03/2020 16:02:24 Influenza, split virus, trivalent, preservative 4 completed Sybil Howe null, [facility] 05/03/2020 16:02:24 Influenza, high-dose, trivalent, PF 5 completed Sybil Howe null, [facility] 05/03/2020 16:02:24 Influenza, split virus, quadrivalent, preservative 6 completed Sybil Howe null, [facility] 05/03/2020 16:02:24 Influenza, split virus, quadrivalent, preservative 7 completed Sybil Howe null, [facility] 05/03/2020 16:02:24 Tdap 4 completed Sybil Howe null, [facility] 05/03/2020 16:02:24 Influenza, split virus, quadrivalent, preservative 8 completed Sybil Howe null, [facility] 05/03/2020 16:02:24 Influenza, high-dose, quadrivalent, PF 0 completed SONI Novak, [facility] 10/27/2020 12:53:33 COVID-19, mRNA, LNP-S, PF, 30 mcg/0.3 mL dose 1 completed SONI Novak, [facility] 07/19/2021 11:17:14 COVID-19, mRNA, LNP-S, PF, 30 mcg/0.3 mL dose 1 completed SONI Novak, [facility] 07/19/2021 11:16:49 Influenza, split virus, quadrivalent, preservative 1 completed Danyelle Monae MA null, [facility] 11/14/2021 10:40:21 zoster recombinant 2 completed Farhana Blanco null, [facility] 05/15/2022 10:42:54 zoster recombinant 2 completed GELY ALVARADO MD [address] [address], [place], [address], [facility] 05/29/2023 19:04:44 Tdap 4 completed Sybil Howe null, [facility] 10/07/2024 10:44:29 Pneumococcal conjugate PCV20, polysaccharide LSI009 conjugate, adjuvant, PF 4 completed Sybil Howe null, [facility] 10/07/2024 10:45:05 pneumococcal polysaccharide PPV23 6 completed Not Available [facility] 12/04/2019 02:21:26 Pneumococcal conjugate PCV 13 8 completed Not Available [facility] 12/04/2019 02:21:38 Influenza, high-dose, trivalent, PF 9 completed Not Available [facility] 12/04/2019 02:22:09 Td (adult), 2 Lf tetanus toxoid, preservative free, adsorbed 7 completed Sybil Howe null, [facility] 05/03/2020 16:02:24 Tdap 8 completed Sybil Howe null, [facility] 05/03/2020 16:02:24 Influenza, split virus, trivalent, preservative 9 completed Sybil Howe null, [facility] 05/03/2020 16:02:24 Novel [id number], all formulations 0 completed Sybil Howe null, [facility] 05/03/2020 16:02:23 Influenza, split virus, trivalent, preservative 0 completed Ysbil Howe null, [facility] 05/03/2020 16:02:24 Influenza, split virus, trivalent, preservative 1 completed Sybil Howe null, [facility] 05/03/2020 16:02:23 Influenza, split virus, trivalent, preservative 2 completed Sybil Howe null, [facility] 05/03/2020 16:02:24 Influenza, split virus, trivalent, preservative 3 completed Sybil Howe null, [facility] 05/03/2020 16:02:24 Past Encounters Encounter ID Performer Location Encounter Start Date Encounter Closed Date Diagnosis/Indication Diagnosis SNOMED-CT Code Diagnosis ICD10 Code Diagnosis Note [id number] autoEComm erce [address] [facility] [place] [address] 07/24/2006 00:00:00 [id number] autoEComm erce [address] [facility] [place] [address] 03/20/2006 00:00:00 [id number] autoEComm erce [address] [facility] [place] [address] 02/06/2006 00:00:00 [id number] autoEComm erce [address] [facility] [place] [address] 12/27/2005 00:00:00 [id number] autoEComm erce [address] [facility] [place] [address] 02/11/2007 00:00:00 [id number] autoEComm erce [address] [facility] [place] [address] 02/17/2008 00:00:00 [id number] autoEComm erce [address] [facility] [place] [address] 08/24/2008 00:00:00 [id number] autoEComm erce [address] [facility] [place] [address] 03/15/2009 00:00:00 [id number] autoEComm erce [address] [facility] [place] [address] 09/18/2009 00:00:00 [id number] autoEComm erce [address] [place] [address] 03/26/2010 00:00:00 [id number] autoEComm erce [address] [place] [address] 06/27/2010 00:00:00 [id number] autoEComm erce [address] [place] [address] 12/31/2010 00:00:00 [id number] autoEComm erce [address] [facility] [place] [address] 03/27/2011 00:00:00 [id number] autoEComm erce [address] [facility] [place] [address] 09/27/2011 00:00:00 [id number] autoEComm erce [address] [facility] [place] [address] 04/15/2012 00:00:00 [id number] autoEComm erce [address] [facility] [place] [address] 10/15/2012 00:00:00 [id number] autoEComm erce [address] [facility] [place] [address] 02/08/2013 00:00:00 [id number] autoEComm erce [address] [facility] [place] [address] 12/01/2013 00:00:00 [id number] autoEComm erce [address] [facility] [place] [address] 04/18/2014 00:00:00 [id number] Shiloh orellana MD Main Office [address] [place] [address] 12/07/2014 15:20:59 12/07/2014 16:23:51 Adult health examination 045497556 pap done today,. is getting repeat mammogram views soon. Sampling o f vagina for Papanicolaou smear 943813166 no symptoms Essential hypertension 66040440 well controlled continue meds Pure hypercholesterolemia 630903951 continue meds Skin irritation 144488969 perianal after diarrheal illness, use med below Ex-smoker [id number] I discussed with pt her option of seeing a pulmonolog ist and asking about a low dose CT scan of chest for screening for lung malignancy in light of her long smoking hx, she will think about this and she will also discuss this option with her who was a smoker too [id number] Shiloh orellana MD Main Office [address] [place] [address] 05/18/2015 10:36:16 05/18/2015 11:29:33 Essential hypertension 58331510 well controlled continue meds Abdominal pain 77989371 RUQ pain with nausea, loose stools, on and off for a month, will get labs below, check Us, ? gallstones , see pt back in a few weeks but come up with next step over phone after labs and US done. [id number] Shiloh orellana MD Main Office [address] [place] [address] 06/07/2015 16:16:04 06/07/2015 16:46:16 Abdominal pain 88468289 better, US shows ? of hemangioma of liver, will ask Dr Araiza if imaging needs ot followup on this. [id number] Shiloh orellana MD Main Office [address] [place] [address] 10/05/2015 15:58:46 10/05/2015 16:35:55 Essential hypertension 83611246 I10 well controlled continue meds, a bit high here but very well controlled at home. Pure hypercholesterolemia 855545504 E78.0 continue meds, check fasting [id number] Shiloh orellana MD Main Office [address] [place] [address] [place] [address] 02/22/2016 09:47:19 02/22/2016 10:50:27 Adult health examination 565258663 Z00.00 all screening is utd, refuses PCV 23 Pure hypercholesterolemia 591210607 E78.0 continue meds, check labs Essential hypertension 08157336 I10 well controlled continue meds Lesion of liver 83629171 0 K76.9 needs repeat US 06/01 to determine stability, ? hemangioma Ex-smoker 5315963 Z87.89 1 pt not interested in lung cancer screening, she understand s it is recommende d. 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 pt refused lung cancer screenign program, aware if is there is she changes her mind MRI scan abnormal 005800 003 R93.8 needs repeat MRI/ MRCP of abdomen in a year to followup very small pancreatic lesions, is followed by DR Araiza he will order scan [id number] Shiloh orellana MD Main Office 3640 [facility] [address] [place] [address] 03/24/2017 15:29:56 03/24/2017 16:36:42 Adult health examination 852236616 Z00.00 all screening is utd, due for prevnar next visit Hypercholesterolemia 136 76512 E78.2 check fasting and liver tests, continue med Essential hypertension 63308259 I10 well controlled continue meds Cigarette smoker 7510751 7 F17.210 not interested in lung cancer screening program though she qualifies and she knows she should get Pain in right knee 57351 95642 23106 M25.561 had MRI, saw ortho, needs time, had MCL sprain from twisting injury [id number] Shiloh orellana MD Main Office 3640 [facility] [address] [place] [address] 09/24/2017 15:49:35 09/24/2017 16:29:41 Essential hypertension 56832898 I10 well controlled continue meds Tobacco de pendence syndrome 35343673 F17.290 long talk, suggested chantix, not ready but urged her to do soon Hypercholesterolemia 136 03148 E78.2 check fasting and liver tests, continue med Screening for malignant neoplasm of lung 225828139 Z12.2 sign pt up for this so she can get called, pt is reluctant but I want her to be aware of how the service works MRI scan abnormal 341255 003 R93.8 needs repeat MRI/ MRCP of abdomen to followup very small pancreatic lesions, is followed by DR Araiza he will order scan, pt got a call from his office to [employer] [facility] scan,s he will call them arrange scanad n followup visit [id number] Shiloh orellana MD Main Office 3640 [facility] [address] [place] [address] 03/25/2018 15:32:44 03/25/2018 16:20:58 Adult health examination 463407758 Z00.00 all screening is utd, due for prevnar next visit Hypercholesterolemia 136 50550 E78.2 check fasting continue med Essential hypertension 97001500 I10 well controlled continue meds Smoker 59675705 F17.200 encouraged her to stop Tremor 45109408 R25.1 head and tremor with finger to nose testing, refer to neurology and check thyroid labs Administra tion of pneumococcal vaccine 01086236 Z23 [id number] Shiloh orellana MD Main Office [address] [place] [address] 09/28/2018 15:54:21 09/28/2018 16:30:59 Essential hypertension 66065114 I10 well controlled continue meds Isolated c ervical dystonia 337414113 G24.8 this is thought causing pts head tremor as per neurology, continue meds, considerin g botox Sleep apnea 80243321 G47 .30 well treated on cpap [id number] Shiloh orellana MD Main Office 3640 [facility] [address] [place] [address] 03/29/2019 09:55:23 03/29/2019 10:44:35 Adult health examination 268869234 Z00.00 all shots utd, mammogram is due will arrange is more active due to care home , stopped smoking a month ago Screening for malignant neoplasm of breast 133045781 Z12.39 pt to arrange Sleep apnea 42223851 G47 .30 well treated on cpap Hypercholesterolemia 136 47676 E78.2 check fasting continue med Essential hypertension 95070627 I10 well controlled continue meds Ex-cigarette smoker 2810 19289 Z87.891 just quit smoking 1 month ago, definately smoked more than 30 pack year Screening for malignant neoplasm of lung 024931875 Z87.891 Eligible patients must have >=30 pack years Lesion of skin of face 3953532655 06 L98.9 dermatolog y in [place] just examined, will remove this, itches and pt scrathces it, it is irritated MRI scan abnormal 822335 003 R93.89 in 2016 MRI of abdomen with areas of pancreas that needed f/u pt has been contacted by GI and they are arranging a repeat MRI of abdomen for f/u I urged pt to go through with this despite possiblili ty of a large copay [id number] Wilmer Nixon MD Main Office 3640 [facility] [address] [place] [address] 06/23/2019 13:53:33 06/23/2019 14:56:04 Diarrhea 64834263 R19.7 ORIANA diet, hydrate with pedialyte or gatorade, sparing use of otc anti diarrheals until stool studies are back. Colon needed Unintentio nal weight loss 348641951 R63.4 labs today, likely from not eating enough. Dr Segal may want to do EGD also if labs ok. 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 no symptoms now, not on tx, dx by colonoscop y 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 this is thought causing pts head tremor as per neurology, continue meds, botox helps followed by neurology Smoker 75036276 F17.200 encouraged her to stop again Screening for malignant neoplasm of lung 561565031 Z87.891 pt has smokes more than 30 pack year Eligible patients must have >=30 pack years [id number] Shiloh orellana MD Main Office 3640 [facility] [address] [place] [address] 05/03/2020 09:48:07 05/03/2020 10:48:53 Adult health examination 569469093 Z00.00 all shots utd, mammogram is due in May, she will arrange is more active due to care home , still smoking Essential hypertension 02354962 I10 well controlled continue meds check lytes Smoker 42941889 F17.200 encouraged her to stop again, she had success with patches Hypercholesterolemia 136 25225 E78.2 continue med Multiple n odules of lung 614574790 R91.8 needs LDCT of chest annually, which is 11/05 [id number] Shiloh orellana MD Main Office [address] [address] 10/27/2020 12:40:51 10/27/2020 13:21:41 Essential hypertension 11915044 I10 well controlled continue meds check lytes since on hctz Hypercholesterolemia 136 63186 E78.2 continue med good level Sleep apnea 00420925 G47 .30 well treated on cpap, not getting sleepy in afternoon Smoker 22047153 F17.200 encouraged her to stop again, she had success with patches encouraged her to stop now [id number] Shiloh orellana MD Main Office 3640 [facility] [address] [place] [address] 05/02/2021 08:40:36 05/02/2021 09:37:39 Adult health examination 909852027 Z00.00 pt to get shingles vaccine, mammogram is due in jul, she will arrange is more active due to care home , still smoking Essential hypertension 86873845 I10 well controlled continue meds check lytes since on hctz Hypercholesterolemia 136 09830 E78.2 continue med check fasting Lymphocyti c-plasmacyt ic colitis 84966456 K52.832 no symptoms now, not on tx, dx by colonoscop y prn pepto bismol Smoker 28500099 F17.200 encouraged her to stop again, she had success with patches encouraged her to stop now Chronic ob structive pulmonary disease 86149584 J44.9 denies dyspnea, lungs with some reduction in air mvt, discussed with pt to let me know about symptoms and we will start inhaler [id number] Shiloh orellana MD Main Office 3640 [facility] [address] [place] [address] 11/14/2021 10:21:25 11/14/2021 10:59:08 Essential hypertension 48961835 I10 well controlled continue meds check lytes since on hctz and will sign up for [employer] monitoring , she is interested Chronic ob structive pulmonary disease 03369736 J44.9 denies dyspnea, lungs with some reduction in air mvt, discussed with pt to let me know about symptoms and we will start inhaler still smoking Hypercholesterolemia 136 91061 E78.2 continue med last fasting well controlled Tobacco de pendence syndrome 92466168 F17.290 pt restarted smoking 3 months ago, strongly encouraged her to quit again. is utd on LDCT [id number] Shiloh orellana MD Main Office 3640 [facility] [address] [place] [address] 05/15/2022 10:00:03 05/15/2022 11:04:57 Adult health examination 371787924 Z00.00 Pt is in good general health. Social and family history reviewed. Immunizati ons reviewed, advised annual flu shot. She is upt to date on dental and eye providers, mammogram up to date, colon up to date, Reviewed diet and exercise. Advance di rective discussed with patient 703965626 Z71.89 pt has this, given molst form Essential hypertension 99197300 I10 BP is controlled on present regimen, continue all meds at current dosages. Continue with low salt diet, exercise Chronic ob structive pulmonary disease 24868325 J44.9 pt get LDCT yearly Varicella vaccination 68 649165 Z23 pt had first , will get second Screening for malignant neoplasm of breast 902921110 Z12.39 up to date Screening for malignant neoplasm of cervix 552857484 Z12.4 Menopause present 984724 006 Z78.0 Tobacco de pendence syndrome 09565788 F17.200 enc pt to stop, does do LDCT Screening for malignant neoplasm of lung 680774029 Z87.891 Eligible patients must have >=20 pack years [id number] GELY ALVARADO MD Main Office 3640 [facility] [address] [facility] [place] [address] 05/29/2023 10:07:22 05/29/2023 10:52:35 Adult health examination 799281977 Z00.00 Health Maintenanc e FemaleA) Patient was counseled on healthy diet, exercise and nutrition. BMI of 23.7. B) ScreeningL ast Mammogram: start at age 52 stop at 76Date: 03/28/2023R esult: BIRADS-3Ne xt: needs a repeat on the right in 6 months, -09/2023 Last Pap smear: aged out Last Colonoscop [...] complaints Advance di rective discussed with patient 766662303 Z71.89 - counselled on MOLTS and HCP forms Bone density finding 385 231936 M85.89 Sleep apnea 42081705 G47 .30 - using cpap Chronic ob structive pulmonary disease 30758098 J44.9 - was previously following with pulmonolog y- not currently on any inhalers- ordered PFT testing to confirm the diagnosis Essential hypertension 74075492 I10 - at goal- BP today 126/79- [...] ve trouble with your vision. Hypercholesterolemia 136 67369 E78.2 - previous lipid panel 04/2021: cholestero [...] - Eat more fruits and veggies. Smoker 36657759 F17.200 - getting annual low dose CT scans- currently does not want to quit- pt has a 25 pack year surgery Tinnitus 17260635 H93.11 - right sided- followed ENT in the past Fatigue 37223387 R53.83 Z00.00 [id number] GELY ALVARADO MD Main Office 3640 [facility] [address] [place] [address] 11/18/2023 10:29:14 11/18/2023 11:04:42 Osteoporosis 75566803 M81.0 - newly diagnosed, noted on dexa [...] D and calcium- recommende d resistance training [id number] GELY ALVARADO MD Main Office [address] [place] [address] 03/05/2024 11:19:46 03/05/2024 11:48:04 Osteoporosis 22371710 M81.0 - newly diagnosed, noted on dexa scan of 10/15/23> femoral neck T-score of 2.7> AP spine and total hip have osteopenia - pt got bad diarrhea with fosamax, stopped medication - will refer to endocrinol ogy- pt advised to c/w vitamin D and calcium- recommende d resistance training Essential hypertension 05323795 I10 - at goal- BP today 138/75 [...] ve trouble with your vision. Hypercholesterolemia 136 46624 E78.2 - at goal- previous lipid panel [...] Eat more fruits and veggies. Sleep apnea 31332981 G47 .30 - using cpap Chronic ob structive pulmonary disease 26860646 J44.9 - was previously following with pulmonolog y- not currently on any inhalers- PFT was normal Smoker 35136937 F17.200 - getting annual low dose CT scans- currently does not want to quit- pt has a 25 pack year surgery Tinnitus 80201572 H93.11 - right sided- followed ENT in the past [id number] GELY ALVARADO MD Main Office [address] [address] 09/16/2024 13:26:31 09/16/2024 14:18:03 Adult health examination 456167461 Z00.00 Health Maintenanc e FemaleA) Patient was [...] any acute complaints Isolated c ervical dystonia 942094892 G24.8 - pt is following with pain management , getting botox shots Sleep apnea 56226921 G47 .30 - using cpap Chronic ob structive pulmonary disease 57329605 J44.9 - was previously following with pulmonolog y- not currently on any inhalers- PFT was normal Essential hypertension 49274507 I10 - at goal- BP today 137/71 [...] ve trouble with your vision. Hypercholesterolemia 136 99937 E78.2 - at goal- previous lipid panel [...] levels.- Eat more fruits and veggies. Osteoporosis 56619303 M8 1.0 - newly diagnosed, noted on dexa scan of 10/15/23> femoral neck T-score of 2.7> AP spine and total hip have osteopenia - pt got bad diarrhea with fosamax, stopped medication - will refer to endocrinol ogy -> was seen and started back on alendronat e- pt advised to c/w vitamin D and calcium- recommende d resistance training Tinnitus 04949100 H93.11 - right sided- followed ENT in the past Smoker 38210898 F17.200 - getting annual low dose CT scans- currently does not want to quit- pt has a 26 pack year Screening for malignant neoplasm of breast 270090841 Z12.39 Requires a tetanus booster 040890029 Z28.39 Administra tion of pneumococcal vaccine 72714724 Z23 Fatigue 61052373 R53.83 Z00.00 Advance di rective discussed with patient 342982348 Z71.89 - counselled on MOLTS and HCP forms [id number] GELY ALVARADO MD Main Office [address] [place] [address] 04/04/2025 10:29:45 04/04/2025 11:04:48 Isolated cervical dystonia 198166145 G24.8 - pt is following with pain management , getting botox shots> last was 01/13/2025- c/w baclofen 10mg TID as needed Chronic ob structive pulmonary disease 60501541 J44.9 - was previously following with pulmonolog y- not currently on any inhalers- pt continues to smoke: 1/2 pack daily- low dose CT scan: lung rad 2- PFT was normal Essential hypertension 01147853 I10 - at goal- BP today 124/73> will follow JNC-8 guidelines - c/w lisinopril [...] ve trouble with your vision. Hypercholesterolemia 136 67482 E78.2 - at goal- previous lipid panel 09/2024: cholestero l-180, triglyceri de 100, HDL-61, LDL-101- c/w atorvastat in 10mg Pt counselled on:- [...] l levels.- Eat more fruits and veggies. Seborrheic keratosis 394 680523 L82.1 - noted on patient's back- there is one lesion that is slightly more hyperpigme nted than the others- pt does have a appoitment with derm to follow-up on this Health Concerns Section Related Observation LastModified by Organization Detai ls LastModified Time None Recorded Concern Status LastModified by Organization Details LastModified Time None Recorded Advance Directives Directive None Recorded Payers Encounter Date Sequence Insurance Name Policy Number Policy Smith Covered Member ID Smith Member ID Guarantor Name 05/29/2023 2 FOR LIFE ( - MEDICARE SUPPLEMENT) Clint Prater [id number] Noemi Prater 05/29/2023 1 [place] [employer] Noemi Prater [id number] Noemi Prater 11/18/2023 2 FOR LIFE ( - MEDICARE SUPPLEMENT) Clint Prater [id number] Noemi Prater 11/18/2023 1 [place] [employer] Noemi Prater [id number] Noemi Prater 03/05/2024 2 FOR LIFE ( - MEDICARE SUPPLEMENT) Clint Prater [id number] Noemi Prater 03/05/2024 1 [place] Noemi Prater [id number] Noemi Kevin Moi 09/16/2024 2 FOR LIFE ( - MEDICARE SUPPLEMENT) Clint Jenningsdionne [id number] Noemi Kevin Moi 09/16/2024 1 [place] [employer] Noemi Prater [id number] Noemi Kevin Moi 04/04/2025 2 FOR LIFE ( - MEDICARE SUPPLEMENT) Clint Mccurdy Moi [id number] Noemi Kevin Moi 04/04/2025 1 [place] [employer] Noemi Prater [id number] Noemi Herberthdionne Prater Notes Date Note Type Note Provider Name and Address Organization Details Recorded Time 3 text/html Medicare Annual Wellness VisitReported bypatient.Diet and [...] is getting worse? No GELY ALVARADO MD [address], [address], [facility] 05/29/2023 19:05:28 4 text/html Noemi Prater is a 73 year [...] accident (right knee) GELY ALVARADO MD [address], [address], [facility] 11/18/2023 12:31:48 4 text/html Noemi Prater is a 73 year old F who presented to the clinic for follow-up on her chronic conditions. Pt has no complaints this time. GELY ALVARADO MD [address] [place] [address], [place], [address], [facility] 03/05/2024 11:44:33 4 text/html Medicare Annual Wellness VisitReported bypatient.Diet and [...] often or is getting worse? No GELY ALVARDAO MD [address], [address], [facility] 09/16/2024 14:43:05 5 text/html HyperlipidemiaReported bypatient.Type of hyperlipidemia:hypercholest erolemia Duration:chronic Control:improving Compliance:compliant with diet; exercises Risk Factors:hypertensionNotes:P t does swimming pool exercises and does Juvenal-chi.Hypertension F/UReported bypatient.Associated Symptoms:no dizziness; no lightheadedness; no chest pain; no shortness of breath; no palpitations; no edema; no calf pain with exertion Lifestyle:regular exercise; limiting/avoiding salt Medications:taking medications as directed; no side effects from medication Noemi Prater is a 74 year old F who presented to the clinic for follow-up on her chronic conditions. Pt has no complaints this time. GELY ALVARADO MD [address], [address], [facility] 04/04/2025 11:13:34 OBGyn Episode No OBEpisode recorded.
== END 2025-04-26 09:57 | disposition home or self-care (01) ==
LOC: HO.HSMS 09:29
PROVIDERS: PCP Student in an Organized Health Care Education/Training Program; Visit Provider Psychiatry & Neurology Neurology
DX: G24.3 Spasmodic torticollis (principal); Z92.29 Personal history of other drug therapy; G47.33 Obstructive sleep apnea (adult) (pediatric)
CPT/HCPCS: 64616

== ENCOUNTER → 2025-04-26 09:28 | Outpatient (BNVA) | payer MEDICARE, OTHER, SELFPAY | PROVIDERS: PCP Student in an Organized Health Care Education/Training Program; Visit Provider Psychiatry & Neurology Neurology | DX: G24.3 Spasmodic torticollis (principal); G47.33 Obstructive sleep apnea (adult) (pediatric); Z92.29 Personal history of other drug therapy | CPT/HCPCS: 64616; 99211; J0585 ==

== ENCOUNTER 2025-08-02 08:03 | Outpatient (AMB) | payer MEDICARE, OTHER, SELFPAY ==
--- NOTE | 2025-08-02 08:06 | A.OFFVIS_ITS ---
Vital Signs 08/02/25 08:07 Height 5 ft 4 in Weight 139 lb 8 oz BMI 23.9 BP 148/80 H Blood Pressure Location Rt brachial Position Sitting Pulse 82 Pulse Source Pulse Oximeter Pulse Oximetry (%) 100 Oxygen Delivery Method Room Air Intake Visit Reasons: Botox Intake Note: Botox Product Manager Financial Services Required: No Accompanied by: Self / Same As Patient Allergies codeine Allergy (Intermediate, Verified 08/02/25 08:06) Vomiting Medication List - Last Reconciled 08/02/25 by Zakiya Lee MD alendronate (Fosamax) 70 mg PO QWEEK atorvastatin 10 mg PO DAILY baclofen 2 qam and 1 qhs as directedPO; lisinopril-hydrochlorothiazide 20-25 mg 1 tab PO DAILY multivitamin 1 tab PO DAILY onabotulinumtoxinA (Botox) 100 units IM [id number] HPI Comments Details: 74y/0 female comes for treatment of her cervical dystonia ? Side effects including spread of toxin effect, dysphagia, breathing difficulties , bronchitis etc was discussed in detail and the patient agreed to the procedure.An informed consent was obtained ??? Botulinum toxin type A 100units X 1 -was diluted with 2 cc of normal saline at a concentration of 25 units in 0.5cc saline. Lot number [id number] expiration 09/12 ??? Muscles injected ??? christo Splenius - 25 units each Right levator- 25 units ???Right Trapezius 25 ??? Total used 100 units PFSH Medical History Hyperlipidemia HTN (hypertension) Surgical History Hx of tubal ligation Hx of tonsillectomy Family History Father Myocardial infarct Social History Alcohol intake: current Patient Tobacco Use Status: Current everyday Tobacco user Physical Exam Vital Signs: Last Vital Signs Pulse 82 08/02/25 08:07 BP 148/80 H 08/02/25 08:07 Pulse Ox 100 08/02/25 08:07 Oxygen Delivery Method Room Air 08/02/25 08:07 BMI result Body Mass Index 23.9 Const Other: antecollis and right laterocollis General: cooperative and healthy appearing Orientation/consciousness: patient oriented x3 Neuro Other: mild head tremors , right laterocollis General: patient oriented x3, gait normal, tone normal and moves all extremities Cranial nerves: Yes CN's II-XII intact bilaterally Cognition (Neuro): normal cognition Gait exam (Neuro): Other gait observations present (antecollis) Office Procedures Botulinum toxin Injection 25148 - Dystonia Procedure code (CPT) selection complete Office Meds onabotulinumtoxinA 100 unit solution for injection Performing Provider: Zakiya Lee MD Performing Location: [facility] Administered by: Zakiya Lee MD on 08/02/25 08:29 Dose Route Admin Location Dispensed Lot Number Expiration Date [facility] [employer] 100 unit IM 100 units [id number] [employer]ER[employer] /BOTOX Total Dispensed Waste 100 units 0 % Comments: see HPI Assessment & Plan Assessment & Plan (1) Status post injection of onabotulinumtoxinA: Code(s): Z92.29 - Personal history of other drug therapy (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
[2025-08-02 08:07] VITALS: BP 148/80; PULSE 82; O2SAT 100; BMI 23.9
== END 2025-08-02 08:31 | disposition home or self-care (01) ==
LOC: HO.HSMS 08:04
PROVIDERS: PCP Student in an Organized Health Care Education/Training Program; Visit Provider Psychiatry & Neurology Neurology
DX: G24.3 Spasmodic torticollis (principal)
CPT/HCPCS: 64616

== ENCOUNTER → 2025-08-02 08:03 | Outpatient (BNVA) | payer MEDICARE, OTHER, SELFPAY | PROVIDERS: PCP Student in an Organized Health Care Education/Training Program; Visit Provider Psychiatry & Neurology Neurology | DX: G24.3 Spasmodic torticollis (principal); G47.33 Obstructive sleep apnea (adult) (pediatric); Z92.29 Personal history of other drug therapy | CPT/HCPCS: 64616; 99211; J0585 ==

== ENCOUNTER 2025-11-01 09:00 | Outpatient (AMB) | payer MEDICARE, OTHER, SELFPAY ==
--- NOTE | 2025-11-01 09:13 | A.OFFVIS_ITS ---
Vital Signs 11/01/25 09:14 Height 5 ft 4 in Weight 136 lb 6 oz BMI 23.4 BP 128/80 Blood Pressure Location Rt brachial Position Sitting Pulse 83 Pulse Source Pulse Oximeter Pulse Oximetry (%) 98 Oxygen Delivery Method Room Air Intake Visit Reasons: Botox Intake Note: Botox 100 Assistant Product Manager Required: No Accompanied by: Self / Same As Patient Allergies codeine Allergy (Intermediate, Verified 11/01/25 09:14) Vomiting Medication List - Last Reconciled 11/01/25 by Zakiya Lee MD alendronate (Fosamax) 70 mg PO QWEEK atorvastatin 10 mg PO DAILY baclofen 2 qam and 1 qhs as directedPO; lisinopril-hydrochlorothiazide 20-25 mg 1 tab PO DAILY multivitamin 1 tab PO DAILY onabotulinumtoxinA (Botox) 100 units IM [id number] HPI Comments Details: 74y/0 female comes for treatment of her cervical dystonia ??? * ??? Side effects including spread of toxin effect, dysphagia, breathing difficulties , bronchitis etc was discussed in detail and the patient agreed to the procedure.An informed consent was obtained ??? Botulinum toxin type A 100units X 1 -was diluted with 2 cc of normal saline at a concentration of 25 units in 0.5cc saline. Lot number [id number] expiration 04/12 ??? Muscles injected ??? christo Splenius - 25 units each c Right levator- 25 units ???Right Trapezius 25 ??? Total used 100 units PFSH Medical History Hyperlipidemia HTN (hypertension) Surgical History Hx of tubal ligation Hx of tonsillectomy Family History Father Myocardial infarct Social History Alcohol intake: current Patient Tobacco Use Status: Current everyday Tobacco user Physical Exam Vital Signs: Last Vital Signs Pulse 83 11/01/25 09:14 BP 128/80 11/01/25 09:14 Pulse Ox 98 11/01/25 09:14 Oxygen Delivery Method Room Air 11/01/25 09:14 BMI result Body Mass Index 23.4 Const Other: antecollis and right laterocollis General: cooperative and healthy appearing Orientation/consciousness: patient oriented x3 Neuro Other: mild head tremors , right laterocollis General: patient oriented x3, gait normal, tone normal and moves all extremities Cranial nerves: Yes CN's II-XII intact bilaterally Cognition (Neuro): normal cognition Gait exam (Neuro): Other gait observations present (antecollis) Office Procedures Botulinum toxin Injection 89563 - Dystonia Procedure code (CPT) selection complete Office Meds onabotulinumtoxinA 100 unit solution for injection Performing Provider: Zakiya Lee MD Performing Location: [facility] Administered by: Zakiya Lee MD on 11/01/25 14:37 Dose Route Admin Location Dispensed Lot Number Expiration Date [facility] [employer] Delivery 100 unit IM 100 units [id number] [employer]ER[employer] /BOTOX Total Dispensed Waste 100 units 0 % Comments: see hpi Assessment & Plan Assessment & Plan (1) Status post injection of onabotulinumtoxinA: Code(s): Z92.29 - Personal history of other drug therapy (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
[2025-11-01 09:14] VITALS: BP 128/80; PULSE 83; O2SAT 98; BMI 23.4
--- OUTSIDE RECORDS SUMMARY | 2025-11-01 10:08 | XMS_ITS | Clinical Summary ---
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 Active baclofen (LIORESAL) 10 MG tablet Take 10-20 mg by mouth 2 (two) times a day. 20 in the AM and 10 in PM Active fluocinonide 0.05 % external solution 4 Active lisinopril-hydroC HLOROthiazide (PRINZIDE,ZESTORE TIC) 20-25 mg per tablet Take 1 tablet by mouth daily. Active onabotulinumtoxin A (BOTOX INJ) Active bywrngwz-qwr-vurr -FA-vit K-lut 8 mg iron-400 mcg-50 mcg Tab Take by mouth. Active alendronate (FOSAMAX) 70 MG tabletIndications :Age-related osteoporosis without current pathological fracture Take 1 tablet (70 mg total) by mouth every 7 days. Take in the morning with a full glass of water, on an empty stomach, and do not take anything else by mouth or lie down for the next 30 min. 12 tablet 5 Active Active Problems Problem Noted Date Diagnosed Date Age-related osteoporosis wit hout current pathological fracture 08/24/2024 Assessment & Plan (08/22/2025 4:55 PM EDT): 74 y.o. post-menopausal woman with osteoporosis on bone density. She has not had any fractures as an adult. Her mother did fracture a hip later in life. She is getting a a reasonable amount of calcium via diet/supplement, although may need to add back some supplement to get to 1200 mg/day total & advised she split the calcium & MVI up to facilitate absorption. She sees dentist regularly. She had diarrhea & anorexia for ~ 1 day after a single dose of alendronate the first time she tried it but has been doing fine taking it since we resumed it last year (removed allergy from chart). We discussed concept of a drug holiday after a period of time with the bisphosphonates to help limit the risk of side effects (ONJ/AFF). Will repeat bone density in October & include labs with upcoming labs for PCP. To call when she has these done so we can track down the results. Assessment & Plan (08/24/2024 2:26 PM EDT): 73 y.o. woman with osteoporosis on bone density. She has not had any fractures as an adult. Her mother did fracture a hip later in life. She is post-menopausal. She continues to smoke. She is not unsteady or at high risk for falls. She is getting a good amount of calcium via diet/supplement, although advised she split the calcium & MVI up to facilitate absorption. She does not have heartburn & sees dentist regularly. She had diarrhea & anorexia for ~ 1 day after a single dose of alendronate. She does occasionally have diarrhea related to the lymphocytic colitis, so it is possible it was just coincidental. Reviewed normal bone physiology across the lifespan. Reviewed role of adequate calcium, vitamin D, weight-bearing exercise & avoidance of falls along with pharmacologic rx with indications, risks & benefits. Directed to written literature from [employer]. We discussed medication options, including anti-resorptives, i.e. bisphosphonates, either oral or IV; denosumab & briefly touched on other options. We discussed the potential risk of ONJ & AFF with the anti-resorptives & concept of a drug holiday after a period of time with the bisphosphonates to help limit the risk of side effects. Will check labs to evaluate for secondary causes. Will re-try alendronate & if has recurrent side effects, will try risedronate. Lymphocytic colitis 08/24/2024 Spasmodic torticollis 08/24/2024 Tinnitus 04/18/2014 Overview (08/24/2024): IMPRESSION: NEW PROBLEM TO EXAMINER, PT TO SET UP APPT, UNDERSTANDS IT IS IMPORTANT; RECORDED 04/18/2014 8:34AM BY GABRIELA SANTOS, OFFICE VISIT Essential hypertension 12/15/2012 Overview (08/24/2024): IMPRESSION: WELL CONTROLLED CONTINUE MEDS, CHECK K DUE TO HCTZ; RECORDED 04/18/2014 9:17AM BY SHILOH MAN MD, OFFICE VISIT RECORDED 12/15/2012 1:52AM BY MADELEINE TONY MA, ANNOTATION/ADDENDUM Tobacco dependence syndrome 03/27/2011 Overview (08/24/2024): IMPRESSION: TRIEDN TO QUIT BUT ALOT OF NAUSEA ON CHANTIX.; RECORDED 03/27/2011 3:59PM BY MADELEINE TONY MA, ANNOTATION/ADDENDUM IMPRESSION: URGED PT TO QUIT; RECORDED 04/18/2014 8:45AM BY GABRIELA SANTOS, ANNOTATION/ADDENDUM Encounters Date Type Department Care Team Description 08/22/2025 11:00 AM EDT Office Visit [facility] Endocrinology [address] [place] [id number] Ninfa Vaughn MD Age-related osteoporosis without current pathological fracture (Primary Dx) 08/22/2025 Orders Only [facility] Endocrinology [address] [facility] [address] Ninfa Vaguhn MD from Last 3 Months Immunizations Immunization Administration Dates Next Due COVID-19 (Pre-09/08) Pfizer Vaccine, mRNA, PF 02/18/2021,01/26/2021 [id number] FORMULATION 11/17/2009 INFLUENZA, SPLIT VIRUS, TRIV ALENT W/ PRESERVATIVE IM 09/12/2014,09/17/2013,08/21/2012,08/17,08/31/2010,09/18/2009 Influenza High-Dose Quadriva lent Preservative Free IM 08/22/2020 Influenza High-Dose Trivalen t Preservative Free IM 08/27/2019,08/17/2015 Influenza Quadrivalent w/ Pr eservative IM 08/14/2021,08/06/2018,08/27/2017,08/14 Pneumococcal conjugate PCV13 03/25/2018 Pneumococcal polysaccharide PPSV23 09/30/2016 Td (adult) 5 Lf Tetanus Toxo id, PF, Adsorbed 11/17/2013 Td (adult),2 Lf Tetanus Toxo id, PF, Adsorbed 12/23/1996 Tdap 11/17/2013,02/17/2008 Zoster live 12/10/2013 Zoster recombinant 07/18/2022,05/13/2022 Family History Medical History Relation Comments Heart attack Father Hypertension Father Hip fracture Mother Hypertension Mother Relation Status Comments Father Mother Social History Tobacco Use Types Packs/Day Years Used Date Smoking Tobacco: Every Day Cigarettes 0.5 58 Started: 1965 Smokeless Tobacco: Never Tobacco Cessation:Ready to Q uit: Not Asked; Counseling Given: Not Answered Alcohol Use Standard Drinks/Week Comments Yes 7 (1 standard drink = 0.6 oz pur e alcohol) Education Answer Date Recorded Are you interested in more education? Not on jennifefr e 03/17/2024 Are you concerned about learning? Not on file 03/17/2024 No 03/17/2024 No 03/17/2024 Digital Access Answer Date Recorded No 03/17/2024 No 03/17/2024 Reliable internet access at home? Not on file 03/17/2024 Device with a working camera? Not on file Comments Unknown Sex and Gender Information Value Date Recorded Sex Assigned at Not on file Legal Sex Female 11:21 AM EDT Gender Identity Female 08/15/2025 4:55 PM EDT Sexual Orientation Not on file Last Filed Vital Signs Vital Sign Reading Time Taken Comments Blood Pressure 110/62 08/22/2025 10:39 AM EDT Pulse 79 08/22/2025 10:39 AM EDT Temperature 36.1 C (97 F) 08/24/2024 10:52 AM EDT Respiratory Rate 16 08/24/2024 10:52 AM EDT Oxygen Saturation 96% 08/22/2025 10:39 AM EDT Inhaled Oxygen Concentration - - Weight 63 kg (139 lb) 08/22/2025 10:39 AM EDT Height 161.5 cm (5' 3.58 ) 08/22/2025 10:39 AM E DT Body Mass Index 24.17 08/22/2025 10:39 AM EDT Plan of Treatment Upcoming Encounters Date Type Department Care Team (Late st Contact Info) Description 08/22/2026 11:00 AM EDT Office Visit [facility] Endocrinology [address] [place] [address] Ninfa Vaughn MD [address] [place] [id number] Health Maintenance Due Date Last Done Comments LIPID PANEL 1952 DEPRESSION SCREENING 1964 SMOKING Hx and SMOKELESS TOBACCO SCREENING 1965 HEPATITIS C SCREENING 1970 COLOGUARD 1997 COLONOSCOPY 1997 COLORECTAL CANCER SCREENING 1997 FIT TEST 1997 FOBT 1997 SIGMOIDOSCOPY 1997 VIRTUAL COLONOSCOPY 1997 MAMMOGRAM 08/13/2022 08/13/2020 PNEUMOCOCCAL VACCINES (50+ years) (3 of 3 - PCV20 or PCV21) 03/25/2023 03/25/2018, 09/30/2016 Adult Td,Tdap Booster 11/17/2023 11/17/2013 , 11/17/2013, 02/17/2008, Additional history exists INFLUENZA VACCINE (#1) 2025 , 08/22/2020, 08/27/2019, Additional history exists COVID-19 VACCINE (3 - season) 2025 02/18/2021, 01/26/2021 CREATININE LEVEL 08/24/2025 08/24/2024 POTASSIUM LEVEL 08/24/2025 08/24/2024 BLOOD PRESSURE 02/20/2026 08/22/2025 RSV VACCINE (1 - 1-dose 75+ series) 2027 ZOSTER VACCINES Completed 07/18/2022, 04/18, 12/10/2013 OSTEOPOROSIS SCREENING INITIAL (ONE-TIME) Completed 08/22/2025, 10/15/2023 HEPATITIS A VACCINES Aged Out No long er eligible based on patient's age to complete this topic HIB VACCINES Aged Out No longer eligi ble based on patient's age to complete this topic MENINGOCOCCAL VACCINES (ACWY) Aged Out No longer eligible based on patient's age to complete this topic MENINGOCOCCAL VACCINES (B) Aged Out N o longer eligible based on patient's age to complete this topic Medical Devices Not on file Procedures Procedure Name Priority Date/Time Associated Diagnosis Comments BD DXA MONITORING Routine 08/22/2025 11: 03 AM EDT Age-related osteoporosis without current pathological fracture COMPREHENSIVE METABOLIC PANEL (CMP) Routine 08/24/2024 11:58 AM EDT Age-related osteoporosis without current pathological fracture from Last 3 Months or Most Recently Relevant to Health Maintenance Results * (ABNORMAL) Comprehensive metabolic panel (08/24/2024 11:58 AM EDT) SODIUM 141 133 - 146 mmol/L [facility] POTASSIUM 3.8 3.3 - 5.1 mmol/L [facility] CHLORIDE 100 96 - 108 mmol/L [facility] CO2 29 21 - 35 mmol/L [facility] BUN 10 6 - 19 mg/dL [facility] CREATININE 0.70 0.5 - 1.5 mg/dL [facility] GLUCOSE 123(H) 70 - 99 mg/dL [facility] ALBUMIN 4.4 3.9 - 4.8 g/dL [facility] TOTAL PROTEIN 7.6 6.5 - 8.0 g/dL [facility] CALCIUM 9.8 8.4 - 10.3 mg/dL [facility] ALKALINE PHOSPHATASE 69 39 - 117 U/L [facility] TOTAL BILIRUBIN 0.3 0.0 - 1.2 mg/dL [facility] AST 27 0 - 37 U/L [facility] ALT 29 0 - 40 U/L [facility] GLOBULIN 3.2 1 - 4.8 g/dL [facility] EGFR 92 >59 mL/min/1.7 3m2 [facility] Comment:Estimated glomerular filtration rate calculated using the CKD-EPI refit equation. ANION GAP 16 10 - 20 mmol/L [facility] Blood 08/24/2024 11:5 8 AM EDT 08/24/2024 12:01 PM EDT us Ninfa Vaughn MD LAB BLOOD BKR ORDERABL ES Final Result [facility] [address] [place] [address] * DEXA SCAN (10/15/2023 8:36 AM EST) us Historical Provider HEALTH MAINTENANCE Final Result from Last 3 Months or Most Recently Relevant to Health Maintenance Insurance [employer] MEDICARE SUPPLEMENT MEDICARE PART A & B [facility] [employer] MEDICARE SUPPLEMENT MEDICARE PART A & B [facility] [employer] MEDICARE SUPPLEMENT MEDICARE PART A & [place] [address] [place] [address] [employer] MEDICARE SUPPLEMENT MEDICARE PART A & [place] [address] [place] [address] [employer] MEDICARE SUPPLEMENT MEDICARE PART A & B [employer] MEDICARE SUPPLEMENT MEDICARE PART A & B Care Teams 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 It is not the complete legal health record.[facility]
== END 2025-11-01 09:42 | disposition home or self-care (01) ==
LOC: HO.HSMS 09:01
PROVIDERS: PCP Student in an Organized Health Care Education/Training Program; Visit Provider Psychiatry & Neurology Neurology
DX: G24.3 Spasmodic torticollis (principal)
CPT/HCPCS: 64616

== ENCOUNTER → 2025-11-01 09:00 | Outpatient (BNVA) | payer MEDICARE, OTHER, SELFPAY | PROVIDERS: PCP Student in an Organized Health Care Education/Training Program; Visit Provider Psychiatry & Neurology Neurology | DX: G24.3 Spasmodic torticollis (principal); Z92.29 Personal history of other drug therapy | CPT/HCPCS: 64616; 99211; J0585 ==